=== PATIENT | male | born 1945 | race Caucasian/White ===

== ENCOUNTER → 2017-11-13 07:07 | Outpatient (CLI) | payer MEDICARE, SELFPAY ==
[2017-11-13 09:41] LABS: ALB/GLOB Ratio 1.1 RATIO (0.9-2.4); AST(SGOT) 24 U/L (15-37); Alanine Aminotransfer ALT/SGPT 26 U/L (16-61); Albumin, Serum 3.6 g/dL (3.2-5.0); Alkaline Phosphatase 83 U/L (45-117); Anion Gap 4 (5-15); BUN 16 mg/dL (7-18); BUN/Creat Ratio 15.2 RATIO (10-20); Calcium,Total 8.4 mg/dL (8.5-10.1); Chloride 105 mmol/L (98-107); Cholesterol 146 mg/dL (200); Creatinine, Serum 1.05 mg/dL (0.70-1.30); EST Glomerular Filtration Rate 73 mL/min (>60); Est Glom Filt Rate - Afr Amer 89 mL/min (>60); Globulin 3.3 g/dL (2.2-4.2); Glucose 87 mg/dL (74-106); High Density Lipoprotein 53 mg/dL; Potassium 4.2 mmol/L (3.5-5.1); Protein, Total 6.9 g/dL (6.4-8.2); Sodium Level 140 mmol/L (136-145); Triglycerides 166 mg/dL; Very Low Density Lipoprotein 33 mg/dL (5-40)
== END ==
PROVIDERS: Family Provider Family Medicine; PCP Family Medicine; Visit Provider Family Medicine
DX: I10 Essential (primary) hypertension (principal); R35.0 Frequency of micturition
CPT/HCPCS: 36415; 80053; 80061

== ENCOUNTER → 2018-05-03 07:36 | Outpatient (CLI) | payer MEDICARE, SELFPAY ==
[2018-04-26 09:21] VITALS: BMI 27.4
--- NOTE | 2018-05-03 07:40 | US_ITS ---
STUDY: SCROTUM ULTRASOUND REASON FOR EXAM: Male, 72 years old. Bilateral groin swelling, shooting pain left side. TECHNIQUE: Ultrasound evaluation of the scrotum was performed with color Doppler and static [place]-scale imaging. COMPARISON: None. FINDINGS: RIGHT TESTICLE INTRATESTICULAR: There is a normal size of the right testicle. The right testicle measures 4.0 x 2.6 x 1.9 cm. There is a homogenous echotexture. There is normal arterial and normal venous vascularity. There is no demonstrated right testicular mass or cyst. EXTRATESTICULAR: The epididymis is normal in size. The epididymis head measures 0.7 x 1.0 x 0.7 cm. There is normal vascularity of the epididymis. There is no demonstrated epididymal cystic structure. There is no demonstrated hydrocele. There is no demonstrated varicocele. There is no demonstrated extratesticular mass or cyst. LEFT TESTICLE INTRATESTICULAR: There is a normal size of the left testicle. The left testicle measures 3.6 x 2.8 x 1.8 cm. There is a homogenous echotexture. There is normal arterial and normal venous vascularity. There is no demonstrated left testicular mass or cyst. EXTRATESTICULAR: The epididymis is normal in size. The epididymis head measures 0.9 x 1.0 x 0.9 cm. There is normal vascularity of the epididymis. There is no demonstrated epididymal cystic structure. There is a small hydrocele. There is no demonstrated varicocele. There is no demonstrated extratesticular mass or cyst. US/Testicular with Arterial Flow IMPRESSION: Small left hydrocele compared to the right, otherwise normal scrotal ultrasound. There is no demonstrated hernia. Electronically Signed: Zhen Valentine MD at 19:57 EST , Service support ,
[2018-05-03 09:44] LABS: ALB/GLOB Ratio 0.9 RATIO (0.9-2.4); AST(SGOT) 26 U/L (15-37); Alanine Aminotransfer ALT/SGPT 27 U/L (16-61); Albumin, Serum 3.5 g/dL (3.2-5.0); Alkaline Phosphatase 104 U/L (45-117); Anion Gap 9 (5-15); BUN 15 mg/dL (7-18); BUN/Creat Ratio 14.2 RATIO (10-20); Calcium,Total 8.7 mg/dL (8.5-10.1); Chloride 105 mmol/L (98-107); Cholesterol 170 mg/dL (200); Creatinine, Serum 1.06 mg/dL (0.70-1.30); EST Glomerular Filtration Rate 73 mL/min (>60); Est Glom Filt Rate - Afr Amer 88 mL/min (>60); Globulin 3.7 g/dL (2.2-4.2); Glucose 86 mg/dL (74-106); High Density Lipoprotein 51 mg/dL; Potassium 4.2 mmol/L (3.5-5.1); Protein, Total 7.2 g/dL (6.4-8.2); Sodium Level 143 mmol/L (136-145); Triglycerides 239 mg/dL; Very Low Density Lipoprotein 48 mg/dL (5-40)
== END ==
PROVIDERS: Family Provider Family Medicine; PCP Family Medicine; Referring Provider Family Medicine; Visit Provider Family Medicine
DX: R35.0 Frequency of micturition (principal); E78.5 Hyperlipidemia, unspecified; I10 Essential (primary) hypertension
CPT/HCPCS: 36415; 76870; 80053; 80061; 93976

== ENCOUNTER → 2018-10-21 | Outpatient (CLI) | payer MEDICARE, SELFPAY ==
[2018-10-20 16:22] VITALS: BMI 27.4
[2018-10-21 12:42] LABS: Absolute Lymphocyte Count 1.91 X10^3/ul (0.83-4.51); Absolute Neutrophil Count 4.3 X10^3/uL (2.0-7.7); Basophil# 0.02 X10^3/uL; Basophil% 0.3 % (0-1); Eosinophil# 0.15 X10^3/uL; Eosinophils% 2.2 % (0-5); Hematocrit 44.2 % (40-54); Hemoglobin 14.7 g/dl (13.0-16.5); Lymphocyte # 1.91 X10^3/ul (4.0); Lymphocyte % 27.6 % (19-41); Mean Corp Hgb Conc 33.3 g/gl (32-36); Mean Corpuscular Hgb 29.1 pg (27.0-32.0); Mean Corpuscular Volume 87.4 fL (80-94); Mean Platelet Vol. 9.6 fl (6.2-12.0); Monocyte# 0.58 X10^3/uL; Monocyte% 8.4 % (0-10); Neutrophil # 4.25 X10^3/uL (2.7-7.7); Neutrophil % 61.4 % (47-70); Platelet Count 263 K/mm3 (150-450); RBC Distribution Width CV 13.5 % (11.6-14.6); RBC Distribution Width SD 42.3 fl (35.1-43.9); Red Blood Count 5.06 M/mm3 (4.6-6.2); White Blood Count 6.9 K/mm3 (4.4-11.0)
[2018-10-21 12:47] LABS: POSITIVE COUNT NO; POSITIVE DIFFERENTIAL NO; POSITIVE MORPHOLOGY NO
[2018-10-31 09:47] LABS: Immunoglobulin E 56 IU/mL (6-495)
== END | disposition home or self-care (01) ==
LOC: BIMLAB 08:03
PROVIDERS: Family Provider Family Medicine; PCP Family Medicine; Visit Provider Family Medicine
DX: R06.00 Dyspnea, unspecified (principal); R06.89 Other abnormalities of breathing; J42 Unspecified chronic bronchitis
CPT/HCPCS: 36415; 82785; 85025

== ENCOUNTER → 2018-11-09 | Outpatient (CLI) | payer MEDICARE, SELFPAY ==
[2018-10-20 16:22] VITALS: BMI 27.4
--- NOTE | 2018-11-09 10:55 | MRI_ITS ---
STUDY: MRI LUMBAR SPINE WITHOUT CONTRAST REASON FOR EXAM: Male, 73 years old. Low back pain. TECHNIQUE: Standardized fat and water weighted pulse sequences were obtained in the sagittal and axial planes. COMPARISON: None FINDINGS: T12-L1: Normal endplates. Normal disc height, hydration and morphology. Normal bilateral facet joints. Normal central canal and bilateral lateral recesses. Normal bilateral intervertebral neural foramina. Normal lumbar lordosis. There is no substantial scoliosis. Normal conus medullaris that terminates at the L1. L1-2: Normal endplates. Normal disc height, hydration and morphology. Normal bilateral facet joints. Normal central canal and bilateral lateral recesses. Normal bilateral intervertebral neural foramina. L2-3: Mild bilateral facet hypertrophy and moderate ligament flavum hypertrophy. Mild bilobed disc protrusion produces mild spinal stenosis but no neural foraminal stenosis. L3-4: Mild bilateral facet hypertrophy and moderate ligament flavum hypertrophy. Mild bilobed disc protrusion produces mild spinal stenosis and mild bilateral neural foraminal stenosis. L4-5: Mild bilateral facet hypertrophy and moderate ligament flavum hypertrophy. Mild broad disc protrusion produces mild spinal stenosis with mild bilateral lateral recess stenosis and mild bilateral neural foraminal stenosis. L5-S1: Mild bilateral facet hypertrophy with fluid in the facet joints consistent with instability. 5 L retrolisthesis of L5 on S1 with a mild broad disc protrusion produces moderate spinal stenosis with moderate bilateral lateral recess stenosis with abutment of the S1 nerve roots bilaterally and mild bilateral neural foraminal stenosis. Normal visualized sacral ala. Normal visualized paraspinous soft tissue structures. MRI/Spine Lumbar (Routine) IMPRESSION: Multilevel degenerative changes, as described above. Electronically Signed: Dannie Boston MD at 15:23 EDT Tel , Service support ,
== END | disposition home or self-care (01) ==
PROVIDERS: Family Provider Family Medicine; PCP Family Medicine
DX: M48.061 Spinal stenosis, lumbar region without neurogenic claudication (principal)
CPT/HCPCS: 72148

== ENCOUNTER 2019-02-10 13:08 | Day surgery (SDC) | payer MEDICARE, SELFPAY ==
[2019-01-18 11:01] VITALS: BMI 27.4
[2019-02-10] VITALS (7 sets, daily range): BP systolic 127–157; BP diastolic 68–86; PULSE 55–80; RESP 16; TEMP 36.4–36.8; O2SAT 96–100; BMI 26.4
[2019-02-10] MEDS: Lactated Ringers 1,000 ML 100 ML IV (13:40)
--- NOTE | 2019-02-10 14:25 | RAD_ITS ---
STUDY: X-RAY - LUMBAR SPINE REASON FOR EXAM: Male, 73 years old. Lumbar epidural block at L4-L5 TECHNIQUE: 3 C-arm view(s) of the lumbar spine were obtained. 20.5 seconds fluoroscopy time. COMPARISON: None FINDINGS: These limited field of view C-arm images show a needle positioned posteriorly at the L4-L5 midline level. Correlate with procedure note. Electronically Signed: Endy Tenorio MD at 23:54 EDT , Service support , RAD/Spine 1 View Any Level
--- NOTE | 2019-02-10 14:33 | DCINST_ITS ---
- Discharge Diagnoses Current Active Problems: Lower back pain and lumbar radiculopathy, with neurogenic claudication and difficulty walking Reason(s) for Visit for Discharge Instructions: Receiving lumbar epidural steroid injection at the L4-5 under fluoroscopy guidance You will use the following diet at home:: No restrictions Your food should be the consistency of: Regular Discharge Activity: Return to Normal Activity May shower in (days): 1 May resume sexual activity in: No Restrictions Weight Bearing Status: Weight bearing as tolerated Call your doctor if your incision/area has: Continuous Slow Oozing, Sudden Increased Bleeding, Increased Pain/ Swelling, Increased Redness, Foul Smelling Discharge, Swelling at the incision site Call your doctor if you observe: Fever of 101 or Higher, Coldness, Increased Pain, Numbness or Tingling, Calf discomfort, Uncontrolled pain Suture Line Care: Avoid Pulling/Pushing, Avoid Pinching/Bending Remove Dressing in (days):: 1 Cleanse incision/area with: Soap & Water Allergies/Adverse Reactions: Allergies celecoxib [From Celebrex] Allergy (Verified 02/09/19 08:45) Other FLUOROQUINOLONES Adverse Reaction (Uncoded 02/09/19 08:45) Unknown Medications to take at Discharge Niacin [Niacin ER] 500 mg PO DAILY 05/28/14 Selenium 200 mcg PO DAILY 05/28/14 sildenafil 25 mg tablet 25 mg PO QDAY PRN #7 tab 11/23/17 finasteride 5 mg tablet 5 mg PO DAILY #90 tab 05/18/18 tamsulosin 0.4 mg capsule 0.4 mg PO DAILY #90 cap 09/01/18 montelukast 10 mg tablet 10 mg PO QPM #30 tab 10/20/18 meloxicam 15 mg tablet 15 mg PO DAILY #90 tab 12/27/18 Amlodipine Besylate/Benazepril [Amlodipine-Benazepril 5-10 mg] 1 cap PO DAILY 02/09/19 Pravastatin Sodium 40 mg PO QHS 02/09/19 Primary Care Physician: Godfrey Cifuentes DO [Primary Care Provider] - Test Results: Test results from this visit will be discussed in further detail at your follow- up appointment, if applicable. Please Follow Up With: Robert Cruz MD
--- NOTE | 2019-02-10 14:34 | PCM.OPRPT ---
Problem List (1) Intervertebral disc disorder with radiculopathy of lumbar region Status: Acute (2) Intervertebral disc disorder with radiculopathy of lumbar region Status: Acute (3) Other intervertebral disc degeneration, lumbar region Status: Acute (4) Other intervertebral disc degeneration, lumbar region Status: Acute (5) Radiculopathy of lumbar region Status: Acute (6) Radiculopathy of lumbar region Status: Acute Report of Operation Date of Procedure: 02/10/19 Pre-Operative Diagnosis: Lumbar degenerative disc disease, lumbar radiculopathy, lumbar disc disease with displacement and degenerative changes causing lumbar spinal stenosis and neurogenic claudication Post-Operative Diagnosis: Same Surgery/Procedure Performed:: Lumbar epidural steroid injection at the level of the L4-5 under fluoroscopy guidance Description of Surgical Findings:: Under sterile conditions. Patient placed in the prone position, pressure points were padded, patient was ready from the nursing and the anesthesia team. After identification of the side and the target area for the block under guided fluoroscopy, the entry site was marked with marking pen. I used Betadine for sterilization of the skin, sterile draping were applied. Using 25-gauge needle to infiltrate the skin with local anesthesia using preservative-free lidocaine 0.5% injected 2.5 mL at site of entry. Using guided fluoroscopy, accessed the the posterior epidural space using 18-gauge Touhy needles under midline approach, accessed the site was assisted with lateral fluoroscopy, followed by using onid-ps-hrjiknvdca technique using preservative-free normal saline, negative aspiration of CSF and blood. Injected contrast solution [2.5] mL under live fluoroscopy which showed good spread of the contrast to the posterior epidural space and to the targeted area of the injection at[ L4-5]. Injected [5] mL of mixture of preservative-free lidocaine and Kenalog [80] mg for the procedure which showed appropriate spread in the epidural space. Lazbuddie was removed, pressure dressing were applied. Patient tolerated the procedure well and was taken to the recovery. Type of Anesthesia:: Local MAC - Complications None
[2019-02-10] MEDS: Triamcinolone Acetonide 40 MG/ML Vial (14:44)
== END 2019-02-10 15:38 | disposition home or self-care (01) ==
LOC: SDC 13:08 → AC 13:10
PROVIDERS: Family Provider Family Medicine; PCP Family Medicine; Referring Provider Anesthesiology; Visit Provider Anesthesiology
PROC: 3E0S3BZ Introduction of Anesthetic Agent into Epidural Space, Percutaneous Approach (ICD-10-PCS; CPT 62322; principal; 2019-02-10 14:20)
DX: M51.16 Intervertebral disc disorders with radiculopathy, lumbar region (principal); M48.062 Spinal stenosis, lumbar region with neurogenic claudication; M47.26 Other spondylosis with radiculopathy, lumbar region; M99.53 Intervertebral disc stenosis of neural canal of lumbar region; N40.0 Benign prostatic hyperplasia without lower urinary tract symptoms; M19.90 Unspecified osteoarthritis, unspecified site; G47.30 Sleep apnea, unspecified; E78.00 Pure hypercholesterolemia, unspecified; I10 Essential (primary) hypertension; Z79.899 Other long term (current) drug therapy; Z87.891 Personal history of nicotine dependence
CPT/HCPCS: 62323; 64483; 72020; J7120

== ENCOUNTER → 2019-03-28 | Outpatient (CLI) | payer MEDICARE, SELFPAY ==
[2019-02-10 13:24] VITALS: BMI 26.4
[2019-03-28 11:29] LABS: PSA,Total - Annual Screen 2.36 ng/mL (0.00-4.00)
== END | disposition home or self-care (01) ==
LOC: LAB.FUTURE 09:17
PROVIDERS: Family Provider Family Medicine; PCP Family Medicine; Referring Provider Urology; Visit Provider Urology
DX: Z12.5 Encounter for screening for malignant neoplasm of prostate (principal)
CPT/HCPCS: 36415; 84153; G0103

== ENCOUNTER → 2019-09-29 11:05 | Outpatient (CLI) | payer MEDICARE, SELFPAY ==
[2019-04-11 09:02] VITALS: BMI 26.4
--- NOTE | 2019-09-29 11:08 | RAD_ITS ---
STUDY: X-RAY - CERVICAL SPINE REASON FOR EXAM: Male, 74 years old. Left shoulder pain, neck pain -- x years TECHNIQUE: 4 view(s) of the cervical spine were obtained. COMPARISON: None FINDINGS: Normal anterior atlantoaxial articulation. Normal odontoid process. Normal cervical lordosis. There is multi-level endplate spondylosis. Normal visualized intervertebral neuroforamina. There are atherosclerotic vascular calcifications of the carotid arteries. RAD/Cerv Spine 4 or 5 Views IMPRESSION: Spondylosis and disc space narrowing at the C4-C5 C5-6 and C6-C7 levels. Atherosclerotic calcification of the left carotid bifurcation. 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 Electronically Signed: Vazquez Stone, at 12:26 EDT , Service support ,
--- NOTE | 2019-09-29 11:12 | RAD_ITS ---
STUDY: X-RAY - LEFT SHOULDER REASON FOR EXAM: Male, 74 years old. Left shoulder pain, neck pain -- x years TECHNIQUE: 4 view(s) of the shoulder. COMPARISON: None. FINDINGS: Normal glenohumeral articulation. Normal acromioclavicular joint. Normal acromion. Normal humeral head and visualized proximal humerus. The soft tissue structures are unremarkable. Normal visualized pulmonary apex. RAD/Shoulder min 2 Views IMPRESSION: Normal x-ray examination of the shoulder. Electronically Signed: Vazquez Stone, at 12:26 EDT , Service support ,
== END ==
PROVIDERS: PCP Family Medicine; Referring Provider Anesthesiology; Visit Provider Anesthesiology
DX: M54.2 Cervicalgia (principal); M25.512 Pain in left shoulder
CPT/HCPCS: 72050; 73030

== ENCOUNTER → 2020-01-17 06:04 | Outpatient (CLI) | payer MEDICARE, SELFPAY ==
[2020-01-10 10:33] VITALS: BMI 26.4
--- NOTE | 2020-01-18 13:37 | STRESSREP ---
Stress Test Report Date: 01/18/2020 Procedure: Exercise tolerance test/imaging study Indications: Shortness of breath Consent: Per the patient Procedure: The patient exercised on a Eulalio protocol for 9 minutes achieving a peak heart rate of 141 bpm (97 % predicted maximal heart rate) with a peak blood pressure 128/80 mmHg and a peak MET capacity of 10.2 METs. The baseline ECG demonstrated normal sinus rhythm. The peak exercise ECG demonstrated no significant ischemic changes. EKG during recovery revealed no significant ischemic changes [There were no cardiac dysrhythmias pretest, during exercise, or recovery]. The functional capacity was considered excellent for age. There was [no complaint of chest discomfort during exercise or recovery]. The examination was discontinued secondary to dyspnea. Impression: 1. Technically adequate (percent predicted maximal heart rate greater than 85%) exercise tolerance test 2. Stress test is negative for exercise-induced EKG changes of ischemia 3. The test test is negative for exercise-induced chest pain 4. Functional capacity is excellent for age 5. Nuclear images pending Myocardial perfusion imaging study: Technique: The patient was injected with 11.4 mCi of technetium 99m Cardiolite and subsequently rest SPECT Cardiolite nuclear imaging was obtained in the horizontal long, vertical long, and short axis views. The patient exercised on a Eulalio protocol. Please see above for details. The patient was injected with 36 mCi of technetium 99m Cardiolite and subsequently stress SPECT Cardiolite nuclear imaging was obtained in the horizontal long, vertical long, and short axis views. A gated Cardiolite study at peak stress was obtained. Interpretation: Rest and stress SPECT Cardiolite nuclear imaging status post realignment, normalization, and attenuation correction, demonstrates normal myocardial radioisotope uptake after attenuation correction. The gated Cardiolite study demonstrates no significant regional wall motion abnormalities. The reported LVEF is 66 %. Impression: 1. There is no evidence of significant ischemia or infarction. 2. The gated Cardiolite study reports an LVEF of 66 %. This note was generated with [employer] software. It may contain incorrect words, spelling, and punctuation that were not noted in checking the note before signing.
== END ==
PROVIDERS: PCP Family Medicine; Referring Provider Family Medicine; Visit Provider Family Medicine
DX: R07.9 Chest pain, unspecified (principal)
CPT/HCPCS: 78452; 93017; A9500; A4216

== ENCOUNTER → 2020-02-01 09:48 | Outpatient (CLI) | payer MEDICARE, SELFPAY ==
[2020-01-10 10:33] VITALS: BMI 26.4
--- NOTE | 2020-02-01 09:50 | CDU_ITS ---
Reason For Study: Vertigo, Jaw pain Rt. Velocities/BP Lt. Velocities/BP Prox CCA 86.4/12.1 cm/sec. Prox CCA 107.1/15.1 cm/sec. Mid CCA 87.7/12.1 cm/sec. Mid CCA 124.7/15.2 cm/sec. Dist CCA 77.3/16 cm/sec. Dist CCA 90/15.2 cm/sec. Prox ICA 102.3/22.5 cm/sec. Prox ICA 135.7/29.8 cm/sec. Mid ICA 94.9/20 cm/sec. Mid ICA 86.4/20.6 cm/sec. Dist ICA 99.8/21.2 cm/sec. Dist ICA 86.4/22.5 cm/sec. Rt. ICA/CCA = 1.18. Lt. ICA/CCA = 1.27. Prox ECA 396.1/10.7 cm/sec. Prox ECA 86.4/2.4 cm/sec. Rt. Vert. 67.9/9 cm/sec. Lt. Vert. 59.7/12.4 cm/sec. Right Extracranial There is homogeneous, smooth atherosclerotic plaque noted in the right common carotid artery. There is heterogeneous, irregular atherosclerotic plaque noted in the right internal carotid artery. There is heterogeneous, irregular atherosclerotic plaque noted in the right external carotid artery. Antegrade flow is noted in the right vertebral artery. Left Extracranial There is homogeneous, smooth atherosclerotic plaque noted in the left common carotid artery. There is heterogeneous, irregular atherosclerotic plaque noted in the left internal carotid artery. There is heterogeneous, irregular atherosclerotic plaque noted in the left external carotid artery. Antegrade flow is noted in the left vertebral artery. Procedure Carotid Duplex [id number]. Exam performed in department. Interpretation Summary Irregular calcific plaque right carotid bulb and proximal internal and external carotid arteries <50% stenosis right internal carotid >50% stenosis right external carotid Irregular calcific plaque with shadowing at the proximal left internal carotid artery. 50-69% stenosis left internal carotid <50% stenosis left external carotid Patent and antegrade vertebrals bilaterally Ordering Physician: Godfrey Cifuentes Referring Physician: Godfrey Cifuentes Performed By: Ayleen Sher RVT and Student
== END ==
PROVIDERS: PCP Family Medicine; Referring Provider Family Medicine; Visit Provider Family Medicine
DX: R42 Dizziness and giddiness (principal); R68.84 Jaw pain
CPT/HCPCS: 93880

== ENCOUNTER → 2020-02-23 06:26 | Outpatient (CLI) | payer MEDICARE, SELFPAY ==
[2020-01-10 10:33] VITALS: BMI 26.4
--- NOTE | 2020-02-23 07:00 | MRI_ITS ---
STUDY: MRI CERVICAL SPINE WITHOUT CONTRAST REASON FOR EXAM: Male, 74 years old. Bilat shoulder pain and numbness x 4-6 weeks, neck pain TECHNIQUE: Standardized fat and water weighted pulse sequences were obtained in the sagittal and axial planes. COMPARISON: None FINDINGS: Normal foramen magnum and brainstem-cervical cord junction. Mild degenerative osteoarthrosis of the right lateral atlantooccipital articulation. Normal anterior atlantoaxial articulation. Normal odontoid process. Normal cervical lordosis. Normal vertebral bodies and posterior osseous elements. C2-3: Normal endplates. Normal disc height, signal and morphology. Normal central canal and intervertebral neural foramina. C3-4: Normal endplates. Normal disc height, signal and morphology. Normal central canal and intervertebral neural foramina. C4-5: Mild MODIC type II degenerative vertebral marrow fatty changes underneath the vertebral endplates. Minimal anterior marginal spurs. Mild disc space height narrowing. Normal central canal. Mild stenosis of the intervertebral neural foramina. C5-6: Pronounced disc space height narrowing with partial ankylosis of the vertebral bodies. Normal central canal and intervertebral neural foramina. C6-7: Minimal anterior marginal spurs. Asymmetric spurs arising from the uncovertebral joints, left greater than right. Moderate disc space height narrowing. Normal central canal. Moderate stenosis of the left intervertebral neural foramen. Mild stenosis of the right intervertebral neural foramen. C7-T1: Normal endplates. Normal disc height, signal and morphology. Normal central canal and intervertebral neural foramina. T1-T2, T2-T3 and T3-T4: (Sagittal only). Normal endplates. Normal disc height and morphology. Normal central canal and intervertebral neural foramina. Normal cervical cord. Normal visualized soft tissue structures. MRI/Spine Cervical (Routine) IMPRESSION: 1. Moderate C6-C7 disc space height narrowing, moderate stenosis of the left C6-C7 intervertebral neural foramen and mild stenosis of the right intervertebral neural foramen due to osteophytes arising from the uncovertebral joints. 2. Mild stenosis of the C4-C5 intervertebral neural foramina with mild disc space height narrowing. 3. Ankylosis of C5 and C6 vertebral bodies. 4. No MRI evidence of cervical extruded disc fragment. 5. Normal cervical spinal cord. Electronically Signed: Mitch Adhikari MD at 9:22 EDT , Service support ,
== END ==
PROVIDERS: PCP Family Medicine; Referring Provider Anesthesiology; Visit Provider Anesthesiology
DX: M54.12 Radiculopathy, cervical region (principal)
CPT/HCPCS: 72141

== ENCOUNTER → 2020-04-02 09:50 | Outpatient (CLI) | payer MEDICARE, SELFPAY ==
[2020-01-10 10:33] VITALS: BMI 26.4
[2020-04-01 10:22] VITALS: BMI 25.1
[2020-04-02 11:19] LABS: Erythrocyte Sedimentation Rate 25 mm/hr (0-20)
[2020-04-02 11:21] LABS: Absolute Lymphocyte Count 2.31 X10^3/uL (0.83-4.51); Absolute Neutrophil Count 3.7 X10^3/uL (2.0-7.7); Basophil# 0.03 X10^3/uL; Basophil% 0.4 % (0-1); Eosinophil# 0.07 X10^3/uL; Hemoglobin 13.3 g/dL (13.0-16.5); Lymphocyte # 2.31 X10^3/ul (4.0); Lymphocyte % 33.7 % (19-41); Mean Corp Hgb Conc 31.7 g/dL (32-36); Mean Corpuscular Volume 85.4 fL (80-94); Mean Platelet Vol. 8.5 fl (6.2-12.0); Monocyte# 0.73 X10^3/uL; Monocyte% 10.7 % (0-10); NRBC Flagged by Analyzer 0 % (0-5); Neutrophil # 3.69 X10^3/uL (2.7-7.7); Neutrophil % 53.9 % (47-70); Platelet Count 437 K/mm3 (150-450); RBC Distribution Width CV 15.1 % (11.6-14.6); RBC Distribution Width SD 47.4 fl (35.1-43.9); Red Blood Count 4.92 M/mm3 (4.6-6.2); White Blood Count 6.9 K/mm3 (4.4-11.0)
[2020-04-02 11:35] LABS: PSA,Total - Annual Screen 4.17 ng/mL (0.00-4.00)
== END ==
PROVIDERS: Orthopaedic Surgery; PCP Family Medicine; Referring Provider Urology; Visit Provider Urology
DX: M54.2 Cervicalgia (principal); Z12.5 Encounter for screening for malignant neoplasm of prostate
CPT/HCPCS: 36415; 84153; 85025; 85652; G0103

== ENCOUNTER → 2020-04-18 09:09 | Outpatient (CLI) | payer MEDICARE, SELFPAY ==
[2020-04-01 10:22] VITALS: BMI 25.1
[2020-04-18 10:05] LABS: ALB/GLOB Ratio 0.7 RATIO (0.9-2.4); AST(SGOT) 20 U/L (15-37); Alanine Aminotransfer ALT/SGPT 37 U/L (16-61); Albumin, Serum 3.1 g/dL (3.2-5.0); Alkaline Phosphatase 122 U/L (45-117); Anion Gap 3 (5-15); BUN 14 mg/dL (7-18); BUN/Creat Ratio 16.1 RATIO (10-20); Chloride 106 mmol/L (98-107); Cholesterol 148 mg/dL (200); Creatinine, Serum 0.87 mg/dL (0.70-1.30); EST Glomerular Filtration Rate 91 mL/min (>60); Est Glom Filt Rate - Afr Amer 110 mL/min (>60); Globulin 4.3 g/dL (2.2-4.2); Glucose 91 mg/dL (74-106); High Density Lipoprotein 51 mg/dL; Potassium 4.4 mmol/L (3.5-5.1); Protein, Total 7.4 g/dL (6.4-8.2); Sodium Level 139 mmol/L (136-145); Triglycerides 108 mg/dL; Very Low Density Lipoprotein 22 mg/dL (5-40)
== END ==
PROVIDERS: PCP Family Medicine; Referring Provider Family Medicine; Visit Provider Family Medicine
DX: E78.5 Hyperlipidemia, unspecified (principal); R07.9 Chest pain, unspecified
CPT/HCPCS: 36415; 80053; 80061

== ENCOUNTER → 2020-05-06 08:20 | Outpatient (CLI) | payer MEDICARE, SELFPAY ==
[2020-04-01 10:22] VITALS: BMI 25.1
--- NOTE | 2020-05-06 09:32 | NEURO ---
NCS and/or EMG Patient Report Ordering Doctor: Jacob Holloway DATE OF SERVICE: 05/06/20 Indication: Intermittent, bilateral, hand numbness. Symptoms have been present for several months and are exacerbated by physical activity. The patient reports a history of chronic neck pain with occasional radiation down the bilateral upper extremities. Evaluate for cervical radiculopathy. Findings: Nerve conduction studies were performed in the right and left upper extremities. The right median motor study recording the abductor pollicis brevis showed a normal amplitude, normal distal latency and normal conduction velocity. The right ulnar motor study recording the abductor digiti minimi showed a normal amplitude, normal distal latency and normal conduction velocity. No conduction block or focal slowing was present across the elbow. The right median sensory response recording digit two showed a reduced amplitude, prolonged latency and slowed conduction velocity. The right ulnar sensory response recording digit five showed a normal amplitude, latency and conduction velocity. The right radial sensory response recording over the extensor snuff box showed a normal amplitude, latency and conduction velocity. As routine median motor and sensory studies only demonstrated mild abnormalities, additional internal comparison studies were done to confirm this finding. Right median-ulnar mixed palmar latencies showed a prolonged median latency compared to the ulnar. The left median motor study recording the abductor pollicis brevis showed a normal amplitude and normal distal latency The left median sensory response recording digit two showed a normal amplitude, prolonged latency and normal conduction velocity. Left median-ulnar mixed palmar latencies showed a prolonged median latency compared to the ulnar. Needle EMG of the right upper extremity and cervical paraspinal muscles was performed. No active denervation was seen in any examined muscle. Motor units were large, long and polyphasic with reduced recruitment in the abductor pollicis brevis, first dorsal interosseous, and extensor indices muscles. Motor units were borderline large amplitude, long duration in the triceps and flexor carpi radialis muscles. All other muscles were normal. Needle EMG of the left upper extremity and cervical paraspinal muscles was performed. No active denervation was seen in any examined muscle. Motor units were large, long and polyphasic with reduced recruitment in the abductor pollicis brevis, first dorsal interosseous, and extensor indices muscles. Motor units were borderline large amplitude, long duration in the triceps and flexor carpi radialis muscles. All other muscles were normal. Impression: This is an abnormal and complex study. There is electrophysiologic evidence consistent with: 1. Bilateral median neuropathies across the wrists (mild on the right, mild on the left). There is no active denervation of the thenar muscles to suggest ongoing axonal loss. 2. Bilateral, chronic C8/T1 radiculopathies (moderate on the right, moderate on the left) without active denervation. 3. There is additional evidence suggestive, but not diagnostic of, mild, chronic C7 radiculopathies in both upper extremities. Thus, the patient has a double crush, two separate conditions that may result in upper extremity pain and similar sensory symptoms. Clinical correlation is needed in helping to determine the relative contributions of the two to the patients symptoms. Lastly, please note: because of the two co-existent conditions, this study would be theoretically insensitive in detecting an additional superimposed brachial plexopathy. David Santana D.O.
== END ==
PROVIDERS: PCP Family Medicine; Referring Provider Orthopaedic Surgery; Visit Provider Orthopaedic Surgery
DX: M54.2 Cervicalgia (principal)
CPT/HCPCS: 95886; 95911; 95912

== ENCOUNTER → 2020-06-06 08:44 | Outpatient (CLI) | payer MEDICARE, SELFPAY ==
--- NOTE | 2020-06-06 08:45 | ART_ITS ---
Reason For Study: rule out thoracic outlet syndrome Procedure A bilateral upper extremity continuous wave Doppler with analog waveform analysis and segmental pressures. Left Segmental Pressures Left brachial= 79mmHg. Left forearm by way of the radial artery = 93mmHg. Left radial= 89mmHg. Left ulnar= 98mmHg. Left digit = 53 mmHg. The left subclavian waveforms are triphasic. The left axillary waveforms are biphasic. The left brachial waveforms are monophasic. The left radial waveforms are monophasic. The left ulnar waveforms are monophasic. Right Segmental Pressures Right brachial= 93mmHg. Right forearm pressure by way of the radial artery = 89mmHg. Right radial= 110mmHg. Right ulnar= 96mmHg. Right digit = 62 mmHg. The right subclavian waveforms are triphasic. The right axillary waveforms are biphasic. The right brachial waveforms are monophasic. The right radial waveforms are monophasic. The right ulnar waveforms are monophasic. Indices The right wrist-brachial index is 1.18. The right digital-brachial index is .67. The left wrist- brachial index is 1.05. The left digital-brachial index is .57. Interpretation Summary Ab normal bilateral upper extremity noninvasive arterial examination evaluation for possible thoracic outlet syndrome with biphasic bilateral axillary Doppler waveforms and subsequent monophasic waveforms distally bilaterally. Provocative positioning is abnormal bilaterally Findings are consistent with bilateral thoracic outlet syndrome. Ongoing clinical evaluation indicated Ordering Physician: Jacob Holloway Performed By: KHUSHBU GUILLORY T
== END ==
PROVIDERS: PCP Family Medicine; Referring Provider Orthopaedic Surgery; Visit Provider Orthopaedic Surgery
DX: G54.0 Brachial plexus disorders (principal); M51.16 Intervertebral disc disorders with radiculopathy, lumbar region; M79.601 Pain in right arm; M79.602 Pain in left arm
CPT/HCPCS: 93923

== ENCOUNTER → 2020-09-30 09:19 | Outpatient (CLI) | payer MEDICARE, SELFPAY ==
[2020-09-30 11:23] LABS: PSA,Total- Diagnostic 3.79 ng/mL (0.0-4.0)
== END ==
PROVIDERS: PCP Family Medicine; Visit Provider Urology
DX: N40.1 Benign prostatic hyperplasia with lower urinary tract symptoms (principal)
CPT/HCPCS: 36415; 84153

== ENCOUNTER → 2020-10-31 11:10 | Outpatient (CLI) | payer MEDICARE, SELFPAY ==
[2020-10-30 16:27] VITALS: BMI 25.1
--- NOTE | 2020-10-31 11:11 | VDLE_ITS ---
Reason For Study: Right leg swelling RIGHT GSV is normal. CFV is compressible, spontaneous, phasic, competent and demonstrates normal augmentation. FV is compressible, spontaneous, phasic, competent and demonstrates normal augmentation. POP V is compressible, spontaneous, phasic, competent and demonstrates normal augmentation. T/P Trunk is compressible. PTV is compressible. RT PerV is compressible. Large nonvascularized structure noted in the right popliteal fossa to mid calf. Procedure This is a venous duplex using B-mode, color flow and spectral Doppler. Exam performed in department. A preliminary report was called and/or faxed to [facility]. VL/Venous Duplex US, Unilateral Interpretation Summary There is no evidence of right lower extremity deep vein thrombosis. Right great saphenous vein appears patent and compressible segmentally. 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 Clinical correlation would be appropriate . Ordering Physician: Godfrey Cifuentes Referring Physician: Godfrey Cifuentes Performed By: Ayleen Sher RVT and Student
== END ==
PROVIDERS: PCP Family Medicine; Referring Provider Family Medicine; Visit Provider Family Medicine
DX: R07.9 Chest pain, unspecified (principal)
CPT/HCPCS: 93971

== ENCOUNTER → 2020-11-15 07:36 | Outpatient (CLI) | payer MEDICARE, SELFPAY ==
[2020-10-31 14:50] LABS: BUN 13 mg/dL (7-18); Creatinine, Serum 0.87 mg/dL (0.70-1.30); EST Glomerular Filtration Rate 91 mL/min (>60); Est Glom Filt Rate - Afr Amer 110 mL/min (>60)
[2020-11-13 14:06] VITALS: BMI 25.1
--- NOTE | 2020-11-15 07:41 | CT_ITS ---
STUDY: CTA CHEST REASON FOR EXAM: Male, 75 years old. Thoracic outlet syndrome, carotid stenosis, stricture RADIATION DOSAGE (If Supplied By Facility): CTDIvol = ( 13.27 ) mGy, DLP = ( 1988.13 ) mGycm TECHNIQUE: The examination was performed with the intravenous administration of IV 75mL Isovue-370. Post-processing of the angiographic images was performed, with multiplanar reformation and 3D reconstruction. Individualized dose optimization techniques were used for this CT. COMPARISON: None. FINDINGS: There is narrowing of the proximal portion of the left subclavian artery with the arms over the patient''s head. This results with the arms on the side of the patient. This is suggestive of a thoracic outlet syndrome. Normal enhancement of the main pulmonary artery and right and left pulmonary arteries. Normal enhancement of the bilateral peripheral pulmonary arteries. There is no demonstrated pulmonary embolism. There is atherosclerotic calcification of the aortic arch with tortuosity. There is no demonstrated aortic dissection. There are calcifications of the coronary arteries. Normal mediastinum. Normal hilar regions. Normal visualized trachea and bronchi. The lungs are well expanded. Normal pulmonary parenchyma. Normal pleura. Normal chest wall structures. There are degenerative changes of thoracic spine. Gallstone. 1.1 cm cyst in the posterior aspect of the right lobe of the liver. CT/CTA Chest W/WO Contrast IMPRESSION: Findings in keeping with thoracic outlet syndrome of the left upper extremity. Electronically Signed: Vazquez Stone MD at 9:02 EDT , Service support ,
--- NOTE | 2020-11-15 07:42 | CT_ITS ---
STUDY: CTA NECK WITH CONTRAST REASON FOR EXAM: Male, 75 years old. CAROTID ARTERY STENOSIS RADIATION DOSAGE (If Supplied By Facility): CTDIvol = ( 13.27 ) mGy, DLP = ( 1988.13 ) mGycm TECHNIQUE: CT angiography with multi-detector data acquisition was performed from the aortic arch to the skull base following intravenous administration of IV 75mL Isovue-370. MIP images were reconstructed from the axial data set. Post-processing of the angiographic images was performed, with multiplanar reformation and 3D reconstruction. Individualized dose optimization techniques were used for this CT. COMPARISON: None. FINDINGS: AORTIC ARCH: There is atherosclerotic calcific plaque formation of the aortic arch and great vessels arising from the aortic arch, without a hemodynamically significant stenosis. There is a normal origin of the brachiocephalic, left common carotid, and left subclavian arteries. RIGHT CAROTID ARTERIES: Normal right common carotid artery (CCA). Normal right common carotid bulb. There is extensive atherosclerotic plaque formation of the origin of the right internal carotid artery with an estimated stenosis of greater than 70%. Normal visualized cervical portion of the right internal carotid artery. Normal origin of the right external carotid artery (ECA). LEFT CAROTID ARTERIES: Normal left common carotid artery (CCA). Normal left common carotid bulb. There is moderate atherosclerotic plaque formation of the origin of the left internal carotid artery with an estimated stenosis of 50-69% stenosis. Normal visualized cervical portion of the left internal carotid artery. Normal origin of the left external carotid artery (ECA). VERTEBRAL ARTERIES: Normal bilateral vertebral arteries. CT/CTA Neck W/WO Contrast IMPRESSION: High-grade stenosis at the origins of both internal carotid arteries more prominent on the right side. Electronically Signed: Vazquez Stone MD at 8:59 EDT , Service support ,
== END ==
PROVIDERS: PCP Family Medicine; Referring Provider Surgery Vascular Surgery; Visit Provider Surgery Vascular Surgery
DX: I77.1 Stricture of artery (principal); G54.0 Brachial plexus disorders; I10 Essential (primary) hypertension; I65.23 Occlusion and stenosis of bilateral carotid arteries
CPT/HCPCS: 36415; 70498; 71275; 82565; 84520; Q9967

== ENCOUNTER → 2021-03-25 07:36 | Outpatient (CLI) | payer MEDICARE, SELFPAY ==
--- NOTE | 2021-03-25 08:02 | MRI_ITS ---
STUDY: MRI LEFT SHOULDER REASON FOR EXAM: Left shoulder pain for several months, limited range of motion. TECHNIQUE: Standardized fat and water weighted pulse sequences were obtained in all 3 orthogonal planes. COMPARISON: Radiographs 09/29/2019. FINDINGS: There is mild supraspinatus tendinosis and a small low to intermediate grade partial-thickness tear of the articular surface of the posterior supraspinatus tendon (T2 coronal image 9; T2 sagittal image 14) measuring approximately 0.4 cm in length and width. There is mild infraspinatus tendinosis (T2 coronal image 12) without discrete tendon tear. There is mild subscapularis tendinosis (T2 axial image 15) without discrete tendon tear. Normal teres minor tendon. Normal supraspinatus muscle. Normal infraspinatus muscle. Normal subscapularis muscle. Normal teres minor muscle. There is a small glenohumeral joint effusion. There are small cysts in the greater tuberosity. There is a tear with nonvisualization of the intracapsular long biceps tendon. There are small tears of the superior labrum (T2 coronal images 10, 11) and posterior inferior labrum (proton-density axial image 15). Normal capsulo- ligamentous complex. There is acromioclavicular arthrosis without substantial undersurface osteophytes (T2 sagittal image 7). There is a Type II morphology (curved), with a neutral orientation. There is a small volume of subacromial-subdeltoid bursal fluid (T2 coronal images 6-8). Normal visualized coracohumeral and coracoacromial ligaments. Normal deltoid muscle. Normal trapezius muscle. MRI/Upper Ext Joint Only(Routine) IMPRESSION: Small partial-thickness tear and mild tendinosis of the supraspinatus tendon. Mild infraspinatus and subscapularis tendinosis. Tear of the long biceps tendon. Small labral tears. Acromioclavicular arthrosis. Mild subacromial-subdeltoid bursitis. Small glenohumeral joint effusion. Electronically Signed: Niall Uribe MD at 9:57 EDT Tel , Service support ,
== END ==
PROVIDERS: PCP Family Medicine; Referring Provider Anesthesiology; Visit Provider Anesthesiology
DX: M75.52 Bursitis of left shoulder (principal); M19.012 Primary osteoarthritis, left shoulder
CPT/HCPCS: 73221

== ENCOUNTER → 2021-04-22 14:48 | Outpatient (CLI) | payer MEDICARE, SELFPAY ==
[2021-04-22 17:17] LABS: ALB/GLOB Ratio 0.8 RATIO (0.9-2.4); AST(SGOT) 19 U/L (15-37); Alanine Aminotransfer ALT/SGPT 32 U/L (16-61); Albumin, Serum 3.2 g/dL (3.2-5.0); Alkaline Phosphatase 94 U/L (45-117); Anion Gap 6 (5-15); BUN 17 mg/dL (7-18); BUN/Creat Ratio 18.2 RATIO (10-20); Calcium,Total 8.6 mg/dL (8.5-10.1); Chloride 106 mmol/L (98-107); Cholesterol 185 mg/dL (200); Creatinine, Serum 0.94 mg/dL (0.70-1.30); EST Glomerular Filtration Rate 83 mL/min (>60); Est Glom Filt Rate - Afr Amer 101 mL/min (>60); Globulin 3.8 g/dL (2.2-4.2); Glucose 100 mg/dL (74-106); High Density Lipoprotein 68 mg/dL; PSA,Total - Annual Screen 4.23 ng/mL (0.00-4.00); Sodium Level 138 mmol/L (136-145); Triglycerides 181 mg/dL; Very Low Density Lipoprotein 36 mg/dL (5-40)
== END ==
PROVIDERS: PCP Family Medicine; Referring Provider Family Medicine; Visit Provider Family Medicine
DX: I10 Essential (primary) hypertension (principal); N40.0 Benign prostatic hyperplasia without lower urinary tract symptoms
CPT/HCPCS: 36415; 80053; 80061; 84153; G0103

== ENCOUNTER → 2021-09-29 | Outpatient (CLI) | payer MEDICARE, SELFPAY ==
[2021-09-29 10:09] LABS: PSA,Total- Diagnostic 6.12 ng/mL (0.0-4.0)
== END | disposition home or self-care (01) ==
PROVIDERS: PCP Family Medicine; Referring Provider Urology; Visit Provider Urology
DX: R97.20 Elevated prostate specific antigen [PSA] (principal)
CPT/HCPCS: 36415; 84153

== ENCOUNTER → 2021-10-21 | Outpatient (CLI) | payer MEDICARE, SELFPAY ==
--- NOTE | 2021-10-21 | PROSBIL_PTH ---
PATIENT: OSVALDO DANIELS LOC: [facility] U#:[id number] AGE/SX: 76/M ROOM: RE10/21/[address]: Dr. Casa Simmons MD : 1945 BED: DIS: 10/21/2021 SPEC #: [id number] RECD: 10/22/21 11:44 STATUS: JUAN RESimba #: [id number] ELIZABETH: 10/21/21 00:[address]: Casa Simmons DEPT: SURGICAL PATHOLOGY RECD BY: Jakob Nielsen ENTERED: 10/22/21 11:45 SP TYPE: PROST BX ROSA DR: Dr. Godfrey Cifuentes, DO Tissues: A - PROSTATE RIGHT B - PROSTATE RIGHT C - PROSTATE RIGHT D - PROSTATE LEFT E - PROSTATE LEFT F - PROSTATE LEFT Procedures: PROSTATE BX HEADER OPERATION: Prostate biopsy PRE-OP DIAGNOSIS: Elevated PSA TISSUE SUBMITTED: A - Right apex, B - Right mid, C - Right base, D - Left apex, E - Left mid, F - Left base MICROSCOPIC DIAGNOSIS A. Right prostate, apex, core biopsy: Focal high-grade prostatic intraepithelial neoplasia (HGPIN). Focal basal cell hyperplasia. B. Right prostate, mid, core biopsy: Prostatic adenocarcinoma. Henrik grade: 3+3=6 Number of cores involved: 05/31 Proportion of tissue involved: ~15-20% Perineural invasion: Not identified. Greatest tumor length: 0.2 cm Focal mild chronic inflammation. See comment. C. Right prostate, base, core biopsy: Prostatic tissue, negative for malignancy. Focal mild chronic inflammation. D. Left prostate, apex, core biopsy: Prostatic tissue, negative for malignancy. Focal basal cell hyperplasia. E. Left prostate, mid, core biopsy: Focal high-grade prostatic intraepithelial neoplasia (HGPIN). F. Left prostate, base, core biopsy: Prostatic tissue, negative for malignancy. SJ:janeth 10/23/2021 COMMENT B. Immunohistochemistry ([id number]) supports the above diagnosis. Case has been reviewed in consultation with Dr. Messer who concurs with the above diagnosis. IDC:AM MICROSCOPIC DESCRIPTION Slides are reviewed. GROSS DESCRIPTION A - Received is one container designated prostate, right apex. The specimen consists of one elongated fragment of light berrios-white soft tissue measuring 1.1 cm in length and 0.1 cm in diameter. The specimen is totally submitted in one cassette. B - Received is one container designated prostate, right mid. The specimen consists of one elongated fragment of light berrios-white soft tissue measuring 1.1 cm in length and 0.1 cm in diameter. The specimen is totally submitted in one cassette. C - Received is one container designated prostate, right base. The specimen consists of one elongated fragment of light berrios-white soft tissue measuring 1 cm in length and 0.1 cm in diameter. The specimen is totally submitted in one cassette. D - Received is one container designated prostate, left apex. The specimen consists of one elongated fragment of light berrios-white soft tissue measuring 1 cm in length and 0.1 cm in diameter. The specimen is totally submitted in one cassette. E - Received is one container designated prostate, left mid. The specimen consists of one elongated fragment of light berrios-white soft tissue measuring 1.1 cm in length and 0.1 cm in diameter. The specimen is totally submitted in one cassette. F - Received is one container designated prostate, left base. The specimen consists of one elongated fragment of light berrios-white soft tissue measuring 1 cm in length and 0.1 cm in diameter. The specimen is totally submitted in one cassette. / SJ:rg 10/22/2021 TC:0 CPT: G0146
--- NOTE | 2021-10-21 | IMM_PTH ---
PATIENT: OSVALDO DANIELS LOC: [facility] U#:[id number] AGE/SX: 76/M ROOM: RE10/21/[address]: Dr. Casa Simmons MD : 1945 BED: DIS: 10/21/2021 SPEC #: [id number] RECD: 10/23/21 10:07 STATUS: JUAN REQ #: [id number] ELIZABETH: 10/21/21 00:[address]: Casa Simmons DEPT: IMMUNOHISTOCHEMISTRY RECD BY: Penny Lorenzo ENTERED: 10/23/21 10:07 SP TYPE: IMMUNO OTHR DR: Dr. Godfrey Cifuentes, DO Tissues: B - PROSTATE RIGHT Procedures: P40 (add) 34BE12 (initial) PHYSICIAN & INSTITUTION [place] [id number] SPECIMEN INFORMATION: Tissue Source: B - Right prostate, mid, core biopsy Clinical Info: Elevated PSA Specimen Number: [id number] CPT code: 95126, 15347 METHODOLOGY: Deparaffinized sections of prefer/formalin-fixed tissue or PAP/DQ stained slides are incubated with monoclonal/polyclonal antibodies/oligonucleotide probes. Localization is made via biotin free immunoperoxidase method. Appropriate controls are performed and reacted as expected. Results on target cell population are indicated in the following table: RESULTS: ANTIBODY / CLONE RESULT Block B P40 (BC28) negative 34BE12 (34BE12) negative These tests were developed and their performance characteristics determined by [facility]. They may not have been cleared or approved by the [place]. Food and Drug Administration. The FDA has determined that such clearance or approval is not necessary. The above immunohistochemical/dualISH markers are ordered and reviewed by the Pathologist. INTERPRETATION: B. Right prostate, mid, core biopsy: Adenocarcinoma. SJ:janeth 10/24/2021
== END | disposition home or self-care (01) ==
LOC: LABSPEC 16:30
PROVIDERS: PCP Family Medicine; Referring Provider Urology; Visit Provider Urology
DX: C61 Malignant neoplasm of prostate (principal)
CPT/HCPCS: 88305; 88341; 88342; G0416

== ENCOUNTER → 2022-02-19 | Outpatient (CLI) | payer MEDICARE, SELFPAY ==
--- NOTE | 2022-02-19 07:34 | ADU_ITS ---
Reason For Study: stricture of artery Right Velocities Left Velocities Ext. Iliac Artery, dist = 164.9 cm./sec. Ext Iliac Artery, dist = 209.2 cm./sec. Common Femoral Artery, mid = 115.6 cm./sec. Common Femoral Artery, mid = 145.5 cm./sec. Supf Femoral Artery, prox = 108.3 cm./sec. Supf. Femoral Artery, prox = 124.7 cm./sec. Supf Femoral Artery, mid = 143 cm./sec. Supf. Femoral Artery, mid = 161.3 cm./sec. Supf Femoral Artery, dist. = 186.8 cm./sec. Supf. Femoral Artery, dist = 148.5 cm./sec. Profunda Femoral Artery = 110.1 cm./sec. Profunda Femoral Artery = 95.5 cm./sec. Popliteal Artery, mid = 99.2 cm./sec. Popliteal Artery, mid = 133.9 cm./sec. Ant. Tibial Artery, prox = 75.4 cm./sec. Ant.Tibial Artery, prox = 110.1 cm./sec. Ant. Tibial Artery, mid = 97.4 cm./sec. Ant Tibial Artery, mid = 115.6 cm./sec. Ant. Tibial Artery, dist = 84.6 cm./sec. Ant. Tibial Artery, distal = 102.8 cm./sec. Post. Tibial Artery, prox = 113.8 cm./sec. Post. Tibial Artery, prox = 128.4 cm./sec. Post. Tibial Artery, mid = 110.1 cm./sec. Post Tibial Artery, mid = 139.4 cm./sec. Post. Tibial Artery, dist = 130.2 cm./sec. Post Tibial Artery, dist. = 133.9 cm./sec. Peroneal Artery, prox = 86.4 cm./sec. Peroneal Artery, prox = 88.2 cm./sec. Peroneal Artery, mid = 97.4 cm./sec. Peroneal Artery, mid = 99.2 cm./sec. Peroneal Artery,dist = 90.0 cm./sec. Peroneal Artery,dist. = 70.0 cm./sec. /US Art Duplex Bilat Lower Ext Interpretation Summary Bilateral lower extremities with no evidence of significant occlusive disease. Triphasic flow noted throughout. Some elevated velocities noted in the tibials. Ordering Physician: Rico uBsh Referring Physician: Rico Bush Performed By: Sanya Sharif RVT
--- NOTE | 2022-02-19 07:34 | CDU_ITS ---
Reason For Study: carotid stenosis Rt. Velocities/BP Lt. Velocities/BP Prox CCA 89.4/10.2 cm/sec. Prox CCA 103.6/14.6 cm/sec. Mid CCA 78.4/13.5 cm/sec. Mid CCA 113.5/16.8 cm/sec. Dist CCA 79.5/15.7 cm/sec. Dist CCA 93.8/14.6 cm/sec. Prox ICA 85.0/16.8 cm/sec. Prox ICA 139.4/26.1 cm/sec. Mid ICA 99.2/22.3 cm/sec. Mid ICA 77.3/17.9 cm/sec. Dist ICA 122.9/26.1 cm/sec. Dist ICA 81.7/20.1 cm/sec. Rt. ICA/CCA = 1.6. Lt. ICA/CCA = 1.2. Prox ECA 236.6/18.9 cm/sec. Prox ECA 180.7/5.0 cm/sec. Rt. Vert. 51.3/6.0 cm/sec. Lt. Vert. 56.4/10.2 cm/sec. Right Extracranial There is homogeneous, smooth atherosclerotic plaque noted in the right common carotid artery. There is heterogeneous, irregular atherosclerotic plaque noted in the right internal carotid artery. There is heterogeneous, irregular atherosclerotic plaque noted in the right external carotid artery. Antegrade flow is noted in the right vertebral artery. Left Extracranial There is homogeneous, smooth atherosclerotic plaque noted in the left common carotid artery. There is heterogeneous, irregular atherosclerotic plaque noted in the left internal carotid artery. There is heterogeneous, irregular atherosclerotic plaque noted in the left external carotid artery. Antegrade flow is noted in the left vertebral artery. Procedure Carotid Duplex 32516. This is a Carotid Duplex examination using B-mode, color flow and specral Doppler. The exam was diagnostic. Exam performed in department. VL/Carotid Duplex Ultrasound Interpretation Summary Mild (<50%) stenosis right extracranial internal carotid. Moderate (50-69%) vickie nosis left extracranial internal carotid. Flow within the vertebral arteries is antegrade bilaterally. Ordering Physician: Rico Bush Referring Physician: Rico Bush Performed By: Sanya Sharif RVT
--- NOTE | 2022-02-19 07:35 | ART_ITS ---
Reason For Study: thoracic outlet, S/P UE angioplasty Procedure A bilateral upper extremity continuous wave Doppler with analog waveform analysis and segmental pressures. Left Segmental Pressures Left brachial= 167mmHg. Left forearm by way of the radial artery = 153mmHg. Left radial= 181mmHg. Left ulnar= 186mmHg. The left radial waveforms are biphasic. The left ulnar waveforms are triphasic. Right Segmental Pressures Right brachial= 165mmHg. Right forearm pressure by way of the radial artery = 167mmHg. Right radial= 176mmHg. Right ulnar= 187mmHg. The right radial waveforms are biphasic. The right ulnar waveforms are biphasic. Indices The right wrist-brachial index is 1.12. The left wrist-brachial index is 1.11. VL/Ankle Brachial Index Interpretation Summary Bilateral upper extremities with no evidence of significant occlusive disease a t rest with a wrist brachial index of 1.12 and 1.11. Bilateral triphasic flow noted. Ordering Physician: Janay Bush Referring Physician: JANAY BORJAS MD Performed By: Sanya Sharif RVT
--- NOTE | 2022-02-19 08:11 | ART_ITS ---
Reason For Study: stricture of artery Procedure A bilateral lower extremity continuous wave Doppler with analog waveform analysis and ankle brachial indexes. Left Segmental Pressures Left brachial= 175mmHg. Left posterior tibial artery = 179mmHg. Left dorsalis pedis artery = 178mmHg. The left dorsalis pedis waveforms are triphasic. The left posterior tibial artery waveforms are triphasic. Right Segmental Pressures Right brachial= 166mmHg. Right posterior tibial artery = 194mmHg. Right dorsalis pedis artery = 170mmHg. The right dorsalis pedis waveforms are triphasic. The right posterior tibial artery waveforms are triphasic. Indices The right ankle brachial index by the posterior tibial artery is 1.11. The right ankle brachial index by the dorsalis pedis is .97. The left ankle brachial index by the dorsalis pedis is 1.02. The left ankle brachial index by the posterior tibial artery is 1.02. VL/Ankle Brachial Index Interpretation Summary Bilateral lower extremities with no evidence of significant occlusive disease a t rest with triphasic flow and an MARLIN 1.11 and 1.02. Ordering Physician: Janay Bernard Referring Physician: JANAY BERNARD DR. Performed By: Sanya Sharif RVT
== END | disposition home or self-care (01) ==
LOC: CVS 07:33
PROVIDERS: PCP Family Medicine; Referring Provider Surgery Vascular Surgery; Visit Provider Surgery Vascular Surgery
DX: I65.23 Occlusion and stenosis of bilateral carotid arteries (principal); I77.1 Stricture of artery; G54.0 Brachial plexus disorders
CPT/HCPCS: 93880; 93922; 93925; 93930

== ENCOUNTER → 2022-03-03 | Outpatient (CLI) | payer MEDICARE, SELFPAY ==
[2022-03-03 09:45] LABS: PSA,Total- Diagnostic 4.92 ng/mL (0.0-4.0)
== END | disposition home or self-care (01) ==
LOC: LAB 08:53
PROVIDERS: PCP Family Medicine; Referring Provider Urology; Visit Provider Urology
DX: C61 Malignant neoplasm of prostate (principal)
CPT/HCPCS: 36415; 84153

== ENCOUNTER 2022-04-29 09:25 | Outpatient (CLI) | payer MEDICARE, SELFPAY ==
[2022-04-29 12:46] LABS: ALB/GLOB Ratio 0.9 RATIO (0.9-2.4); AST(SGOT) 17 U/L (15-37); Alanine Aminotransfer ALT/SGPT 21 U/L (16-61); Albumin, Serum 3.4 g/dL (3.2-5.0); Alkaline Phosphatase 128 U/L (45-117); Anion Gap 7 (5-15); BUN 17 mg/dL (7-18); Calcium,Total 8.8 mg/dL (8.5-10.1); Chloride 103 mmol/L (98-107); Cholesterol 157 mg/dL (200); Creatinine, Serum 0.85 mg/dL (0.70-1.30); EST Glomerular Filtration Rate 93 mL/min (>60); Est Glom Filt Rate - Afr Amer 112 mL/min (>60); Globulin 3.8 g/dL (2.2-4.2); Glucose 103 mg/dL (74-106); High Density Lipoprotein 65 mg/dL; Potassium 4.3 mmol/L (3.5-5.1); Protein, Total 7.2 g/dL (6.4-8.2); Sodium Level 136 mmol/L (136-145); Triglycerides 94 mg/dL; Very Low Density Lipoprotein 19 mg/dL (5-40)
== END 2022-04-29 23:59 | disposition home or self-care (01) ==
LOC: BIMLAB 09:26
PROVIDERS: PCP Family Medicine; Referring Provider Family Medicine; Visit Provider Family Medicine
DX: I10 Essential (primary) hypertension (principal); E78.5 Hyperlipidemia, unspecified
CPT/HCPCS: 36415; 80053; 80061

== ENCOUNTER → 2022-09-01 | Outpatient (CLI) | payer MEDICARE, SELFPAY ==
[2022-09-01 09:18] LABS: PSA,Total- Diagnostic 5.81 ng/mL (0.0-4.0)
== END | disposition home or self-care (01) ==
LOC: LAB 08:19
PROVIDERS: PCP Family Medicine; Referring Provider Registered Nurse; Visit Provider Registered Nurse
DX: C61 Malignant neoplasm of prostate (principal)
CPT/HCPCS: 36415; 84153

== ENCOUNTER → 2022-11-11 | Outpatient (CLI) | payer MEDICARE, SELFPAY ==
--- NOTE | 2022-11-11 07:25 | MRI_ITS ---
STUDY: MRI LEFT KNEE REASON FOR EXAM: Male, 77 years old. Pain and swelling. History of Bakers cyst. TECHNIQUE: Standardized fat and water weighted pulse sequences were obtained in all 3 orthogonal planes. COMPARISON: Left knee x-rays dated November 04, 2022. FINDINGS: Substantial loss of substance of the medial meniscus with truncation of posterior horn, body and anterior horn. An undersurface fraying of the posterior horn of the medial meniscus with a horizontal cleavage tear of the remaining posterior horn remnant (sagittal series 4 images 4-11). Moderate to marked thinning of the articular cartilage of the medial femorotibial compartment with reactive subchondral bone marrow edema with multiple small full-thickness chondral defects (coronal series 7 images 12-21). Mild MCL sprain (coronal series 7 image 17). Normal distal semimembranosus, gracilis and semitendinosus tendons. Complex tear of the body of the lateral meniscus with mild extrusion of the lateral meniscus (coronal series 7 images 11-17). Moderate thinning of the articular cartilage of the lateral femorotibial compartment with reactive subchondral bone marrow edema and osteophyte formation (coronal series 7 images 11-18). Reactive subchondral bone marrow edema at the ACL insertion (coronal series 7 images 16-20). Normal proximal tibiofibular articulation. Normal lateral collateral (fibular) ligament. Normal popliteus tendon. Normal biceps femoris tendon. Normal anterior cruciate ligament (ACL). Normal posterior cruciate ligament (PCL). Lateral tilt and subluxation of the patella with surface irregularity of the articular cartilage of the patellofemoral compartment and moderate thinning of the articular cartilage of the inferior aspect of the lateral patellar facet (axial series 2 images 7-13). Normal medial and lateral patellar retinaculum. Normal quadriceps tendon. Normal patellar tendon. Normal Hoffa''s fat pad. Deep infrapatellar bursitis (sagittal series 4 image 19). Moderate-sized joint effusion with medial plica and large dissecting septated popliteal cyst with debris within it and ruptured distally resulting in posterior compartmental interstitial edema (axial series 2 images 6-27). Prepatellar subcutaneous soft tissue edema (sagittal series 4 images 15-17). Normal visualized osseous structures. MRI/Lower Ext Joint Only (Routine) IMPRESSION: Substantial loss of substance of the medial meniscus with undersurface fraying of the posterior horn and a horizontal cleavage tear of the remaining posterior horn remnant. Moderate to marked thinning of the articular cartilage of the medial femorotibial compartment with multiple small full-thickness chondral defects. MCL sprain. Complex tear of the body of the lateral meniscus with mild extrusion of the lateral meniscus. Moderate thinning of the articular cartilage of the lateral femorotibial compartment. Reactive subchondral bone marrow edema at the ACL insertion. Lateral tilt and subluxation of the patella with surface irregularity of the articular cartilage of the patellofemoral compartment and moderate thinning of the articular cartilage of the inferior aspect of the lateral patellar facet. Deep infrapatellar bursitis. Prepatellar subcutaneous soft tissue edema. Moderate-sized joint effusion with medial plica and large dissecting septated popliteal cyst with debris and rupture distally as described. Electronically Signed: Hussain Jacobson MD at 9:35 EDT ,
== END | disposition home or self-care (01) ==
PROVIDERS: PCP Family Medicine; Referring Provider Physician Assistant; Visit Provider Physician Assistant
DX: M25.462 Effusion, left knee (principal)
CPT/HCPCS: 73721

== ENCOUNTER → 2023-02-09 | Outpatient (CLI) | payer MEDICARE, SELFPAY | END | disposition home or self-care (01) | LOC: PSN 08:10 | PROVIDERS: PCP Family Medicine; Referring Provider Family Medicine; Visit Provider Family Medicine | DX: R55 Syncope and collapse (principal) | CPT/HCPCS: 93225; 93226 ==

== ENCOUNTER → 2023-02-22 | Outpatient (CLI) | payer MEDICARE, SELFPAY | END | disposition home or self-care (01) | LOC: PSN 08:01 | PROVIDERS: PCP Family Medicine; Referring Provider Family Medicine; Visit Provider Family Medicine | DX: R55 Syncope and collapse (principal) | CPT/HCPCS: 93225; 93226 ==

== ENCOUNTER → 2023-03-23 | Outpatient (CLI) | payer MEDICARE, SELFPAY ==
--- NOTE | 2023-03-23 12:30 | STE_ITS ---
Reason For Study: Syncope Stress Results Protocol: Stress Echocardiogram Dobutamine Protocol Maximum Predicted HR: 141 bpm Target HR: 120 bpm % Maximum Predicted HR: 91 % DurationHeart Rate Stage (mm:ss) (bpm) BP Dose Comment Baseline 64 153/65 Patient denies chest pain Stage 1 3:28 92 143/5910.00Patient denies chest pain Stage 2 3:00 111 133/5320.00Patient denies chest pain Stage 3 1:04 129 129/5630.00Patient denies chest pain Recovery 84 152/70 Patient denies any chest pain. Stress Duration: 7:32 mm:ss Maximum Stress HR: 129 bpm Baseline Echocardiogram Findings Left ventricular systolic function is normal. The right ventricle is normal in size, function, and thickness. The left and right atria are normal. Bubble contrast study is positive for PFO. There is Mild focal posterior mitral annular calcification. Trisinus/trileaflet aortic valve. The pulmonic valve is not well visualized. No pericardial effusion. Stress Echo Wall motion Data Resting WM Intermediate WM Stress WM Resting Wall Motion Wall Motion Int. Wall Motion Stress No regional wall motion All segments Hyperkinetic. All segments Hyperkinetic. abnormalities noted. EKG Data The baseline ECG displays normal sinus rhythm. During stress, there were no ST or T wave changes noted to suggest ischemia. ECHO/Stress Test Echo w/o Contrast Interpretation Summary No ECG evidence of dobutamine induced ischemia. Normal augmentation of all left ventricular wall segments with dobutamine infus ion. No dobutamine infusion induced wall motion abnormalities noted. Negative dobutamine stress test for ischemia. Bubble contrast study was performed and is positive for shunt. Ordering Physician: Godfrey Cifuentes Referring Physician: Godfrey Cifuentes Performed By: Dangelo Whitehead RCS
== END | disposition home or self-care (01) ==
LOC: CVS 12:29
PROVIDERS: PCP Family Medicine; Referring Provider Family Medicine; Visit Provider Family Medicine
DX: R55 Syncope and collapse (principal)
CPT/HCPCS: 93017; 93350; A4216

== ENCOUNTER → 2023-05-04 | Outpatient (CLI) | payer MEDICARE, SELFPAY ==
[2023-05-04 09:43] LABS: PSA,Total- Diagnostic 7.99 ng/mL (0.0-4.0)
[2023-05-05 15:13] LABS: ALB/GLOB Ratio 0.9 RATIO (0.9-2.4); AST(SGOT) 29 U/L (15-37); Alanine Aminotransfer ALT/SGPT 26 U/L (16-61); Albumin, Serum 3.6 g/dL (3.2-5.0); Alkaline Phosphatase 112 U/L (45-117); Anion Gap 5 (5-15); BUN 16 mg/dL (7-18); BUN/Creat Ratio 15.7 RATIO (10-20); Calcium,Total 9.1 mg/dL (8.5-10.1); Chloride 103 mmol/L (98-107); Cholesterol 166 mg/dL (200); Creatinine, Serum 1.02 mg/dL (0.70-1.30); EST Glomerular Filtration Rate 75 mL/min (>60); Est Glom Filt Rate - Afr Amer 90 mL/min (>60); Globulin 3.8 g/dL (2.2-4.2); Glucose 97 mg/dL (74-106); High Density Lipoprotein 64 mg/dL; Potassium 5.3 mmol/L (3.5-5.1); Protein, Total 7.4 g/dL (6.4-8.2); Sodium Level 135 mmol/L (136-145); Triglycerides 102 mg/dL; Very Low Density Lipoprotein 20 mg/dL (5-40)
== END | disposition home or self-care (01) ==
LOC: LAB 08:05
PROVIDERS: PCP Family Medicine; Referring Provider Urology; Visit Provider Urology
DX: C61 Malignant neoplasm of prostate (principal); I10 Essential (primary) hypertension; E78.5 Hyperlipidemia, unspecified
CPT/HCPCS: 36415; 80053; 80061; 84153

== ENCOUNTER → 2023-05-14 | Outpatient (CLI) | payer MEDICARE, SELFPAY ==
--- NOTE | 2023-05-14 08:09 | CT_ITS ---
CT LEFT LOWER EXTREMITY WITH 3-D IMAGING CLINICAL INDICATION: Templating for left TKA. TECHNIQUE: Axial CT images of the left lower extremity (left hip, left knee, and left ankle) was performed without IV contrast material. Coronal and sagittal reformats were provided. RADIATION DOSAGE (If Supplied By Facility): CTDIvol = ( 21.18 ) mGy, DLP = ( 1539.87 ) mGycm COMPARISON: Left knee radiographs dated 11/04/2022. Left knee MRI dated 11/11/2022. FINDINGS: Bones: There is degenerative arthrosis of the left hip joint with joint space narrowing, marginal osteophyte formation, and subchondral cyst formation in the left acetabulum. There is mild to moderate tricompartment degenerative arthrosis with joint space narrowing and areas of subchondral sclerosis. There is slight lateral patellar tilt and subluxation. Normal left ankle. Osseous structures are intact without evidence of fracture or dislocation. No lytic or blastic osseous masses. Soft Tissues: There is a moderate knee joint effusion. The deep soft tissue structures are unremarkable. The superficial soft tissues are unremarkable without evidence of edema, hematoma, or foreign body. 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 Slight lateral patellar tilt and subluxation. Moderate left knee joint effusion. Electronically Signed: Serjio Meek MD at 13:31 EST Reading Location ID and State: [facility] / [place] , Service support ,
== END | disposition home or self-care (01) ==
LOC: CT 08:08
PROVIDERS: PCP Family Medicine; Referring Provider Orthopaedic Surgery; Visit Provider Orthopaedic Surgery
DX: M17.0 Bilateral primary osteoarthritis of knee (principal)
CPT/HCPCS: 73700

== ENCOUNTER 2023-05-18 08:55 | Day surgery (SDC) | payer MEDICARE, SELFPAY ==
--- NOTE | 2023-05-10 08:29 | EKG12_ITS ---
Test Reason : PREOP Blood Pressure : / mmHG Vent. Rate : 064 BPM Atrial Rate : 064 BPM P-R Int : 148 ms QRS Dur : 096 ms QT Int : 386 ms P-R-T Axes : 030 -04 036 degrees QTc Int : 398 ms Sinus rhythm with Premature atrial complexes Otherwise normal ECG Confirmed by JENNIFER HENNING, LEI ([id number]), loan expeditor GINI LOVE ([id number]) on 05/11/2023 6:14:16 AM Referred By: DANNI Confirmed By:LAUREN RODRIGUEZ MD
[2023-05-10 09:50] LABS: Absolute Lymphocyte Count 2.25 X10^3/uL (0.83-4.51); Absolute Neutrophil Count 5.1 X10^3/uL (2.0-7.7); Basophil# 0.05 X10^3/uL; Basophil% 0.6 % (0-1); Eosinophils% 1.2 % (0-5); Hemoglobin 13.2 g/dL (13.0-16.5); Lymphocyte # 2.25 X10^3/ul (0.83-4.51); Lymphocyte % 27.2 % (19-41); Mean Corp Hgb Conc 31.4 g/dL (32-36); Mean Corpuscular Hgb 27.8 pg (27.0-32.0); Mean Corpuscular Volume 88.4 fL (80-94); Mean Platelet Vol. 8.5 fl (6.2-12.0); Monocyte# 0.76 X10^3/uL; Monocyte% 9.2 % (0-10); NRBC Flagged by Analyzer 0 % (0-5); Neutrophil # 5.08 X10^3/uL (2.7-7.7); Neutrophil % 61.4 % (47-70); Platelet Count 398 K/mm3 (150-450); RBC Distribution Width CV 14.5 % (11.6-14.6); RBC Distribution Width SD 46.7 fl (35.1-43.9); Red Blood Count 4.75 M/mm3 (4.6-6.2); White Blood Count 8.3 K/mm3 (4.4-11.0)
[2023-05-10 10:00] LABS: International Normalized Ratio 0.9; Partial Thromboplast Time 28.6 Seconds (24.1-36.2); Prothrombin Time (Protime)PT. 11.8 SECONDS (11.7-14.9)
[2023-05-10 10:10] LABS: Hemoglobin A1c 5.1 % (3.8-5.6)
[2023-05-10 10:30] LABS: Anion Gap 8 (5-15); BUN 16 mg/dL (7-18); BUN/Creat Ratio 18.6 RATIO (10-20); Calcium,Total 8.9 mg/dL (8.5-10.1); Chloride 103 mmol/L (98-107); Creatinine, Serum 0.86 mg/dL (0.70-1.30); EST Glomerular Filtration Rate 91 mL/min (>60); Est Glom Filt Rate - Afr Amer 110 mL/min (>60); Glucose 92 mg/dL (74-106); Magnesium 2.3 mg/dL (1.6-2.6); Sodium Level 137 mmol/L (136-145)
[2023-05-11 08:10] LABS: Fructosamine 198 umol/L (0-285)
[2023-05-18] VITALS (11 sets, daily range): BP systolic 89–145; BP diastolic 45–75; PULSE 73–111; RESP 13–16; TEMP 36–37.1; O2SAT 97–100; BMI 24.3
[2023-05-18] MEDS: Gabapentin 600 MG Tablet PO (09:22)
[2023-05-18] MEDS: Acetaminophen 500 MG Tablet 1000 MG PO ×2 (09:23→16:32)
[2023-05-18] MEDS: Magnesium 1 GM over 15 mins IV (09:27)
[2023-05-18] MEDS: Lactated Ringers 1,000 ML 15 ML IV (09:27)
[2023-05-18] MEDS: Scopolamine 1mg/72hr Patch 1 PATCH TD (09:28)
[2023-05-18 09:48] LABS: Bedside Glucose 102 mg/dL (74-106)
--- NOTE | 2023-05-18 10:39 | PCM.HP.BLA ---
History and Physical Date of Admission: 05/18/23 [facility] [address] [place] [address] OFFICE VISIT Date of Service: 03/31/23 MR#: [id number] Acct: [id number] Name: OSVALDO ATWOOD Rep #: [id number] : 1945 Provider: Dr. Jose Rodriguez DO Age/Sex: 77/M Location: [facility] [place].[facility] Status: Signed Intake Vital Signs 02/03/2309:50 Height 5 ft 10 in Intake Visit Reasons: LEFT KNEE Chief Complaint: Left knee Accompanied by: Self Is patient in pain?: Yes Allergies celecoxib [From Celebrex] Allergy (Verified 03/31/23 09:09) OtherQuinolones Adverse Reaction (Verified 03/31/23 09:09) NEEDS FOLLOW-UP Medications hxwimjvk-eu-ndybo 300 mcg-K 60 mcg-lycop 600 mcg-lutein 300 mcg tablet (Centrum Silver Men) 1 tab PO DAILY 04/11/19 [History Confirmed 03/31/23] selenium 200 mcg capsule 200 mcg PO DAILY 04/22/21 [History Confirmed 03/31/23] amlodipine 5 mg-benazepril 10 mg capsule 1 cap PO DAILY HTN #90 caps 04/29/22 [Rx Confirmed 03/31/23] finasteride 5 mg tablet 5 mg PO DAILY #90 tabs 04/29/22 [Rx Confirmed 03/31/23] diclofenac sodium 75 mg tablet,delayed release 75 mg PO BID PRN pain #60 tabs 12/21/22 [Rx Confirmed 03/31/23] methocarbamol 750 mg tablet 750 mg PO TID PRN pain (scale score 4-6) #60 tabs 12/21/22 [Rx Confirmed 03/31/23] loratadine 10 mg disintegrating tablet (Claritin RediTabs) 10 mg PO DAILY PRN 02/03/23 [History Confirmed 03/31/23] montelukast 10 mg tablet 10 mg PO DAILY PRN 02/03/23 [History Confirmed 03/31/23] tamsulosin 0.4 mg capsule 0.4 mg PO DAILY #90 caps 02/11/23 [Rx Confirmed 03/31/23] pravastatin 40 mg tablet 40 mg PO QHS #90 tabs 03/02/23 [Rx Confirmed 03/31/23] PFSH Medical History Chronic bronchitis History of back pain Hyperlipemia Hypertension Sleep apnea Surgical History History of shoulder surgery Hx of angioplasty Family History Father Heart disease Social History Smoking Status: Former smoker alcohol intake: current alcohol intake frequency: holidays/special occasions only substance use type: does not use what type of physical activity do you participate in: walking and weight training frequency: 3-4 times per week HPI LEFT KNEE Details: This documentation accurately reflects the service provided and the decisions made by me, Dr. Jose Rodriguez, DO 03/31/23 0800. Part of today?s visit was documented by [ ], acting as scribe. OSVALDO ATWOOD is a 77 year old M here today for f/u on left knee pain. He had a steroid injection on 02/12/23 and it only gave him relief for a week. He is here to discuss what his next steps are. States that his pain is gradually getting worse. States that his pain worsened when he bends it which is a 9/10 and has noitced when he is walking he hears a thumping. Ortho Exam General General: Yes no acute distress Neurologic: Yes alert and Yes oriented x3 Psychologic: Yes reasonable and appropriate Left Knee Skin/Wound: No ecchymosis, No erythema and Yes swelling Contralateral Normal: Yes Homans Sign: No 1+: Effusion Knee ROM: Yes ROM-Extension -20 to 0 (-18) and Yes ROM-Flexion 0-140 (92) Examination: Yes med jt line tenderness Stability: NML: Valgus 0 and NML: Varus 0 Apprehension with Lateral Translation: Yes Popliteal Adenopathy: No Patellar Tilt Normal: Yes Patella Grind: No KNEE: Inspection of the left knee shows no acute gross abnormalities. There is no effusion there is mild synovitis he has no ecchymosis/bruising, erythema, or any skin changes. Patient does have some mild medial joint line tenderness. No reproducible or consistent lateral joint line tenderness. Collateral ligaments are intact. He has no pains with anterior drawer. No evidence crepitus or patellofemoral grinding. Soft compartments of the lower extremity. No calf tenderness. Head: Normocephalic Atraumatic Chest: symmetrical rise, non-labored breathing, no audible wheeze Abdomen: no guarding, non-rigid Supplemental Info 11/11/2022 MRI left knee: Complex tear posterior horn medial meniscus full-thickness cartilage wear posterior medial femoral condyle posterior lateral tibial plateau , complex tear body of the lateral meniscus with extrusion moderate thinning of the lateral compartment joint effusion with medial plica ruptured Tilley's cyst 11/04/2022 x-ray left knee there is mild joint space narrowing and mild patellofemoral spurring. Coding Level of Care Code Off vis,est,level 3 Diagnoses Complex tear of lateral meniscus of left knee as current injury, subsequent encounter S83.272D Tear current or old: current Encounter type: subsequent encounter Meniscus tear of knee type: complex Laterality: left Complex tear of medial meniscus of left knee as current injury, subsequent encounter S83.232D Tear current or old: current Encounter type: subsequent encounter Meniscus tear of knee type: complex Laterality: left Primary osteoarthritis of left knee M17.12 Osteoarthritis type: primary Assessment and Plan Assessment and Plan (1) Lateral meniscus tear: Status: Acute Qualifiers: Tear current or old: current Encounter type: subsequent encounter Meniscus tear of knee type: complex Laterality: left Qualified Code(s): S83.272D - Complex tear of lateral meniscus, current injury, left knee, subsequent encounter (2) Medial meniscus tear: Status: Acute Qualifiers: Tear current or old: current Encounter type: subsequent encounter Meniscus tear of knee type: complex Laterality: left Qualified Code(s): S83.232D - Complex tear of medial meniscus, current injury, left knee, subsequent encounter (3) Osteoarthritis of left knee: Status: Acute Qualifiers: Osteoarthritis type: primary Qualified Code(s): M17.12 - Unilateral primary osteoarthritis, left knee Plan Mr. Atwood did get some relief but only temporary from the short acting steroid injection given in January. Once again we reviewed his imaging results which demonstrate medial and lateral meniscus tearing as well as full-thickness cartilage loss of the posterior side of the medial and lateral femoral condyle. Once again we thoroughly reviewed conservative and surgical intervention options including long-acting steroid injection AKA Zilretta viscosupplementation bracing of note he did try a compression sleeve and could not tolerate it and it made it worse. Anti-inflammatory medication we once again reviewed ibuprofen and Tylenol dosages formal physical therapy versus home exercises and stretching he is very active at the gym and will continue to work on this on his own, and surgical intervention options including knee arthroscopy with a higher chance of failure secondary to his amount of arthritis versus total knee arthroplasty and the risk benefits of both these procedures. Patient would like to go ahead and move forward with anti-inflammatories and Zilretta injection in April. After which time he is going to [place] for 3 months and then anticipates moving forward with total knee arthroplasty when he returns. Follow up in April or sooner if pain, swelling, numbness or associated symptoms, or concerns develop. All questions answered. Patient in agreement of plan. 03/31/23 0943 <Electronically signed by Jose Rodriguez DO> Date Jose Rodriguez DO Cosigner Signature: Date (if applicable) CC: ~ I have examined the patient and the H&P has been reviewed. There are no clinical changes since date of exam.
[2023-05-18] MEDS: Cefazolin 2 GM in 0.9% Normal Saline (100mL Bag) 100 ML IV (11:44)
--- NOTE | 2023-05-18 11:45 | KNEE_PTH ---
PATIENT: OSVALDO DANIELS LOC: [facility] [place] U#:[id number] AGE/SX: 77/M ROOM: RE05/18/[address]: Dr. Jose Rodriguez DO : 1945 BED: DIS: 05/18/2023 SPEC #: [id number] RECD: 05/19/23 09:42 STATUS: JUAN RESimba #: [id number] ELIZABETH: 05/18/23 11:[address]: Jose Rodriguez DEPT: SURGICAL PATHOLOGY RECD BY: Alyssia Hamilton ENTERED: 05/19/23 09:43 SP TYPE: TOTAL KNEE OTHR DR: Dr. Godfrey Cifuentes, DO Tissues: Knee, NOS Procedures: Decalcification bone/plaque Surgery Specimen Level IV HEADER OPERATION: EAS left total knee replacement robotic arm assisted PRE-OP DIAGNOSIS: Complex tear of lateral meniscus, current injury, left knee, subsequent encounter, unilateral primary osteoarthritis, left knee TISSUE SUBMITTED: Left knee bone and tissue MICROSCOPIC DIAGNOSIS Bone and tissue, left knee, total knee replacement/resection: Pieces of bone with degenerative osteoarthritic changes. Fibroadipose tissue, fibroconnective tissue and reactive synovial tissue. ASHLEIGH:janeth 05/26/2023 MICROSCOPIC DESCRIPTION Slides are reviewed. GROSS DESCRIPTION Received is one container designated bone and soft tissue left knee. The specimen consists of multiple fragments of berrios-yellow bone measuring in aggregate 10.0 x 10.0 x 3.5 cm. Also in the specimen container are pieces of fibrocartilaginous tissue measuring in aggregate 3.5 x 3.0 x 1.5 cm. A number of bony fragments contain articular surfaces consistent with tibial plateau and femoral condyle and displaying prominent osteophyte formation, eburnation and bone erosion. Traffic Manager sections are submitted in two cassettes as follows: 1 - fibrocartilaginous, 2 - bone after decalcification. / ASHLEIGH:janeth 05/19/2023 TC:5 CPT: 13218, 67045
[2023-05-18] MEDS: TXA 1000mg in NS100 100ml (IVPB at Incision) 660 MG IV (11:50)
[2023-05-18] MEDS: dexAMETHasone 10 MG/ML Vial IV (11:55)
[2023-05-18] MEDS: TXA 1000mg in NS100 100ml (IVPB at Closure) 660 MG IV (12:34)
[2023-05-18] MEDS: Epinephrine (1 mg/ml) 1 MG/ML VIAL (13:37)
[2023-05-18] MEDS: dexAMETHasone 4 MG/ML Vial (13:37)
[2023-05-18] MEDS: 0.9% Saline Lock 10 ML Syringe IV (13:37)
[2023-05-18] MEDS: Bupivacaine 0.5% PF 10 ML VIAL (13:37)
--- NOTE | 2023-05-18 14:02 | OP.PCM_ITS ---
Operative Report Date of Procedure: 05/18/23 Preoperative diagnosis: Left knee DJD Postoperative diagnosis: Same Procedure: Left total knee arthroplasty CT guided Robotic Assisted Implant: Brock triathlon press fit, femoral component size6, tibial baseplate size 5, asymmetric patella size 35, polyethylene X3 size 9 CS Anesthesia: Spinal with adductor canal block Tourniquet time: 12 minutes at 300 mmHg Complications: None Condition: Stable to PACU Estimated blood loss: 250 cc Javascript Front End Developer Mak Quijano. My physician wet process assistant head miller was a vital part of this case. He was important in appropriate retraction during the case, and protection of soft tissues during procedure. His intimate knowledge of the case and my steps aided in safe and expedient completion of the procedure as well as appropriate position of the extremity during the case. He was also vital in assisting with closure under my direct supervision. Indication for procedure: This is a 77-year-old male with long standing degenerative joint disease of the knee who has failed conservative treatment and wished to proceed with elective total knee arthroplasty. Risk benefits and alternatives were reviewed including; risk of bleeding, infection, nerve artery and tissue damage, continued pain, postoperative stiffness, venous thromboembolism, need for postoperative rehabilitation, mechanical feel to the knee, and expected postoperative course. The pre- operative CT and templating was performed with component sizing. Procedure: The patient was met in the preoperative holding area. The operative extremity was identified by both patient and physician and was marked. Patient was met by anesthesia. An adductor canal block was placed by anesthesia postoperatively the patient was brought back to the operating room on a wheeled cart and transferred to the operating table in the supine position. Anesthesia was started. A well-padded tourniquet was placed on the operative extremity. The patient was prepped and draped in the usual sterile fashion. A timeout was called to ensure the proper patient procedure and extremity were being contemplated. An esmarch was used to exsanguinate the extremity. The tourniquet was inflated. A 10 blade scalpel was used to make a midline incision down through the skin and subcutaneous tissue. Skin retractors placed. Bovie and Aquamantis were used to perform meticulous hemostasis. full-thickness flaps were elevated medial and lateral along the joint capsule. A deep blade scalpel was used to perform a medial parapatellar arthrotomy. The knee was brought to full extension. A bovie was used to release the soft tissues off the most proximal aspect of the medial tibial plateau, a three-quarter inch curved osteotome was also used in this process. The infrapatellar fat pad was excised. The suprapatellar fat pad was excised partially anteriorolateraly and portion the anterioromedial pad was elevated from the femur. At this point our intra- articular femoral array was placed at a 45 degree angle proximal and posterior to the medial epicondyle. femoral checkpoint was placed at this time. Our tibial array was placed greater than 1 hands breath below the incision at a 20 degree angle stab incisions were made with a 15 blade scalpel and pins were placed and attached to the tibial array , tibial checkpoint was placed in the proximal tibial metaphysis. Tourniquet was let down. At this point registration zhao were taken throughout the knee . Once the knee was registered we then tensioned the medial and lateral ligaments in extension and 90 degrees of flexion. We then used these numbers to adjust our components within parameters to balance the knee in both flexion and extension once this was done on our monitor we then proceeded with using the robotic arm to make our tibial plateau cut, anterior and posterior chamfer and distal femur cuts. we removed the cut fragments with the use of a bovie and Ozzy, we did use a lamina digital tech to insure we visualized and removed all posterior osteophytes and at this time also used the Aquamantis on the posterior joint capsule. we then trialed and achieved the desired plan with a well-balanced knee. we used the green probe to kathryn the corresponding tibial rotation based on our CT template. Lug holes were drilled in the femur the tibia preparation was completed with the appropriate sized base plate pinned based on previous rotation kathryn. An appropriate sized fin punch was used on the tibia and 4 corner drill was used for the press fit component and the patella was prepared by first using a caliper to ensure sufficient bone stock and a patellar reamer to remove the desired amount of bone. lug holes drilled for an asymmetric poly. We then brought the knee through range of motion with excellent patellar tracking. We thoroughly irrigated the knee. Trial components were removed a posterior capsular injection was preformed with our standard cocktail. In addition the aqua Mantis was also used to aid in hemostasis. Betadine rinse was allowed to sit and washed out completely. Components were press-fit into place. Aricept rinse was then used followed by several more liters of irrigation after it was allowed to sit. The joint capsule was closed with #1 Ethibond [id number] in the upper part of the arthrotomy and #1 Vicryl in the lower part of the arthrotomy. , Followed by 2-0 Vicryl in the subcutaneous tissues with alicja in the skin. Arrays and checkpoints were removed prior to closure all counts were correct stab incisions were closed with a staple standard dressing in the form of Mepilex AG for the main incision and a small Mepilex over the pin holes. Thigh-high ROB hose applied over top of dressing. Patient tolerated the procedure well and was directed to PACU in stable condition . There were no intraoperative complications.
--- NOTE | 2023-05-18 14:03 | DCINST_ITS ---
Discharge Instructions Diet Discharge Diet: No restrictions Dressing / Incision Call your doctor if you observe: Shortness of breath and Chest pain Additional Dressing/Incision Instructions:: Ice and elevate lower extremities 2 weeks while not ambulating. Ambulation is encouraged. Weight bearing as tolerated. Use assistive devise for stability. Encourage FULL knee extension and flexion 1 time EVERY time you get up and down and MULTIPLE times per day. No showering until 72 hours after surgery. Begin showering postop day #3. Remove the dressing prior to shower and gently wash with warm water and antibacterial soap then pat dry and place abdominal pad (or plain gauze) and ROB hose over top. This is to be done daily. Do not submerge for 3 weeks. If not showering daily after the initial 72 hours then you must clean incision and change dressing daily. Do not allow animals near the incision area. Keep clean. Follow anti-coagulation recommendations as prescribed. Do not take any NSAIDs while on blood thinner. Do not take any additional narcotic pain medication other than what was prescribed on your surgery day without discussing with physician. Narcotic medication can be addictive. Do not drink alcohol while taking narcotics. Supplement narcotic prescription with acetaminophen 1000 mg 4 times a day. Start physical therapy. If you are not currently scheduled for physical therapy or you are unsure of appointment time please call office DONNY to arrange. Call Dr. Rodriguez with any concerns. Follow Up Care Please Follow Up With: Jose Rodriguez DO When: 2 weeks Test Results: Test results from this visit will be discussed in further detail at your follow- up appointment, if applicable. Discharge Plan Admission Admit Date/Time: 05/18/23 08:55 Primary Reason for Your Visit: Left total knee arthroplasty Attending Provider: Jose Rodriguez Primary Care Provider: Godfrey Cifuentes Discharge Orders/Prescriptions Prescriptions: New acetaminophen [acetaminophen] 500 mg tablet 1,000 mg PO Q6H PRN Qty: 100 0RF cephalexin [cephalexin] 500 mg capsule 1,000 mg PO Q8 Qty: 4 0RF Rx Instructions: take 2 tabs at 9:00 pm and 2 tabs after 5 am when you wake up Eliquis 2.5 mg tablet 2.5 mg PO BID Qty: 28 0RF Rx Instructions: Begin morning after surgery oxycodone 5 mg tablet 5 - 10 mg PO Q4H PRN (Reason: pain) 7 Days Qty: 60 0RF Continued Centrum Silver Men 300-600-300 mcg tablet 1 tab PO DAILY selenium 200 mcg capsule 200 mcg PO DAILY montelukast 10 mg tablet 10 mg PO DAILY PRN (Reason: ASTHMA) loratadine [Claritin RediTabs] 10 mg tablet,disintegrating 10 mg PO DAILY PRN (Reason: allergy symptoms) pravastatin 40 mg tablet 40 mg PO QHS Qty: 90 1RF methocarbamol 750 mg tablet 750 mg PO TID PRN (Reason: pain (scale score 4-6)) Qty: 60 0RF amlodipine-benazepril 5-10 mg capsule 1 cap PO DAILY Qty: 90 3RF finasteride 5 mg tablet 5 mg PO DAILY Qty: 90 3RF tamsulosin 0.4 mg capsule 0.4 mg PO QHS Qty: 90 2RF Discontinued diclofenac sodium 75 mg tablet,delayed release (DR/EC) 75 mg PO BID PRN (Reason: pain) Qty: 60 1RF Referrals / Follow Up: Godfrey Cifuentes DO [Primary Care Provider] - Disposition Discharge Orders: Discharge Patient (Routine); Ordered 05/18/23 Ordered By: Dr. Jose Rodriguez
--- NOTE | 2023-05-18 14:15 | RAD_ITS ---
STUDY: X-RAY - LEFT KNEE REASON FOR EXAM: Male, 77 years old. post op pacu -- in PACU TECHNIQUE: 2 view(s) of the knee. COMPARISON: None. FINDINGS: Total knee arthroplasty is demonstrated with normal alignment. Intra-articular subcutaneous edema and fluid layering consistent with postoperative changes present. Anterior normal soft tissue alicja are present. . The soft tissue structures are unremarkable. RAD/Knee 1 or 2 Views IMPRESSION: Total knee arthroplasty show normal postoperative changes. Electronically Signed: Eitan Sanchez DO at 17:50 EST ,
[2023-05-18] MEDS: Cefazolin 1 GM/50 ML BAG IV (15:54)
== END 2023-05-18 18:22 | disposition home or self-care (01) ==
LOC: ACINP 18:22 → SDC 05-19 08:38
PROVIDERS: PCP Family Medicine; Referring Provider Orthopaedic Surgery; Visit Provider Orthopaedic Surgery
PROC: 0SRD0JZ Replacement of Left Knee Joint with Synthetic Substitute, Open Approach (ICD-10-PCS; CPT 27447; principal; 2023-05-18 11:15)
DX: M17.12 Unilateral primary osteoarthritis, left knee (principal); J42 Unspecified chronic bronchitis; I10 Essential (primary) hypertension; Z87.891 Personal history of nicotine dependence; E78.5 Hyperlipidemia, unspecified; S83.272D Complex tear of lateral meniscus, current injury, left knee, subsequent encounter; S83.232D Complex tear of medial meniscus, current injury, left knee, subsequent encounter; Z99.89 Dependence on other enabling machines and devices; G47.30 Sleep apnea, unspecified; Z98.62 Peripheral vascular angioplasty status; Z86.718 Personal history of other venous thrombosis and embolism; M54.9 Dorsalgia, unspecified; G89.29 Other chronic pain; M75.52 Bursitis of left shoulder; Z91.09 Other allergy status, other than to drugs and biological substances; M25.561 Pain in right knee; N42.9 Disorder of prostate, unspecified; Q21.12 Patent foramen ovale; Z79.899 Other long term (current) drug therapy
CPT/HCPCS: 27447; 01402; 64450; 36415; 73560; 80048; 82962; 82985; 83036; 83735; 85025; 85610; 85730; 86850; 86900; 86901; 87081; 88305; 88311; 93005; 97162; C1776; J7120; A4216; J2405; J3475

== ENCOUNTER → 2023-08-31 | Outpatient (CLI) | payer MEDICARE, SELFPAY ==
[2023-08-31 09:11] LABS: PSA,Total- Diagnostic 6.93 ng/mL (0.0-4.0)
== END | disposition home or self-care (01) ==
LOC: LAB 08:26
PROVIDERS: PCP Family Medicine; Referring Provider Urology; Visit Provider Urology
DX: R97.20 Elevated prostate specific antigen [PSA] (principal); Z80.51 Family history of malignant neoplasm of kidney
CPT/HCPCS: 36415; 84153

== ENCOUNTER → 2024-05-09 | Outpatient (CLI) | payer MEDICARE, SELFPAY ==
[2024-05-09 12:13] LABS: Absolute Lymphocyte Count 2.08 X10^3/uL (0.83-4.51); Absolute Neutrophil Count 4.3 X10^3/uL (2.0-7.7); Basophil# 0.03 X10^3/uL; Basophil% 0.4 % (0-1); Eosinophil# 0.18 X10^3/uL; Eosinophils% 2.5 % (0-5); Hematocrit 45.1 % (40-54); Hemoglobin 14.8 g/dL (13.0-16.5); Lymphocyte # 2.08 X10^3/ul (0.83-4.51); Lymphocyte % 29.2 % (19-41); Mean Corp Hgb Conc 32.8 g/dL (32-36); Mean Corpuscular Hgb 28.8 pg (27.0-32.0); Mean Corpuscular Volume 87.9 fL (80-94); Mean Platelet Vol. 9.4 fl (6.2-12.0); Monocyte# 0.55 X10^3/uL; Monocyte% 7.7 % (0-10); NRBC Flagged by Analyzer 0 % (0-5); Neutrophil # 4.27 X10^3/uL (2.7-7.7); Neutrophil % 59.9 % (47-70); Platelet Count 304 K/mm3 (150-450); RBC Distribution Width SD 45.2 fl (35.1-43.9); Red Blood Count 5.13 M/mm3 (4.6-6.2); White Blood Count 7.1 K/mm3 (4.4-11.0)
[2024-05-09 13:37] LABS: ALB/GLOB Ratio 1.1 RATIO (0.9-2.4); AST(SGOT) 23 U/L (15-37); Alanine Aminotransfer ALT/SGPT 24 U/L (16-61); Albumin, Serum 3.7 g/dL (3.2-5.0); Alkaline Phosphatase 119 U/L (45-117); Anion Gap 7 (5-15); BUN 15 mg/dL (7-18); Calcium,Total 9.2 mg/dL (8.5-10.1); Chloride 105 mmol/L (98-107); Cholesterol 169 mg/dL (200); Creatinine, Serum 0.94 mg/dL (0.70-1.30); EST Glomerular Filtration Rate 82 mL/min (>60); Est Glom Filt Rate - Afr Amer 100 mL/min (>60); Globulin 3.4 g/dL (2.2-4.2); Glucose 92 mg/dL (74-106); High Density Lipoprotein 63 mg/dL; PSA,Total- Diagnostic 8.17 ng/mL (0.0-4.0); Potassium 4.4 mmol/L (3.5-5.1); Protein, Total 7.1 g/dL (6.4-8.2); Sodium Level 138 mmol/L (136-145); Triglycerides 147 mg/dL; Very Low Density Lipoprotein 29 mg/dL (5-40)
== END | disposition home or self-care (01) ==
PROVIDERS: PCP Family Medicine; Referring Provider Family Medicine; Visit Provider Family Medicine
DX: Z00.00 Encounter for general adult medical examination without abnormal findings (principal); N40.0 Benign prostatic hyperplasia without lower urinary tract symptoms; E78.5 Hyperlipidemia, unspecified; D64.9 Anemia, unspecified
CPT/HCPCS: 36415; 80053; 80061; 84153; 85025

== ENCOUNTER → 2024-11-06 | Outpatient (CLI) | payer MEDICARE, SELFPAY ==
[2024-11-07 14:08] LABS: PSA, Free 0.52 ng/mL
== END | disposition home or self-care (01) ==
LOC: LAB 09:21
PROVIDERS: PCP Family Medicine; Referring Provider Urology; Visit Provider Urology
DX: C61 Malignant neoplasm of prostate (principal)
CPT/HCPCS: 36415; 84153; 84154

== ENCOUNTER → 2025-05-18 | Outpatient (CLI) | payer MEDICARE, SELFPAY ==
--- OUTSIDE RECORDS SUMMARY | 2025-05-18 07:18 | XMS RPT_ITS | CCD ---
Author Organization [facility] Care Team Providers Care Mixing Engineer Name Role Phone JB TAYLOR (MALIHA) Unavailable Unavailable JB TAYLOR (MALIHA) Unavailable Unavailable Dr. Godfrey Cifuentes Primary Care Provider [phone] Dr. Godfrey Cifuentes Referring Provider [phone] MALIHA Stanton Attending Provider [phone] JANAY BUSH Admitting Unavailable JANAY BUSH Attending Unavailable Dr. Godfrey Cifuentes Primary Care Provider [phone] Dr. Godfrey Cifuentes Referring Provider MALIHA Stanton Attending Provider [phone] MALIHA Banuelos Attending Provider [phone] Dr. Marcos Davis Attending Provider DR JANAY BORJAS DO A Primary Care Physician [facility] PT, Kimmy Unavailable Unavailable Dr. Godfrey Cifuentes Primary Care Provider [phone] Dr. Godfrey Cifuentes Referring Provider MALIHA Stanton Attending Provider [phone] Dr. Godfrey Cifuentes Attending Provider Dr. Jose Rodriguez Attending Provider [phone] Dr. Godfrey Cifuentes Primary Care Provider [phone] Dr. Godfrey Cifuentes Referring Provider MALIHA Stanton Attending Provider [phone] Dr. Daljit Rodriguez Attending Provider [phone] Dr. Godfrey Cifuentes Primary Care Provider [phone] Dr. Godfrey Cifuentes Referring Provider MALIHA Stanton Attending Provider [phone] Dr. Godfrey Cifuentes Attending Provider [phone] Dr. Jose Rodriguez Attending Provider [phone] Dr. Daljit Rodriguez Attending Provider MALIHA Banuelos Attending Provider [phone] Dr. Serena Tate Attending Provider [phone] Dr. Jose Rodriguez Referring Provider [phone] ALBERTO MOTLEY MD Attending Unavailable JANAY BORJAS Primary Care Unavailable JOSE RODRIGUEZ DO Attending Unavailable JANAY BORJAS Primary Care Unavailable Dr. Godfrey Cifuentes Primary Care Provider [phone] Dr. Serena Tate Attending Provider [phone] Dr. Jose Rodriguez Referring Provider [phone] Dr. Jose Rodriguez Admit Provider Dr. Jose Rodriguez Attending Provider [phone] Dr. Jose Rodriguez Other Provider [phone] Godfrey Cifuentes Referring Provider [phone] Marcos Davis Attending Provider Dr. Godfrey Cifuentes DO Primary Care Provider [phone] Troy HENNING, Dr. Casa Burton Attending Provider Troy HENNING, Dr. Casa Burton Referring Provider Dr. Godfrey Cifuentes DO Primary Care Physician Troy HENNING, Dr. Casa Burton Attending Physician Dr. Godfrey Cifuentes DO Referring Provider [phone] Mak Stanton Attending Physician Godfrey Cifuentes Primary Care Unavailable Casa Nolasco Attending Unavailable Casa Nolasco Referring Unavailable Godfrey Cifuentes Primary Care Unavailable Jose Rodriguez Attending Unavailable Brown, Godfrey R Referring Unavailable Brown, Godfrey R Primary Care Unavailable Marcos Davis Attending Unavailable Brown, Godfrey R Primary Care Unavailable Mak Stanton Attending Unavailable Brown, Godfrey R Referring Unavailable Brown, Godfrey R Referring Unavailable Brown, Godfrey R Primary Care Unavailable Brown, Godfrey R Attending Unavailable Brown, Godfrey R Primary Care Unavailable Brown, Godfrey R Attending Unavailable Brown, Godfrey R Referring Unavailable Allergies Allergy Classification Reported Allergen(s) Allergy Type Date of Onset Reaction(s) Facility (16 sources) celecoxib; Translations: [CELECOXIB] Drug Allergy 1 AOF, Other, High Blood Pressure [facility] Rep[facility] (11 sources) Quinolones (Antibiotic) Propensity to adverse reactions 2 NEEDS FOLLOW-UP [facility] (2 sources) Quinolone -class of antibiotic- (substance); Translations: [quinolone antibiotics] Drug allergy High Blood Pressure [facility] (1 source) Quinolones (Antibiotic) Drug allergy (disorder) 5 [facility] Repository Medications Current Medications Medication Drug Class(es) Dates Sig (Normalized) Sig (Original) Centrum Silver Ultra Men's oral tablet (2 sources) Start: 03-06-2019 take 1 tablet by mouth once daily Centrum Silver Ultra Men's oral tablet Dose = 1 tab(s), Oral, qDay, # 100 tab(s), 0 Refill(s) Start Date: 03/06/19 Status: Ordered montelukast 10 mg oral tablet (20 sources) Leukotriene Receptor Antagonist Start: 02-03-2023 take 1 tablet by mouth once daily as needed Montelukast 10 mg tablet Active 10 mg PO DAILY as needed for ASTHMA February 03, 2023 12:00am Complies with drug therapy Start: 11-28-2019 End: 11-04-2022 take 1 tablet by mouth once daily Montelukast 10 mg tablet Discontinued 10 mg PO DAILY 90 September 22, 2021 10:06am October 02, 2021 10:00am Start: 10-20-2018 End: 04-11-2019 take 1 tablet by mouth once daily in the evening Montelukast 10 mg tablet Discontinued 10 mg PO EVERY EVENING 30 October 20, 2018 12:00am April 11, 2019 9:58am Fjoljnip-Ief-Jk-Lycopen-Lute in (Centrum Silver Men) 300-600-300 mcg tablet (4 sources) Start: 04-11-2019 take 300-600 tablets by mouth once daily Cxhvacff-Bfh-Zd-Lycopen-Lutein (Centrum Silver Men) 300-600-300 mcg tablet Active 1 TABLET PO DAILY April 11, 2019 1:00am Lz-Umh-Relpo-A7-Xfgciti-Zfrr in (Centrum Silver Men) 300-600-300 mcg tablet (7 sources) Start: 04-11-2019 Ur-Mgs-Yeotl-O9-Ctwtvcm-Fhuy in (Centrum Silver Men) 300-600-300 mcg tablet Active 1 {tbl} PO DAILY April 11, 2019 1:00am [id number] Complies with drug therapy Start: 04-11-2019 Xq-Zbt-Nitkc-K 6-Pzpiyvi-Oceocw (Centrum Silver Men) 300-600-300 mcg tablet Active 1 {tbl} PO DAILY April 11, 2019 1:00am Start: 04-11-2019 take 300-600 tablets by mouth once daily Bl-Qji-Nfhup-N2-Jyxpmlx-Bzmewx (Centrum Silver Men) 300-600-300 mcg tablet Active 1 TABLET PO DAILY April 11, 2019 12:00am Start: 04-11-2019 take 300-600 tablets by mouth once daily Pn-Chr-Jxjdj-T0-Yfrdwtq-Zkvpog (Centrum Silver Men) 300-600-300 mcg tablet Active 1 TABLET PO DAILY April 11, 2019 1:00am niacin 500 mg oral capsule (13 sources) Nicotinic Acid Start: 03-06-2019 niacin 500 mg oral capsule Dose : 500 mg = 1 cap(s), Oral, qDay, 0 Refill(s) Start Date: 03/06/19 Status: Ordered Start: 05-28-2014 End: 04-22-2021 take 1 tablet by mouth once daily Niacin 500 MG tablet extended release 24 hr Discontinued 500 mg PO DAILY May 28, 2014 1:00am April 22, 2021 3:25pm [place] 2-Uyf-Rks-Fish Oil (Fish Oil) 60-90-500 mg capsule (1 source) Start: 02-14-2025 [place] 3-Dha-Ep a-Fish Oil (Fish Oil) 60-90-500 mg capsule Active 1 NMA PO daily February 14, 2025 12:00am Complies with drug therapy Selenium (18 sources) Start: 04-22-2021 take 200 ug by mouth once daily Selenium Active 200 MCG PO DAILY April 22, 2021 12:00am Start: 04-22-2021 take 200 ug by mouth once daily Selenium Active 200 MCG PO DAILY April 22, 2021 1:00am Start: 05-28-2014 End: 01-09-2020 take 200 ug by mouth once daily Selenium Discontinued 200 MCG PO DAILY May 28, 2014 12:00am January 09, 2020 7:32am Start: 05-28-2014 End: 01-09-2020 take 200 ug by mouth once daily Selenium Discontinued 200 MCG PO DAILY May 28, 2014 1:00am January 09, 2020 8:32am Selenium 200 mcg capsule (2 sources) Start: 04-22-2021 take 1 capsule by mouth once daily Selenium 200 mcg capsule Active 200 ug PO DAILY April 22, 2021 1:00am SUPPLEMENT Complies with drug therapy Start: 04-22-2021 take 1 capsule by [facility] once daily Selenium 200 mcg capsule Active 200 ug PO DAILY April 22, 2021 1:00am selenium 200 mcg oral tablet (2 sources) Start: 03-06-2019 selenium 200 m cg oral tablet Dose : 200 mcg = 1 tab(s), Oral, Daily, # 30 tab(s), 0 Refill(s) Start Date: 03/06/19 Status: Ordered tamsulosin hydrochloride 0.4 mg oral capsule (20 sources) alpha-Adrenergic [facility] Start: 02-03-2023 End: 02-03-2023 Tamsulosin Discontinued MG PO February 02, 2023 11:00pm February 03, 2023 9:17am Start: 02-03-2023 End: 02-03-2023 Tamsulosin Discontinued MG P O February 03, 2023 12:00am February 03, 2023 10:17am Start: 05-28-2014 End: 11-20-2024 take 1 capsule by mouth at bedtime Tamsulosin 0.4 mg capsule Active 0.4 mg PO AT BEDTIME 90 1 November 20, 2024 10:57am PROSTATE Complies with drug therapy Completed/Discontinued Medications Medication Drug Class(es) Dates Sig (Normalized) Sig (Original) acetaminophen 500 mg oral tablet (3 sources) Start: 05-18-2023 End: 06-28-2023 take 2 tablets by mouth every six hours as needed Acetaminophen 500 mg tablet Discontinued 1000 mg PO EVERY 6 HOURS NEEDED 100 0 May 18, 2023 1:00am June 28, 2023 10:43am Start: 05-18-2023 End: 06-28-2023 take 1000 mg by mouth every six hours as needed Acetaminophen Discontinued 1000 MG PO EVERY 6 HOURS NEEDED May 18, 2023 1:00am June 28, 2023 10:43am amLODIPine 5 mg / benazepril hydrochloride 10 mg oral capsule (20 sources) Dihydropyridine Calcium Channel [facility], Angiotensin Converting Enzyme Inhibitor Start: 05-28-2014 End: 05-09-2024 Amlodipine-Benazepril 5-10 mg capsule Discontinued 1 NMA PO DAILY 90 May 12, 2023 10:56am May 09, 2024 9:49am HTN Start: 05-28-2014 End: 05-12-2023 take 1 capsule by mouth once daily Amlodipine-Benazepril Discontinued 1 CAP PO DAILY May 12, 2023 10:15am May 12, 2023 10:56am apixaban 2.5 mg oral tablet (3 sources) Factor Xa Inhibitor Start: 05-18-2023 End: 06-28-2023 take 1 tablet by mouth twice daily in the morning Apixaban (Eliquis) 2.5 mg tablet Discontinued 2.5 mg PO TWICE A DAY 28 May 18, 2023 1:00am June 28, 2023 10:43am Begin morning after surgery cephalexin 500 mg oral capsule (3 sources) Cephalosporin Antibacterial Start: 05-18-2023 End: 06-28-2023 Cephalexin 500 mg capsule Discontinued 1000 mg PO EVERY 8 HOURS 4 May 18, 2023 1:00am June 28, 2023 10:43am take 2 tabs at 9:00 pm and 2 tabs after 5 am when you wake up Start: 05-18-2023 End: 06-28-2023 Cephalexin Discontinued 1000 MG PO EVERY 8 HOURS 4 May 18, 2023 1:00am June 28, 2023 10:43am take 2 tabs at 9:00 pm and 2 tabs after 5 am when you wake up clopidogrel 75 mg oral tablet (11 sources) [id number] Platelet Inhibitor Start: 04-22-2021 End: 11-04-2022 take 1 tablet by mouth once daily Clopidogrel (Plavix) 75 mg tablet Discontinued 75 mg PO DAILY April 22, 2021 1:00am November 04, 2022 9:49am diazePAM 10 mg oral tablet (11 sources) Benzodiazepine Start: 10-31-2018 End: 11-01-2018 Diazepam 10 mg tablet Discontinued 10 mg PO .COMPLEX as needed for anxiety 1 1 0 October 31, 2018 12:00am October 31, 2018 12:00am November 01, 2018 12:07am 10 mg PO 90 minutes prior to procedure PRN; diclofenac sodium 75 mg delayed release oral tablet (20 sources) Nonsteroidal Anti-inflammatory Drug Start: 12-21-2022 End: 05-18-2023 take 1 tablet by mouth twice daily as needed for pain Diclofenac Sodium 75 mg tablet,delayed release (DR/EC) Discontinued 75 mg PO TWICE A DAY as needed for pain 60 1 April 21, 2023 2:16pm May 18, 2023 3:04pm Start: 01-10-2020 End: 11-04-2022 take 1 tablet by mouth twice daily as needed Diclofenac Sodium 75 mg tablet,delayed release (DR/EC) Discontinued 75 mg PO TWICE A DAY as needed October 02, 2021 9:59am November 04, 2022 9:54am finasteride 5 mg oral tablet (20 sources) 5-alpha Reductase Inhibitor Start: 05-28-2014 End: 05-09-2024 take 1 tablet by mouth once daily Finasteride 5 mg tablet Discontinued 5 mg PO DAILY 90 3 May 12, 2023 10:56am May 09, 2024 9:49am PROSTATE 2 ml sodium hyaluronate 15 mg/ml prefilled syringe (11 sources) Start: 01-23-2022 End: 11-13-2022 Sodium Hyaluronate (Viscosup) (Orthovisc) 30 mg/2 mL syringe Discontinued 30 mg INTRAARTIC EVERY WEEK 12 January 23, 2022 12:00am November 13, 2022 9:53am Dispense 6 (six) syringes - 1 (one) syringe given intra-articular once weekly for each knee x 3 weeks. loratadine 10 mg disintegrating oral tablet (1 source) Start: 02-03-2023 End: 06-28-2023 take 1 tablet by mouth once daily as needed Loratadine (Claritin Reditabs) 10 mg tablet,disintegrat ing Discontinued 10 mg PO DAILY as needed for allergy symptoms February 03, 2023 12:00am June 28, 2023 10:43am Loratadine (Claritin Reditabs) 10 mg tablet,disintegrating (6 sources) Start: 02-03-2023 End: 06-28-2023 take 1 tablet by mouth once daily as needed Loratadine (Claritin Reditabs) 10 mg tablet,disintegrat ing Discontinued 10 mg PO DAILY as needed for allergy symptoms February 03, 2023 12:00am June 28, 2023 10:43am Start: 02-03-2023 End: 06-28-2023 take 1 tablet by mouth once daily Loratadine (Claritin Reditabs) 10 mg tablet,disintegrating Discontinued 10 MG PO DAILY February 03, 2023 12:00am June 28, 2023 10:43am Start: 02-03-2023 take 1 tablet by lisha th once daily Loratadine (Claritin Reditabs) 10 mg tablet,disintegrating Active 10 MG PO DAILY February 02, 2023 11:00pm Start: 02-03-2023 take 1 tablet by lisha th once daily Loratadine (Claritin Reditabs) 10 mg tablet,disintegrating Active 10 MG PO DAILY February 03, 2023 12:00am meloxicam 15 mg oral tablet (11 sources) Nonsteroidal Anti-inflammatory Drug Start: 12-27-2018 End: 04-11-2019 take 1 tablet by mouth once daily Meloxicam (Mobic) 15 mg tablet Discontinued 15 mg PO DAILY 90 1 December 27, 2018 12:00am April 11, 2019 9:58am methocarbamol 750 mg oral tablet (20 sources) Muscle Relaxant Start: 12-21-2022 End: 04-21-2023 take 1 tablet by mouth three times daily as needed for pain Methocarbamol 750 mg tablet Discontinued 750 mg PO THREE TIMES A DAY as needed for pain (scale score 4-6) 60 0 April 16, 2023 4:14pm April 21, 2023 2:17pm Start: 01-10-2020 End: 11-04-2022 take 1 tablet by mouth three times daily as needed Methocarbamol 750 mg tablet Discontinued 750 mg PO THREE TIMES A DAY as needed September 11, 2020 10:25am November 04, 2022 9:54am methylPREDNISolone 4 mg oral tablet (8 sources) Corticosteroid Start: 11-04-2022 End: 11-13-2022 take 1 tablet by mouth once daily Methylprednisolone (Medrol (Tai)) 4 mg tablets,dose pack Discontinued 4 mg PO DAILY 21 0 November 04, 2022 12:00am November 13, 2022 9:53am one tab PO as directed oxyCODONE hydrochloride 5 mg oral tablet (3 sources) Opioid Agonist Start: 05-18-2023 End: 06-02-2023 take 5-10 mg by mouth every four hours as needed for pain Oxycodone 5 mg tablet Discontinued 5 - 10 mg PO Q4H as needed for pain 60 7 0 May 18, 2023 June 02, 2023 10:30am Other acute postprocedural pain Other acute postprocedural pain pravastatin sodium 40 mg oral tablet (20 sources) HMG-CoA Reductase Inhibitor Start: 05-28-2014 End: 09-05-2024 take 1 tablet by mouth at bedtime Pravastatin 40 mg tablet Discontinued 40 mg PO AT BEDTIME 90 1 February 21, 2024 12:33pm September 05, 2024 11:49am CHOLESTEROL predniSONE 20 mg oral tablet (8 sources) Start: 11-04-2022 End: 01-21-2023 take 2 tablets by mouth once Prednisone 20 mg tablet Discontinued 40 mg PO ONCE 2 0 November 04, 2022 12:00am January 21, 2023 8:50am Start: 11-04-2022 End: 01-21-2023 take 40 mg by mouth once Prednisone Discontinued 40 M G PO ONCE 2 November 04, 2022 12:00am January 21, 2023 8:50am rivaroxaban 10 mg oral tablet (11 sources) Factor Xa Inhibitor Start: 10-30-2020 End: 11-13-2020 take 1 tablet by mouth once daily Rivaroxaban (Xarelto) 10 mg tablet Discontinued 10 mg PO DAILY 30 0 October 30, 2020 12:00am November 13, 2020 2:05pm Selenium 100 MCG tablet (2 sources) Start: 05-28-2014 End: 01-09-2020 take 1 tablet by mouth once daily Selenium 100 MCG tablet Discontinued 200 ug PO DAILY May 28, 2014 1:00am January 09, 2020 8:32am sildenafil 25 mg oral tablet (20 sources) Phosphodiesterase 5 Inhibitor Start: 11-23-2017 End: 01-09-2020 Sildenafil 25 mg tablet Discontinued 25 mg PO daily as needed for sexual activity 7 April 11, 2019 10:05am January 09, 2020 8:32am administer 30 minutes to 4 hours before activity Problems Active Problems Problem Classification Problem Date Documented Da te Episodic/Chronic Allergic reactions (11 sources) Environmental allergy; Translations: [Other allergy status, other than to drugs and biological substances] 12-28-2018 Episodic Cancer of prostate (1 source) Malignant neoplasm of prostate; Translations: [Malignant neoplasm of prostate] Onset: 11-10-2024 Chronic Chronic obstructive pulmonary disease and bronchiectasis (11 sources) Chronic bronchitis; Translations: [Unspecified chronic bronchitis] 12-03-2017 Chronic Disorders of lipid metabolism (14 sources) Hyperlipidemia; Translations: [Hyperlipidemia, unspecified] Onset: 05-09-2024 12-03-2017 Chronic Essential hypertension (14 sources) Hypertensive disorder; Translations: [Essential (primary) hypertension] Onset: 05-09-2024 12-03-2017 Chronic Comment on above: CONTROLLED WITH MED Hyperplasia of prostate (3 sources) Benign prostatic hyperplasia; Translations: [Benign prostatic hyperplasia without lower urinary tract symptoms] Onset: 05-09-2024 05-09-2024 Chronic Joint disorders and dislocations; trauma-related (13 sources) Derangement of left knee; Translations: [Unspecified internal derangement of left knee] 10-02-2021 Chronic Joint disorders and dislocations; trauma-related (20 sources) Tear of medial meniscus of knee; Translations: [Other tear of medial meniscus, current injury, unspecified knee, initial encounter] 02-12-2023 Episodic Nonspecific chest pain (11 sources) Chest pain on exertion; Translations: [Chest pain, unspecified] 01-10-2020 Episodic Osteoarthritis (20 sources) Primary gonarthrosis, bilateral; Translations: [Bilateral primary osteoarthritis of knee] Onset: 05-15-2024 Chronic Other aftercare (3 sources) Follow-up status; Translations: [Encounter for other orthopedic aftercare] 06-02-2023 Episodic Other aftercare (2 sources) Encounter for other orthopedic aftercare; Translations: [Unspecified orthopedic aftercare] 06-02-2023 Episodic Other and unspecified benign neoplasm (11 sources) Lipoma of back; Translations: [Benign lipomatous neoplasm of skin and subcutaneous tissue of trunk] 01-10-2020 Episodic Other circulatory disease (1 source) Stricture of artery; Translations: [Stricture of artery (HCC)] Onset: 03-20-2022 Chronic Other circulatory disease (9 sources) History of angioplasty; Translations: [Peripheral vascular angioplasty status] 03-31-2022 Episodic Comment on above: BILAT ARMS Other connective tissue disease (1 source) Artificial knee joint present; Translations: [Presence of left artificial knee joint] Chronic Other connective tissue disease (2 sources) History of total knee arthroplasty; Translations: [Presence of unspecified artificial knee joint] 05-15-2024 Chronic Other connective tissue disease (5 sources) Bursitis of shoulder; Translations: [Bursitis of left shoulder] 04-11-2019 Episodic Other connective tissue disease (6 sources) Bursitis of left shoulder; Translations: [Bursitis of left shoulder] 04-11-2019 Episodic Other ear and sense organ disorders (2 sources) Excessive cerumen in ear canal ; Translations: [Impacted cerumen, right ear] 02-14-2025 Episodic Other gastrointestinal disorders (11 sources) Dysphagia; Translations: [Dysphagia, unspecified] 01-10-2020 Episodic Other nervous system disorders (1 source) Brachial plexus disorders; Translations: [Thoracic outlet syndrome] Onset: 03-20-2022 Chronic Other nervous system disorders (3 sources) Acute postoperative pain; Translations: [Other acute postprocedural pain] 05-18-2023 Episodic Other non-traumatic joint disorders (20 sources) Pain in left knee; Translations: [Left knee pain] 10-02-2021 Episodic Other non-traumatic joint disorders (8 sources) Effusion of joint of left knee; Translations: [Effusion, left knee] 11-04-2022 Episodic Other non-traumatic joint disorders (6 sources) Effusion, left knee; Translations: [Effusion of joint, lower leg] 11-04-2022 Episodic Other non-traumatic joint disorders (1 source) Pain in right knee; Translations: [Right knee pain] 11-14-2020 Episodic Other skin disorders (2 sources) Seborrheic keratosis; Translations: [Other seborrheic keratosis] 05-09-2024 Episodic Phlebitis; thrombophlebitis and thromboembolism (11 sources) Deep venous thrombosis; Translations: [Acute embolism and thrombosis of unspecified deep veins of unspecified lower extremity] 10-30-2020 Episodic Residual codes; unclassified (11 sources) Sleep apnea; Translations: [Sleep apnea, unspecified] 02-10-2019 Chronic Spondylosis; intervertebral disc disorders; other back problems (20 sources) Degeneration of lumbar intervertebral disc; Translations: [Other intervertebral disc degeneration, lumbar region] 02-10-2019 Chronic Spondylosis; intervertebral disc disorders; other back problems (20 sources) Radiculopathy due to lumbar intervertebral disc disorder; Translations: [Intervertebral disc disorders with radiculopathy, lumbar region] 02-10-2019 Episodic Syncope (12 sources) Syncope and collapse; Translations: [Syncope and collapse] Onset: 01-18-2023 Episodic Unclassified (1 source) Unknown / UNK(Unknown) Onset: 09-09-2017 Past or Other Problems Problem Classification Problem Date Documented Da te Episodic/Chronic Deficiency and other anemia (1 source) Anemia, unspecified; Translations: [Anemia, unspecified] Onset: 05-09-2024 Episodic Other skin disorders (1 source) Other seborrheic keratosis; Translations: [Other seborrheic keratosis] Onset: 05-09-2024 Episodic Results Test Name Value Interpretation Reference Range Facility Internal Medicine Office Vis [facility] 02-14-2025 Internal Medicine Office Visit [facility] [address] [place] [id number] OFFICE VISIT Date of Service: 02/14/25 MR#: [id number] Acct: [id number] Name: JABIER ATWOOD Rep #: [id number] : 1945 Provider: MALIHA Leigh Age/Sex: 79/M Location: [facility] Status: Signed with Addenda ADDENDUM by TYSHAWN Wilson on 02/15/25 at 1457 Office Procedure Documentation entered by Karina Wilson MA 02/15/25 14:57: Cerumen Removal Procedure BMS Cerumen Removal Procedure Procedure performed by: Karina Wilson Method of removal: loop and irrigation From which ear canal was the cerumen removed: bilateral Amount of Cerumen: large Patient tolerated procedure: well Complications: none Additional Details: Initial inspection again shows complete occlusion on the right side and approximately 80+ percent occlusion on the left side. Irrigation was initially used to be able to soften the wax and dislodge wax from the canal. I was able to use a lighted curette to remove remaining wax on both the right and the left side. Right side was completely clear after irrigation and manual removal. There was a very small piece in the left side noted approximately at 10:00 in the canal. Again that this was a pretty small piece where the rest of the tympanic membrane was able to be viewed and therefore I do not feel that further irrigation is warranted in order to protect the drum. Again patient tolerated this with minimal discomfort. No complications observed. No signs of any rupture or damage to the tympanic membrane was noted. Date cc: * Signed Intake Vital Signs 05/09/24 08:18 02/14/25 13:07 Height 5 ft 10 in 5 ft 10 in Weight: 172 lb BMI 24.7 BP 132/78 H Blood Pressure Location Lt brachial Position Sitting Respiration 16 Pulse 81 Pulse Source Monitor Temp 97.7 F L Temp Source Temporal Pulse Oximetry (%) 95 Oxygen Delivery Method room air Intake Visit Reasons: ACUTE EAR CLOGGED 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 Is patient in pain?: No Allergies celecoxib (From Celebrex) Allergy (Verified 02/14/25 12:58) Other Quinolones Adverse Reaction (Verified 02/14/25 12:58) NEEDS FOLLOW-UP Medications ???Medication ???Instructions ???Recorded ???Confirmed ???Type oaidvjeu-jk-xjomd 300 mcg-K 60 1 tab PO DAILY [id number] 02/14/25 History mcg-lycop 600 mcg-lutein 300 mcg tablet (Centrum Silver Men) selenium 200 mcg capsule 200 mcg PO DAILY SUPPLEMENT 02/14/25 History montelukast 10 mg tablet 10 mg PO DAILY PRN ASTHMA 02/03/23 02/14/25 History methocarbamol 750 mg tablet 750 mg PO TID PRN pain (scale 11/2 07/2302/14/25 Rx score 4-6) #60 tabs amlodipine 5 mg-benazepril 10 mg 1 cap PO DAILY HTN #90 caps 02/14/25 Rx capsule finasteride 5 mg tablet 5 mg PO DAILY PROSTATE #90 tabs 02/14/25 Rx pravastatin 40 mg tablet 40 mg PO QHS CHOLESTEROL #90 tabs 09/05/24 02/14/25 Rx tamsulosin 0.4 mg capsule 0.4 mg PO QHS PROSTATE #90 caps 02/14/25 Rx omega 5-kva-idt-fish oil 60 mg-90 1 cap PO QDAY 02/14/25 02/14/25 H istory mg-500 mg capsule (Fish Oil) Have you fallen in the past year?: No Nurse's Note: Pt states that he started to have a decline in hearing especially in R ear for about a week or so now. Pt denies pain discharge, dizziness or itchingPt has not tried any otc remidies but did try a q-tip which made it worse. Pt states every few years he needs to get ears flushed. [facility] Medical History Wears glasses Alcohol use Arthritis Prostate disease High cholesterol Back pain Syncope History of ulceration CPAP (continuous positive airway pressure) dependence Former smoker History of pain when walking Normal Holter exam History of stress test Pain Sleep apnea Chronic bronchitis Hyperlipemia Hypertension Surgical History History of knee replacement Hx of LASIK Hx of colonoscopy Hx of angioplasty History of shoulder surgery Family History Father Heart disease Social History adopted: No household members: spouse number of children: 2 current occupational status: retired pets and animals: No sexually active: No Smoking Status: Former smoker Tobacco: How many years used: 25 alcohol intake: current alcohol intake frequency: holidays/special occasions only substance use type: does not use caffeine: Yes (2) Type: coffee what type of physical activity do you participate in: walking and weight training frequency: 3- (more content not included)... Normal [facility] PSA Total+%Freeon 11-07-2024 PSA, FREE 0.52 ng/mL Normal N/A [facility] Comment on above: Order Comment: SEND TO DR. NOLASCO WELL Result Comment: Lyndsay FARMER methodology. Performed By: #### L 3110.0500 #### [facility] [address] [place], [place], [id number] PSA, FREE % 7.0 Normal . [facility] Comment on above: Order Comment: SEND TO DR. NOLASCO PILAR Result Comment: The table below lists the probability of prostate cancer for men with non-suspicious TONY results and total PSA between 4 and 10 ng/mL, by patient age (Danny et al, WILLIE 1998, 279:1542). % Free PSA 50-64 yr 65-75 yr 0.00-10.00% 56% 55% 10.01-15.00% 24% 35% 15.01-20.00% 17% 23% 20.01-25.00% 10% 20% >25.00% 5% 9% Please note: Danny et al did not make specific recommendations regarding the use of percent free PSA for any other population of men. Performed at: [address] [id number] Senior Director Finance: Jovanni Lopez PhD, Phone: [phone] Performed By: #### L 3110.0500 #### [facility] [address] [facility] [place], [address] PSA, TOTAL ULTR 7.420 ng/mL Abnormal 0.000-4.000 [facility] Comment on above: Order Comment: SEND TO DR. NOLASCO PILAR Result Comment: Lyndsay FARMER methodology. According to the [employer], Serum PSA should decrease and remain at undetectable levels after radical prostatectomy. The AUA defines biochemical recurrence as an initial PSA value 0.200 ng/mL or greater followed by a subsequent confirmatory PSA value 0.200 ng/mL or greater. Values obtained with different assay methods or kits cannot be used interchangeably. Results cannot be interpreted as absolute evidence of the presence or absence of malignant disease. Performed By: #### L 3110.0500 #### [facility] [address] [facility] [place], [address] Serum or plasma free prostat e specific antigen (PSA)/total PSA mass ratioOrdered By: Godfrey Cifuentes on 11-06-2024 Free PSA/Total PSA [Mass fraction] 7.0 % . [facility] Comment on above: The table below list s the probability of prostate cancer formen with non-suspicious TONY results and total PSA between4 and 10 ng/mL, by patient age (Danny et al, WILLIE 1998,279:1542). % Free PSA 50-64 yr 65-75 yr 0.00-10.00% 56% 55% 10.01-15.00% 24% 35% 15.01-20.00% 17% 23% 20.01-25.00% 10% 20% >25.00% 5% 9%Please note: Danny et al did not make specific recommendations regarding the use of percent free PSA for any other population of men.Performed at: - [facility] [id number] Director: Jovanni Lopez PhD, Phone: [phone] Knee 3 Viewson 05-15-2024 Knee 3 Views [facility] [address] [place] [address] Knee 3 Views MR#: [id number] Acct: [id number] Name: JABIER ATWOOD Rep #: [id number] : 1945 M 78 From: Serjio Meek MD PCP: Dr. Godfrey Cifuentes, DO Status: DEP AMB Study: Knee 3 Views Date of Exam: 05/15/24 Exam# [id number] Ordering Dr: Jose Rodriguez DO [id number] STUDY: X-RAY - LEFT KNEE REASON FOR EXAM: Male, 78 years old. Pain. TECHNIQUE: 3 views of the left knee. COMPARISON: Left knee radiographs dated 06/28/2023. FINDINGS: Again seen is a left total knee arthroplasty with patellar resurfacing. The orthopedic hardware components are intact. 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 Again seen is an enthesophyte at the anterior-inferior patella. There is a small knee joint effusion. Normal proximal tibiofibular articulation. 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 Small knee joint effusion. Electronically Signed: Serjio Meek MD at 8:50 EST Reading Location ID and State: [address] [place] [address] , Service support , CC: Dr. Godfrey Cifuentes DO; Dr. Jose Rodriguez DO Supervisor Telephone Answering Service: Signed Normal [facility] Orthopedic Visit Reporton Orthopedic Visit Report [facility] [facility] [address] [place] [address] OFFICE VISIT Date of Service: 05/15/24 MR#: [id number] Acct: [id number] Name: JABIER ATWOOD Rep #: [id number] : 1945 Provider: Dr. Jose bird DO Age/Sex: 78/M Location: [facility] Status: Signed Intake Vital Signs 05/18/23 09:19 05/09/24 08:18 Height 5 ft 10 in 5 ft 10 in Weight: 173 lb BMI 24.8 BP 132/82 H Blood Pressure Location Lt brachial Position Sitting Respiration 16 Pulse 65 Pulse Source Monitor Temp 98.5 F Temp Source Temporal Pulse Oximetry (%) 95 Oxygen Delivery Method room air Intake Visit Reasons: LEFT KNEE Chief Complaint: 1 year post-op Accompanied by: Self Is patient in pain?: No Allergies celecoxib (From Celebrex) Allergy (Verified 05/15/24 08:40) Other Quinolones Adverse Reaction (Verified 05/15/24 08:40) NEEDS FOLLOW-UP Medications ???Medication ???Instructions ???Recorded ???Confirmed ???Type tuhvjdzb-xc-abdjn 300 mcg-K 60 1 tab PO DAILY [id number] 04/11/19 05/15/24 History mcg-lycop 600 mcg-lutein 300 mcg tablet (Centrum Silver Men) selenium 200 mcg capsule 200 mcg PO DAILY SUPPLEMENT 04/22/21 05/15/24 History montelukast 10 mg tablet 10 mg PO DAILY PRN ASTHMA 02/03/23 05/15/24 History methocarbamol 750 mg tablet 750 mg PO TID PRN pain (scale 04/21/23 05/15/24 Rx score 4-6) #60 tabs pravastatin 40 mg tablet 40 mg PO QHS CHOLESTEROL #90 tabs 02/21/24 05/15/24 Rx tamsulosin 0.4 mg capsule 0.4 mg PO QHS PROSTATE #90 caps 02/21/24 05/15/24 Rx amlodipine 5 mg-benazepril 10 mg 1 cap PO DAILY HTN #90 caps 05/09/24 05/15/24 Rx capsule finasteride 5 mg tablet 5 mg PO DAILY PROSTATE #90 tabs 05/09/24 05/15/24 Rx Have you fallen in the past year?: No PFSH Medical History Wears glasses Alcohol use Arthritis Prostate disease High cholesterol Back pain Syncope History of ulceration CPAP (continuous positive airway pressure) dependence Former smoker History of pain when walking Normal Holter exam History of stress test Pain Sleep apnea Chronic bronchitis Hyperlipemia Hypertension Surgical History History of knee replacement Hx of LASIK Hx of colonoscopy Hx of angioplasty History of shoulder surgery Family History Father Heart disease Social History adopted: No household members: spouse number of children: 2 current occupational status: retired pets and animals: No sexually active: No Smoking Status: Former smoker Tobacco: How many years used: 25 alcohol intake: current alcohol intake frequency: holidays/special occasions only substance use type: does not use caffeine: Yes (2) Type: coffee what type of physical activity do you participate in: walking and weight training frequency: 3-4 times per week do you feel safe at home: Yes HPI LEFT KNEE Details: This documentation accurately reflects the service provided and the decisions made by me, Dr. Jose Rodriguez, DO 05/15/24 0740. Part of today???s visit was documented by Taryn Hyde ATC, acting as scribe. JABIER ATWOOD is a 78 year old M here today for s/p left total knee arthroplasty CT guided Robotic Assisted DOS 05/18/2023. Patient states when he sits for a long period of time his knee will get stiff. He states if he stays active it does not bother him much. He is happy he had it done. Ortho Exam General General: Yes no acute distress and Yes well groomed Neurologic: Yes alert and Yes oriented x3 Psychologic: Yes reasonable and appropriate Right Knee Skin/Wound: No erythema, No ecchymosis and No swelling Homans Sign: No Knee ROM: Yes ROM-Extension -20 to 0 and Yes ROM-Flexion 0-140 (125) Examination: No Med jt line tenderness and No Lat jt line tenderness Stability: NML: Anterior Drawer, NML: Posterior Drawer, NML: Valgus 0, NML: Valgus 30, NML: Varus 0 and NML: Varus 30 Patella Translation: 1 KNEE: There is no swelling there is no ligament stability is good good range of motion without any crepitation neurovascular intact Left Knee Knee ROM: Yes ROM-Extension -20 to 0 and Yes ROM-Flexion 0-140 Patella Translation: 1 KNEE: no collateral instability Supplemental Info 05/15/2024 x-ray left knee: Status post press-fit total knee arthroplasty. Without any hardware loosening good interfaces 06/28/2023 x-ray left knee: Status post total knee arthroplasty with good interfaces and position 05/18/2023 left total knee arthroplasty: Dr. Rodriguez 11/11/2022 MRI left knee: Complex tear posterior horn medial meniscus full-thickness cartilage wear post (more content not included)... Normal [facility] CBC W/Diff, Automatedon 12-1 Absolute Lymph 2.08 X10 3/uL Normal 0.83-4.51 [facility] Comment on above: Performed By: #### L 100.0100, L500.4050, L500.4100, L501.9940 #### [facility] [address] [place], [address] Absolute Neut 4.3 X10 3/uL Normal 2.0-7.7 [facility] Comment on above: Performed By: #### L 100.0100, L500.4050, L500.4100, L501.9940 #### [facility] [address] [place], [address] Basophils/100 WBC (Bld) 0.4 % Normal 0-1 [facility] Comment on above: Performed By: #### L 100.0100, L500.4050, L500.4100, L501.9940 #### [facility] [address] [place], [address] Eosinophils/100 WBC (Bld) 2.5 % Normal 0-5 [facility] Comment on above: Performed By: #### L 100.0100, L500.4050, L500.4100, L501.9940 #### [facility] [address] [place], [address] Erythrocyte distribution width (RBC) [Ratio] 14.0 % Normal 11.6-14.6 [facility] Comment on above: Performed By: #### L 100.0100, L500.4050, L500.4100, L501.9940 #### [facility] [address] [place], [address] Hematocrit (Bld) [Volume fraction] 45.1 % Normal 40-54 [facility] Comment on above: Performed By: #### L 100.0100, L500.4050, L500.4100, L501.9940 #### [facility] [address] [place], [address] Hemoglobin (Bld) [Mass/Vol] 14.8 g/dL Normal 13.0-16.5 [facility] Comment on above: Performed By: #### L 100.0100, L500.4050, L500.4100, L501.9940 #### [facility] [address] [place], [address] IG% 0.300 Normal 0.0-0.9 [facility] Comment on above: Result Comment: IG% - Immature Granulocytes (promyelocytes, myelocytes and metamyelocytes) > 1% indicates that a LEFT SHIFT is Present. Performed By: #### L 100.0100, L500.4050, L500.4100, L501.9940 #### [facility] [address] [place], [address] Lymphocytes/100 WBC (Bld) 29.2 % Normal 19-41 [facility] Comment on above: Performed By: #### L 100.0100, L500.4050, L500.4100, L501.9940 #### [facility] [address] [place], [address] MCH (RBC) [Entitic mass] 28.8 pg Normal 27.0-32.0 [facility] Comment on above: Performed By: #### L 100.0100, L500.4050, L500.4100, L501.9940 #### [facility] [address] [place], [address] MCHC (RBC) [Mass/Vol] 32.8 g/dL Normal 32-36 [facility] Comment on above: Performed By: #### L 100.0100, L500.4050, L500.4100, L501.9940 #### [facility] [address] [place], [address] MCV (RBC) [Entitic vol] 87.9 fL Normal 80-94 [facility] Comment on above: Performed By: #### L 100.0100, L500.4050, L500.4100, L501.9940 #### [facility] [address] [place], [address] Monocytes/100 WBC (Bld) 7.7 % Normal 0-10 [facility] Comment on above: Performed By: #### L 100.0100, L500.4050, L500.4100, L501.9940 #### [facility] [address] [place], [address] Neutrophils/100 WBC (Bld) 59.9 % Normal 47-70 [facility] Comment on above: Performed By: #### L 100.0100, L500.4050, L500.4100, L501.9940 #### [facility] [address] [place], [address] Nucleated RBC (Bld) [#/Vol] 0 10*3/uL Normal 0-5 [facility] Comment on above: Performed By: #### L 100.0100, L500.4050, L500.4100, L501.9940 #### [facility] [address] [place], [address] Platelet mean volume (Bld) [Entitic vol] 9.4 fL Normal 6.2-12.0 [facility] Comment on above: Performed By: #### L 100.0100, L500.4050, L500.4100, L501.9940 #### [facility] [address] [place], [address] Platelets (Bld) [#/Vol] 304 10*3/uL Normal 150-450 [facility] Comment on above: Performed By: #### L 100.0100, L500.4050, L500.4100, L501.9940 #### [facility] [address] [place], [address] RBC (Bld) [#/Vol] 5.13 10*6/uL Normal 4.6-6.2 [facility] Comment on above: Performed By: #### L 100.0100, L500.4050, L500.4100, L501.9940 #### [facility] [address] [place], [address] RDW SD 45.2 fl High 35.1-43.9 [facility] Comment on above: Performed By: #### L 100.0100, L500.4050, L500.4100, L501.9940 #### [facility] [address] [place], [address] WBC (Bld) [#/Vol] 7.1 10*3/uL Normal 4.4-11.0 [facility] Comment on above: Performed By: #### L 100.0100, L500.4050, L500.4100, L501.9940 #### [facility] [address] [place], [address] Comprehensive Metabolic Prof [facility] 05-09-2024 Albumin [Mass/Vol] 3.7 g/dL Normal 3.2-5.0 [facility] Comment on above: Performed By: #### L 100.0100, L500.4050, L500.4100, L501.9940 #### [facility] [address] [place], [address] Albumin/Globulin [Mass ratio] 1.1 {ratio} Normal 0.9-2.4 [facility] Comment on above: Performed By: #### L 100.0100, L500.4050, L500.4100, L501.9940 #### [facility] [address] [place], [address] ALK P 119 U/L High 45-117 [facility] Comment on above: Performed By: #### L 100.0100, L500.4050, L500.4100, L501.9940 #### [facility] [address] [place], [address] ALT [Catalytic activity/Vol] 24 U/L Normal 16-61 [facility] Comment on above: Performed By: #### L 100.0100, L500.4050, L500.4100, L501.9940 #### [facility] [address] [place], [address] AST [Catalytic activity/Vol] 23 U/L Normal 15-37 [facility] Comment on above: Performed By: #### L 100.0100, L500.4050, L500.4100, L501.9940 #### [facility] [address] [place], [address] Bilirubin [Mass/Vol] 0.60 mg/dL Normal 0.20-1.00 [facility] Comment on above: Result Comment: For patients on eltrombopag therapy, use of Dimension [place] TBIL is not recommended. Performed By: #### L 100.0100, L500.4050, L500.4100, L501.9940 #### [facility] [address] [place], [address] BUN/CRE 16.0 RATIO Normal 10-20 [facility] Comment on above: Performed By: #### L 100.0100, L500.4050, L500.4100, L501.9940 #### [facility] [address] [place], [address] CA,Total 9.2 mg/dL Normal 8.5-10.1 [facility] Comment on above: Performed By: #### L 100.0100, L500.4050, L500.4100, L501.9940 #### [facility] [address] [place], [address] Chloride [Moles/Vol] 105 mmol/L Normal 98-107 [facility] Comment on above: Performed By: #### L 100.0100, L500.4050, L500.4100, L501.9940 #### [facility] [address] [place], [address] CO2 [Moles/Vol] 26.0 mmol/L Normal 21.0-32.0 [facility] Comment on above: Performed By: #### L 100.0100, L500.4050, L500.4100, L501.9940 #### [facility] [address] [place], [address] Creatinine [Mass/Vol] 0.94 mg/dL Normal 0.70-1.30 [facility] Comment on above: Result Comment: The validity of the calculated GFR GFRAA in patients over 70 years has not been determined. Clinical correlation is essential. Performed By: #### L 100.0100, L500.4050, L500.4100, L501.9940 #### [facility] [address] [place], [address] EST GFR - AA 100 mL/min Normal >60 [facility] Comment on above: Result Comment: Afri can Mexican GFR Calc Performed By: #### L 100.0100, L500.4050, L500.4100, L501.9940 #### [facility] [address] [place], [address] GAP 7 Normal 5-15 [facility] Comment on above: Performed By: #### L 100.0100, L500.4050, L500.4100, L501.9940 #### [facility] [address] [place], [address] GFR/1.73 sq M.predicted among non-blacks MDRD (S/P/Bld) [Vol rate/Area] 82 mL/min/{1.73_m2} Normal >60 [facility] Comment on above: Result Comment: Non- GFR Calc Performed By: #### L 100.0100, L500.4050, L500.4100, L501.9940 #### [facility] [address] [place], [address] Globulin (S) [Mass/Vol] 3.4 g/dL Normal 2.2-4.2 [facility] Comment on above: Performed By: #### L 100.0100, L500.4050, L500.4100, L501.9940 #### [facility] [address] [place], [address] Glucose [Mass/Vol] 92 mg/dL Normal 74-106 [facility] Comment on above: Performed By: #### L 100.0100, L500.4050, L500.4100, L501.9940 #### [facility] [address] [place], [address] Potassium [Moles/Vol] 4.4 mmol/L Normal 3.5-5.1 [facility] Comment on above: Performed By: #### L 100.0100, L500.4050, L500.4100, L501.9940 #### [facility] [address] [place], [address] Sodium [Moles/Vol] 138 mmol/L Normal 136-145 [facility] Comment on above: Performed By: #### L 100.0100, L500.4050, L500.4100, L501.9940 #### [facility] [address] [place], [address] T PROT 7.1 g/dL Normal 6.4-8.2 [facility] Comment on above: Performed By: #### L 100.0100, L500.4050, L500.4100, L501.9940 #### [facility] [address] [place], [address] Urea nitrogen [Mass/Vol] 15 mg/dL Normal 7-18 [facility] Comment on above: Performed By: #### L 100.0100, L500.4050, L500.4100, L501.9940 #### [facility] [address] [place], [address] Internal Medicine Office Vis itoyarelis 05-09-2024 Internal Medicine Office Visit [facility] [address] [place] [address] [place] [address] OFFICE VISIT Date of Service: 05/09/24 MR#: [id number] Acct: [id number] Name: JABIER ATWOOD Rep #: [id number] : 1945 Provider: Dr. Godfrey manjarrez, DO Age/Sex: 78/M Location: [facility] Status: Signed Intake Vital Signs 05/18/23 09:19 05/09/24 08:18 Height 5 ft 10 in 5 ft 10 in Weight: 173 lb BMI 24.8 BP 132/82 H Blood Pressure Location Lt brachial Position Sitting Respiration 16 Pulse 65 Pulse Source Monitor Temp 98.5 F Temp Source Temporal Pulse Oximetry (%) 95 Oxygen Delivery Method room air Intake Visit Reasons: WELLNESS Chief Complaint: Annual physical. 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 Is patient in pain?: No Allergies celecoxib (From Celebrex) Allergy (Verified 05/09/24 08:11) Other Quinolones Adverse Reaction (Verified 05/09/24 08:11) NEEDS FOLLOW-UP Medications ???Medication ???Instructions ???Recorded ???Confirmed ???Type valazsoh-ck-fbtnq 300 mcg-K 60 1 tab PO DAILY [id number] 04/11/19 05/09/24 History mcg-lycop 600 mcg-lutein 300 mcg tablet (Centrum Silver Men) selenium 200 mcg capsule 200 mcg PO DAILY SUPPLEMENT 04/22/21 05/09/24 History montelukast 10 mg tablet 10 mg PO DAILY PRN ASTHMA 02/03/23 05/09/24 History methocarbamol 750 mg tablet 750 mg PO TID PRN pain (scale 04/21/23 05/09/24 Rx score 4-6) #60 tabs pravastatin 40 mg tablet 40 mg PO QHS CHOLESTEROL #90 tabs 02/21/24 05/09/24 Rx tamsulosin 0.4 mg capsule 0.4 mg PO QHS PROSTATE #90 caps 02/21/24 05/09/24 Rx amlodipine 5 mg-benazepril 10 mg 1 cap PO DAILY HTN #90 caps 05/09/24 05/09/24 Rx capsule finasteride 5 mg tablet 5 mg PO DAILY PROSTATE #90 tabs 05/09/24 05/09/24 Rx Have you fallen in the past year?: No Nurse's Note: Needs amlodipine, finasteride refilled for 90 days. Is fasting if labs are needed. [facility] Medical History (Updated 05/09/24 @ 08:[address] Godfrey Cifuentes, DO) Wears glasses Alcohol use Arthritis Prostate disease High cholesterol Back pain Syncope History of ulceration CPAP (continuous positive airway pressure) dependence Former smoker History of pain when walking Normal Holter exam History of stress test Pain Sleep apnea Chronic bronchitis Hyperlipemia Hypertension Surgical History (Updated 05/09/24 @ 08:16 by Karina Wilson MA) History of knee replacement Hx of LASIK Hx of colonoscopy Hx of angioplasty History of shoulder surgery Family History Father Heart disease Social History (Updated 05/09/24 @ 08:17 by Karina Wilson MA) adopted: No household members: spouse number of children: 2 current occupational status: retired pets and animals: No sexually active: No Smoking Status: Former smoker Tobacco: How many years used: 25 alcohol intake: current alcohol intake frequency: holidays/special occasions only substance use type: does not use caffeine: Yes (2) Type: coffee what type of physical activity do you participate in: walking and weight training frequency: 3-4 times per week do you feel safe at home: Yes HPI HPI Chief Complaint: Annual physical. Details: JABIER ATWOOD, is a 78 M who presents to the office today for an annual physical exam. He works out Wednesdays and Fridays at the [employer]. His has some questions as to skin lesions on his back. He does get up 3 times at night to urinate but he has done that for years. Mentally he has noticed no change in his cognition. He is taking his medications faithfully. ROS Const Constitutional: No body ache, chills, excessive sweating, fatigue, fever(s), frequent falls, headache(s), snoring, weakness, sleep problems or change in appetite Eyes Eyes: No blurry vision, change in vision, eye pain or Light sensitivity ENT ENT: No abnormal hearing, ear or mastoid pain, tinnitus, nasal congestion, headache(s), neck pain or sore throat Resp Respiratory: No cough, shortness of breath, snoring or wheezing Cardio Cardiology: No chest pain at rest, chest pain with exertion, excessive sweating, shortness of breath, dyspnea on exertion, lightheadedness, orthopnea or palpitations Gastro GI: No abdominal pain, change in bowel habits, constipation, cramping, diarrhea, nausea/dyspepsia or vomiting Genitourinary Male: No burning urination, painful urination, urinary incontinence or urinary frequency Musc Musculoskeletal: No abnormal gait, joint pain, back pain, limited range of motion, neck pain or numbness Skin Skin: No dry skin, redness, lesions, itchy eyes, rash or wounds Neuro Neurology: No abnormal gait, abnormal hearing, weakness, frequent falls, headache(s), memory loss or numbness Psych Psychiatric: No anxiet (more content not included)... Normal [facility] Lipid Profileon 05-09-2024 Cholesterol [Mass/Vol] 169 mg/dL Normal 200 [facility] Comment on above: Result Comment: <200 mg/dL Desirable 200-240 mg/dL Borderline >240 mg/dL High Risk Performed By: #### L 100.0100, L500.4050, L500.4100, L501.9940 #### [facility] [address] [place], [place], [id number] Cholesterol in HDL [Mass/Vol] 63 mg/dL Normal [facility] Comment on above: Result Comment: The drugs N-Acetylcysteine and Metamizole may falsely depress this assay. Reference Range HDL <40 mg/dL Low HDL Cholesterol HDL >or= 60 mg/dL High HDL Cholesterol Performed By: #### L 100.0100, L500.4050, L500.4100, L501.9940 #### [facility] [address], [address] Cholesterol in LDL [Mass/Vol] 77 mg/dL Normal 0-130 [facility] Comment on above: Performed By: #### L 100.0100, L500.4050, L500.4100, L501.9940 #### [facility] [address] [place], [address] Cholesterol in VLDL [Mass/Vol] 29 mg/dL Normal 5-40 [facility] Comment on above: Performed By: #### L 100.0100, L500.4050, L500.4100, L501.9940 #### [facility] [address] [place], [address] Triglyceride [Mass/Vol] 147 mg/dL Normal [facility] Comment on above: Result Comment: The drugs N-Acetylcysteine and Metamizole may falsely depress this assay. Serum Triglycerides Reference Interval Normal <150 mg/dL Borderline high 150 - 199 mg/dL High 200 - 499 mg/dL Very High > or = 500 mg/dL Performed By: #### L 100.0100, L500.4050, L500.4100, L501.9940 #### [facility] [address] [place], [address] PSA,Total- Diagnosticon 12-1 PSA, DIAGNOSTIC 8.17 ng/mL High 0.0-4.0 [facility] Comment on above: Result Comment: This test was performed using the TPSA assay method for the [employer] chemistry system. Values obtained with different assay methods cannot be used interchangably. When changing PSA assays in the course of monitoring a patient, additional sequential testing should be carried out to confirm baseline values. Performed By: #### L 100.0100, L500.4050, L500.4100, L501.9940 #### [facility] [address] [place], [address] Basophil percentageOrdered B y: [place] on 08-31-2023 Basophil percentage 6.93 ng/mL 0.0-4.0 [facility] Comment on above: This test was perfor med using the TPSA assay method for the[employer] chemistry system. Values obtained with differentassay methods cannot be used interchangably.When changing PSA assays in the course of monitoring apatient, additional sequential testing should be carriedout to confirm baseline values. Glucose Glucometer (BldC) [M ass/Vol]Ordered By: Jose Rodriguez on 05-18-2023 Glucose [Mass/Vol] 102 mg/dL 74-106 [facility] Comment on above: MANAGEMENT OF PATIEN T CARE PER NURSING PROTOCOL Absolute lymphocyte countOrd ered By: Jose Rodriguez on 05-10-2023 Lymphocytes Auto (Unsp spec) [#/Vol] 2.25 10*3/uL 0.83-4.51 [facility] Basophil percentageOrdered B y: Jose Rodriguez on 05-10-2023 Basophils/100 WBC (Bld) 0.6 % 0-1 [facility] Chloride [Moles/Vol] 103 mmol/L 98-107 [facility] Eosinophils/100 WBC (Bld) 1.2 % 0-5 [facility] Glucose [Mass/Vol] 92 mg/dL 74-106 [facility] Neutrophils (Bld) [#/Vol] 5.1 10*3/uL 2.0-7.7 [facility] Neutrophils/100 WBC (Bld) 61.4 % 47-70 [facility] Potassium [Moles/Vol] 4.0 mmol/L 3.5-5.1 [facility] Sodium [Moles/Vol] 137 mmol/L 136-145 [facility] WBC (Bld) [#/Vol] 8.3 10*3/uL 4.4-11.0 [facility] Blood erythrocytes count (nu mber/volume)Ordered By: Jose Rodriguez on 05-10-2023 RBC (Bld) [#/Vol] 4.75 10*6/uL 4.6-6.2 [facility] Blood hemoglobin measurement (mass/volume)Ordered By: Jose Rodriguez on 05-10-2023 Hemoglobin (Bld) [Mass/Vol] 13.2 g/dL 13.0-16.5 [facility] Blood lymphocytes/100 leukoc ytesOrdered By: Jose Rodriguez on 05-10-2023 Lymphocytes/100 WBC (Bld) 27.2 % 19-41 [facility] Blood monocytes/100 leukocyt esOrdered By: Jose Rodriguez on 05-10-2023 Monocytes/100 WBC (Bld) 9.2 % 0-10 [facility] Blood platelet mean volumeOr dered By: Jose Rodriguez on 05-10-2023 Platelet mean volume (Bld) [Entitic vol] 8.5 fL 6.2-12.0 [facility] Determination of erythrocyte mean corpuscular volume (MCV)Ordered By: Jose Rodriguez on 05-10-2023 MCV (RBC) [Entitic vol] 88.4 fL 80-94 [facility] Hematocrit Auto (Bld) [Volum e fraction]Ordered By: Jose Rodriguez on 05-10-2023 Hematocrit (Bld) [Volume fraction] 42.0 % 40-54 [facility] - Chemistry and C hemistry - challengeOrdered By: Jose Rodriguez on 05-10-2023 CO2 [Moles/Vol] 26.0 mmol/L 21.0-32.0 [facility] Magnesium [Mass/Vol] 2.3 mg/dL 1.6-2.6 [facility] Urea nitrogen/Creatinine [Mass ratio] 18.6 mg/mg 10-20 [facility] - CoagulationOrde red By: Jose Rodriguez on 05-10-2023 aPTT Coag (Bld) [Time] 28.6 s 24.1-36.2 [facility] PT Coag (PPP) [Time] 11.8 s 11.7-14.9 [facility] - Hematology and Cell countsOrdered By: Jose Michael on 05-10-2023 Erythrocyte distribution width (RBC) [Entitic vol] 46.7 fL 35.1-43.9 [facility] Erythrocyte distribution width (RBC) [Ratio] 14.5 % 11.6-14.6 [facility] Immature granulocytes/100 WBC (Bld) 0.400 % 0.0-0.9 [facility] Comment on above: IG% - Immature Granu locytes (promyelocytes, myelocytes and metamyelocytes) > 1% indicates that a LEFT SHIFT is Present. MCH (RBC) [Entitic mass] 27.8 pg 27.0-32.0 [facility] Nucleated RBC/100 WBC (Bld) [Ratio] 0 % 0-5 [facility] MCHC Auto (RBC) [Mass/Vol]Or dered By: Jose Rodriguez on 05-10-2023 MCHC (RBC) [Mass/Vol] 31.4 g/dL 32-36 [facility] No Panel InformationOrdered By: Jose Rodriguez on 05-10-2023 Estimated GFR (MDRD) Amer 110 mL/min >60 [facility] Comment on above: GFR Calc Estimated GFR (MDRD) Non-Af Amer 91 mL/min >60 [facility] Comment on above: Non- GFR Calc Fructosamine 198 umol/L 0-285 [facility] Comment on above: Published reference interval for apparently healthysubjects between age 20 and 60 is 205 - 285 umol/L and in apoorly controlled diabetic population is 228 - 563 umol/Lwith a mean of 396 umol/L.Performed at: [facility] Director: Jovanni Lopez PhD, Phone: [phone] Nasal Screen MRSA/MSSA [facility] Platelets bldOrdered By: Warner Rodriguez on 05-10-2023 Platelets (Bld) [#/Vol] 398 10*3/uL 150-450 [facility] Serum or plasma calcium chiki urement (mass/volume)Ordered By: Jose Rodriguez on 05-10-2023 Calcium [Mass/Vol] 8.9 mg/dL 8.5-10.1 [facility] Serum or plasma creatinine m easurement (mass/volume)Ordered By: Jose Rodriguez on 05-10-2023 Creatinine [Mass/Vol] 0.86 mg/dL 0.70-1.30 [facility] Comment on above: The validity of the calculated GFR & GFRAA in patients over 70 years has not been determined. Clinical correlation is essential. Serum or plasma urea nitroge n measurement (mass/volume)Ordered By: Jose Rodriguez on 05-10-2023 Urea nitrogen [Mass/Vol] 16 mg/dL 7-18 [facility] Thin prep Papanicolaou smear with manual screeningOrdered By: Jose Rodriguez on 05-10-2023 Thin prep Papanicolaou smear with manual screening 8 5-15 [facility] Whole blood hemoglobin A1c/t otal hemoglobin ratio (mass fraction)Ordered By: Jose Rodriguez on 05-10-2023 HbA1c (Bld) [Mass fraction] 5.1 % 3.8-5.6 [facility] Comment on above: Normal < 5.7 % Predi abetic 5.7 - 6.4 % Diabetic >or= 6.5 % Please note range changes. Whole blood international no rmalized ratio (INR)Ordered By: Jose Rodriguez on 05-10-2023 INR Coag (Bld) [Relative time] 0.9 {INR} [facility] Basophil percentageOrdered B y: Godfrey Cifuentes on 05-04-2023 Bilirubin [Mass/Vol] 0.50 mg/dL 0.20-1.00 [facility] Comment on above: For patients on eltr ombopag therapy, use of Dimension [place] TBIL is not recommended. Chloride [Moles/Vol] 103 mmol/L 98-107 [facility] Cholesterol [Mass/Vol] 166 mg/dL <200 [facility] Comment on above: <200 mg/dL Desirable 200-240 mg/dL Borderline >240 mg/dL High Risk Glucose [Mass/Vol] 97 mg/dL 74-106 [facility] Potassium [Moles/Vol] 5.3 mmol/L 3.5-5.1 [facility] Protein [Mass/Vol] 7.4 g/dL 6.4-8.2 [facility] Sodium [Moles/Vol] 135 mmol/L 136-145 [facility] Triglyceride [Mass/Vol] 102 mg/dL <199 [facility] Comment on above: The drugs N-Acetylcy steine and Metamizole may falsely depress this assay.Serum Triglycerides Reference Interval Normal <150 mg/dL Borderline high 150 - 199 mg/dL High 200 - 499 mg/dL Very High > or = 500 mg/dL Laboratory - Chemistry and C hemistry - challengeOrdered By: Godfrey Cifuentes on 05-04-2023 ALP [Catalytic activity/Vol] 112 U/L 45-117 [facility] ALT [Catalytic activity/Vol] 26 U/L 16-61 [facility] CO2 [Moles/Vol] 27.0 mmol/L 21.0-32.0 [facility] Globulin (S) [Mass/Vol] 3.8 g/dL 2.2-4.2 [facility] Urea nitrogen/Creatinine [Mass ratio] 15.7 mg/mg 10-20 [facility] No Panel InformationOrdered By: Godfrey Cifuentes on 05-04-2023 Estimated GFR (MDRD) Amer 90 mL/min >60 [facility] Comment on above: GFR Calc Estimated GFR (MDRD) Non-Af Amer 75 mL/min >60 [facility] Comment on above: Non- GFR Calc No Panel InformationOrdered By: [facility] on 05-04-2023 Prostate Specific Antigen Total 7.99 ng/mL 0.0-4.0 [facility] Comment on above: This test was perfor med using the TPSA assay method for [employer] chemistry system. Values obtained with differentassay methods cannot be used interchangably.When changing PSA assays in the course of monitoring apatient, additional sequential testing should be carriedout to confirm baseline values. Serum or plasma albumin chiki urement (mass/volume)Ordered By: Godfrey Cifuentes on 05-04-2023 Albumin [Mass/Vol] 3.6 g/dL 3.2-5.0 [facility] Serum or plasma albumin/glob ulin mass ratioOrdered By: Godfrey Cifuentes on 05-04-2023 Albumin/Globulin [Mass ratio] 0.9 {ratio} 0.9-2.4 [facility] Serum or plasma calcium chiki urement (mass/volume)Ordered By: Godfrey Cifuentes on 05-04-2023 Calcium [Mass/Vol] 9.1 mg/dL 8.5-10.1 [facility] Serum or plasma cholesterol in HDL measurement (mass/volume)Ordered By: Godfrey Cifuentes on 05-04-2023 Cholesterol in HDL [Mass/Vol] 64 mg/dL >40 [facility] Comment on above: The drugs N-Acetylcy steine and Metamizole may falsely depress this assay. Reference Range HDL <40 mg/dL Low HDL Cholesterol HDL >or= 60 mg/dL High HDL Cholesterol Serum or plasma cholesterol in VLDL measurement (mass/volume)Ordered By: Godfrey Cifuentes on 05-04-2023 Cholesterol in VLDL [Mass/Vol] 20 mg/dL 5-40 [facility] Serum or plasma creatinine m easurement (mass/volume)Ordered By: Godfrey Cifuentes on 05-04-2023 Creatinine [Mass/Vol] 1.02 mg/dL 0.70-1.30 [facility] Comment on above: The validity of the calculated GFR & GFRAA in patients over 70 years has not been determined. Clinical correlation is essential. Serum or plasma low density lipoprotein (LDL) cholesterol measurement (mass/volume)Ordered By: Godfrey Cifuentes on 05-04-2023 Cholesterol in LDL [Mass/Vol] 82 mg/dL 0-130 [facility] Serum or plasma urea nitroge n measurement (mass/volume)Ordered By: Godfrey Cifuentes on 05-04-2023 Urea nitrogen [Mass/Vol] 16 mg/dL 7-18 [facility] Thin prep Papanicolaou smear with manual screeningOrdered By: Godfrey Cifuentes on 05-04-2023 Thin prep Papanicolaou smear with manual screening 29 U/L 15-37 [facility] Thin prep Papanicolaou smear with manual screening 5 5-15 [facility] .Auto Diffon 01-18-2023 Basophil, Absolute 0.1 10 3/mcL Normal 0.0-0.2 [facility] ([place]) Comment on above: Performed By: #### C KIRSTEN JIMÉNEZ GFR, ADIFF, MDW, BMP, ANEU #### [address] [address] Basophils/100 WBC (Bld) 0.8 % Normal 0.0-2.5 [facility] ([place]) Comment on above: Performed By: #### C KIRSTEN JIMÉNEZ GFRSALIMA MDW, BMP, ANEU #### [address] [address] Eosinophil, Absolute 0.1 10 3/mcL Normal 0.0-0.4 [facility] ([place] Comment on above: Performed By: #### C BC, TROPHS, GFR, ADIFF, MDW, BMP, ANEU #### [address] [address] Eosinophils/100 WBC (Bld) 1.3 % Normal 0.0-7.0 [facility] ([place]) Comment on above: Performed By: #### C BC, TROPHS, GFR, ADIFF, MDW, BMP, ANEU #### [address] [address] Lymphocyte, Absolute 1.0 10 3/mcL Normal 0.8-3.9 [facility] ([place] Comment on above: Performed By: #### C BC, TROPHS, GFR, ADIFF, MDW, BMP, ANEU #### [address] [address] Lymphocytes/100 WBC (Bld) 14.7 % Normal 10.0-50.0 [facility] ([place]) Comment on above: Performed By: #### C BC, TROPHS, GFR, ADIFF, MDW, BMP, ANEU #### [address] [address] Monocyte, Absolute 0.7 10 3/mcL Normal 0.2-1.0 [facility] ([place]) Comment on above: Performed By: #### C BC, TROPHS, GFR, ADIFF, MDW, BMP, ANEU #### [address] [address] Monocytes/100 WBC (Bld) 9.8 % Normal 1.7-13.0 [facility] ([place]) Comment on above: Performed By: #### C BC, TROPHS, GFR, ADIFF, MDW, BMP, ANEU #### [address] [address] Neutrophils/100 WBC (Bld) 73.4 % Normal 37.0-80.0 [facility] ([place]) Comment on above: Performed By: #### C BC, TROPHS, GFR, ADIFF, MDW, BMP, ANEU #### [address] [address] .GFRon 01-18-2023 GFR 66 ml/min/1.73sqm Normal [facility] ([place]) Comment on above: Result Comment: GFR Population mean for , Non- Americans Ages 20-29 = 116 mL/min/1.73 sq.m. Ages 30-39 = 107 mL/min/1.73 sq.m. Ages 40-49 = 99 mL/min/1.73 sq.m. Ages 50-59 = 93 mL/min/1.73 sq.m. Ages 60-69 = 85 mL/min/1.73 sq.m. Ages 70+ = 75 mL/min/1.73 sq.m. Chronic Kidney Disease: Less than 60 mL/min/1.73 square meters End Stage Renal Disease: Less than 15 mL/min/1.73 square meters Performed By: #### C BC, TROPHS, GFR, ADJUAN JOSÉ, LAMIN, BMP, ANEU #### Don [address] [address] GFR Non- 54 ml/min/1.73sqm Normal [facility] ([place]) Comment on above: Result Comment: GFR Population mean for , Non- Americans Ages 20-29 = 116 mL/min/1.73 sq.m. Ages 30-39 = 107 mL/min/1.73 sq.m. Ages 40-49 = 99 mL/min/1.73 sq.m. Ages 50-59 = 93 mL/min/1.73 sq.m. Ages 60-69 = 85 mL/min/1.73 sq.m. Ages 70+ = 75 mL/min/1.73 sq.m. Chronic Kidney Disease: Less than 60 mL/min/1.73 square meters End Stage Renal Disease: Less than 15 mL/min/1.73 square meters Performed By: #### C BC, TROPHS, GFR, ADJUAN JOSÉ, W, BMP, ANEU #### [address] [address] .MDWon 01-18-2023 Monocyte Distribution Width 17.94 Normal 0.00-20.00 [facility] ([place]) Comment on above: Result Comment: For ED adult patients suspected of sepsis, MDW<=20.0 does not rule out sepsis or risk of sepsis Performed By: #### C BC, TROPHS, GFR, ADIFF, MDW, BMP, ANEU #### [address] [address] .NEUABSon 01-18-2023 Neutrophil, Absolute 5.0 10 3/mcL Normal 2.9-6.2 [facility] [place] Comment on above: Performed By: #### C BC, TROPHS, GFR, ADIFF, MDW, BMP, ANEU #### [address] [address] BMPon 01-18-2023 BUN/Creatinine Ratio 13 ratio Normal 7-27 [facility] ([place]) Comment on above: Performed By: #### C BC, TROPHS, GFR, ADIFF, MDW, BMP, ANEU #### [address] [address] Calcium [Mass/Vol] 8.9 mg/dL Normal 8.4-10.2 [facility] ([place]) Comment on above: Performed By: #### C BC, TROPHS, GFR, ADIFF, MDW, BMP, ANEU #### [address] [address] Chloride [Moles/Vol] 102 mmol/L Normal 98-107 [facility] ([place]) Comment on above: Performed By: #### C BC, TROPHS, GFR, ADIFF, MDW, BMP, ANEU #### [address] [address] CO2 [Moles/Vol] 29 mmol/L Normal 23-31 [facility] ([place]) Comment on above: Performed By: #### C BC, TROPHS, GFR, ADIFF, MDW, BMP, ANEU #### [place] [address] Creatinine [Mass/Vol] 1.28 mg/dL Normal 0.70-1.30 [facility] ([place]) Comment on above: Performed By: #### C BC, TROPHS, GFR, ADIFF, MDW, BMP, ANEU #### [address] [address] Electrolyte Balance 8.0 mEq/L Normal 4.0-15.0 [facility] ([place]) Comment on above: Performed By: #### C BC, TROPHS, GFR, ADIFF, MDW, BMP, ANEU #### [address] [address] Glucose [Mass/Vol] 113 mg/dL High 83-110 [facility] ([place]) Comment on above: Performed By: #### C BC, TROPHS, GFR, ADIFF, MDW, BMP, ANEU #### [address] [address] Potassium [Moles/Vol] 4.3 mmol/L Normal 3.5-5.1 [facility] ([place]) Comment on above: Performed By: #### C BC, TROPHS, GFR, ADIFF, MDW, BMP, ANEU #### [address] [address] Sodium [Moles/Vol] 139 mmol/L Normal 136-145 [facility] ([place]) Comment on above: Performed By: #### C BC, TROPHS, GFR, ADIFF, MDW, BMP, ANEU #### [address] [address] Urea nitrogen [Mass/Vol] 17 mg/dL Normal 7-18 [facility] ([place]) Comment on above: Performed By: #### C BC, TROPHS, GFR, ADIFF, MDW, BMP, ANEU #### [address] [address] CBCon 01-18-2023 Erythrocyte distribution width (RBC) [Ratio] 15.2 % High 11.5-14.5 [facility] ([place]) Comment on above: Performed By: #### C BC, TROPHS, GFR, ADIFF, MDW, BMP, ANEU #### [address] [address] Hematocrit (Bld) [Volume fraction] 39.7 % Low 42.0-52.0 [facility] ([place]) Comment on above: Performed By: #### C BC, TROPHS, GFR, ADIFF, MDW, BMP, ANEU #### [place] [address] Hgb 13.4 G/dL Low 14.0-18.0 [facility] ([place]) Comment on above: Performed By: #### C BC, TROPHS, GFR, ADIFF, MDW, BMP, ANEU #### [place] [address] MCH (RBC) [Entitic mass] 29.0 pg Normal 27.0-31.2 [facility] ([place]) Comment on above: Performed By: #### C BC, TROPHS, GFR, ADIFF, MDW, BMP, ANEU #### [place] [address] MCHC 33.6 G/dL Normal 31.8-35.4 [facility] ([place]) Comment on above: Performed By: #### C BC, TROPHS, GFR, ADIFF, MDW, BMP, ANEU #### [place] [address] MCV (RBC) [Entitic vol] 86.2 fL Normal 80.0-94.0 [facility] ([place]) Comment on above: Performed By: #### C BC, TROPHS, GFR, ADIFF, MDW, BMP, ANEU #### [place] [address] Platelet 320 10 3/mcL Normal 130-400 [facility] ([place]) Comment on above: Performed By: #### C BC, TROPHS, GFR, ADIFF, MDW, BMP, ANEU #### [place] [address] Platelet mean volume (Bld) [Entitic vol] 6.3 fL Low 7.4-10.4 [facility] ([place]) Comment on above: Performed By: #### C BC, TROPHS, GFR, ADIFF, MDW, BMP, ANEU #### [place] [address] RBC 4.61 10 6/mcL Normal 4.04-6.13 [facility] ([place]) Comment on above: Performed By: #### C KIRSTEN JIMÉNEZ GFR, ADIFF, MDW, DEBORAH, ANEU #### [address] [place], [place] [address] WBC 6.8 10 3/mcL Normal 4.6-10.8 [facility] ([place]) Comment on above: Performed By: #### C KIRSTEN JIMÉNEZ GFR, ADIFF, MDW, DEBORAH, ANEU #### [place] [address] [place], [place] [address] CT HEAD OR BRAIN W/O CONTRAS Ton 01-18-2023 CT HEAD OR BRAIN W/O CONTRAST ORIGINAL EXAMINATION: CT OF THE HEAD WITHOUT CONTRAST 01/18/2023 8:08 am TECHNIQUE: CT of the head was performed without the administration of intravenous contrast. Automated exposure control, iterative reconstruction, and/or weight based adjustment of the mA/kV was utilized to reduce the radiation dose to as low as reasonably achievable. COMPARISON: None. HISTORY: ORDERING SYSTEM PROVIDED HISTORY: Reason for Exam: syncopal episode, fell from a seated position, hit head this morning after exercise. Pt reports having a similar dizzy spell about 1 month ago. syncopal episode, fell, hit head FINDINGS: BRAIN/VENTRICLES: No evidence of acute intracranial hemorrhage, mass effect, midline shift, hydrocephalus, or acute large territorial infarction is identified. Scattered white matter hypodensities are nonspecific but statistically most consistent with mild chronic microvascular angiopathy. The ventricles are mildly enlarged with commensurate enlargement of the sulci most consistent with mild age-related volume loss. Carotid siphon calcifications are present. ORBITS: The visualized portion of the orbits demonstrate no acute abnormality. Bilateral ocular lens implants are present. SINUSES: The visualized paranasal sinuses and mastoid air cells are essentially clear. SOFT TISSUES/SKULL: No acute abnormality of the visualized skull or soft tissues. IMPRESSION: No acute intracranial hemorrhage. Mild chronic microvascular angiopathy and loss. Interpreted by: Charles Horton DO Preliminary Report By: Charles Horton DO Electronically signed By Charles Horton DO Dictated Date: 01/18/2023 8:17:31 AM Prelim Date: 01/18/2023 8:22:40 AM Sign Date: 01/18/2023 8:22:40 AM Ordering Provider: JOSE DIA [facility] ([place]) LABORATORYOrdered By: SYSTEM SYSTEM on 01-18-2023 Basophil, Absolute 0.1 103/mcL Invalid Interpretation Code 0.0 - 0.2 10^3/mcL AO Workflow SS Basophils/100 WBC (Bld) 0.8 % Invalid Interpretation Code 0.0 - 2.5 % AO Workflow SS Calcium [Mass/Vol] 8.9 mg/dL Invalid Interpretation Code 8.4 - 10.2 mg/dL AO ADM SS Chloride [Moles/Vol] 102 mmol/L Invalid Interpretation Code 98 - 107 mmol/L AO ADM SS CO2 [Moles/Vol] 29 mmol/L Invalid Interpretation Code 23 - 31 mmol/L AO ADM SS Creatinine [Mass/Vol] 1.28 mg/dL Invalid Interpretation Code 0.70 - 1.30 mg/dL AO ADM SS Electrolyte Balance 8.0 mEq/L Invalid Interpretation Code 4.0 - 15.0 mEq/L AO ADM SS Eosinophil, Absolute 0.1 103/mcL Invalid Interpretation Code 0.0 - 0.4 10^3/mcL AO Workflow SS Eosinophils/100 WBC (Bld) 1.3 % Invalid Interpretation Code 0.0 - 7.0 % AO Workflow SS Erythrocyte distribution width (RBC) [Ratio] 15.2 % Invalid Interpretation Code 11.5 - 14.5 % AO Workflow SS GFR/1.73 sq M.predicted among blacks MDRD (S/P/Bld) [Vol rate/Area] 66 ml/min/1.73sqm Invalid Interpretation Code AO Chemistry S Comment on above: Interpretive Data: GFR Population mean for , Non- Americans Ages 20-29 = 116 mL/min/1.73 sq.m. Ages 30-39 = 107 mL/min/1.73 sq.m. Ages 40-49 = 99 mL/min/1.73 sq.m. Ages 50-59 = 93 mL/min/1.73 sq.m. Ages 60-69 = 85 mL/min/1.73 sq.m. Ages 70+ = 75 mL/min/1.73 sq.m. Chronic Kidney Disease: Less than 60 mL/min/1.73 square meters End Stage Renal Disease: Less than 15 mL/min/1.73 square meters GFR/1.73 sq M.predicted among non-blacks MDRD (S/P/Bld) [Vol rate/Area] 54 ml/min/1.73sqm Invalid Interpretation Code AO Chemistry S Comment on above: Interpretive Data: GFR Population mean for , Non- Americans Ages 20-29 = 116 mL/min/1.73 sq.m. Ages 30-39 = 107 mL/min/1.73 sq.m. Ages 40-49 = 99 mL/min/1.73 sq.m. Ages 50-59 = 93 mL/min/1.73 sq.m. Ages 60-69 = 85 mL/min/1.73 sq.m. Ages 70+ = 75 mL/min/1.73 sq.m. Chronic Kidney Disease: Less than 60 mL/min/1.73 square meters End Stage Renal Disease: Less than 15 mL/min/1.73 square meters Glucose [Mass/Vol] 113 mg/dL Invalid Interpretation Code 83 - 110 mg/dL AO ADM SS Hematocrit (Bld) [Volume fraction] 39.7 % Invalid Interpretation Code 42.0 - 52.0 % AO Workflow SS Hemoglobin (Bld) [Mass/Vol] 13.4 G/dL Invalid Interpretation Code 14.0 - 18.0 G/dL AO Workflow SS Lymphocyte, Absolute 1.0 103/mcL Invalid Interpretation Code 0.8 - 3.9 10^3/mcL AO Workflow SS Lymphocytes/100 WBC (Bld) 14.7 % Invalid Interpretation Code 10.0 - 50.0 % AO Workflow SS MCH (RBC) [Entitic mass] 29.0 pg Invalid Interpretation Code 27.0 - 31.2 pg AO Workflow SS MCHC 33.6 G/dL Invalid Interpretation Code 31.8 - 35.4 G/dL AO Workflow SS MCV (RBC) [Entitic vol] 86.2 fL Invalid Interpretation Code 80.0 - 94.0 fL AO Workflow SS Monocyte distribution width Auto (Bld) [Entitic vol] 17.94 1 Invalid Interpretation Code 0.00 - 20.00 AO Workflow SS Comment on above: Result Comment: For ED adult patients suspected of sepsis, MDW<=20.0 does not rule out sepsis or risk of sepsis Monocyte, Absolute 0.7 103/mcL Invalid Interpretation Code 0.2 - 1.0 10^3/mcL AO Workflow SS Monocytes/100 WBC (Bld) 9.8 % Invalid Interpretation Code 1.7 - 13.0 % AO Workflow SS Neutrophil, Absolute 5.0 103/mcL Invalid Interpretation Code 2.9 - 6.2 10^3/mcL AO Workflow SS Neutrophils/100 WBC (Bld) 73.4 % Invalid Interpretation Code 37.0 - 80.0 % AO Workflow SS Platelet mean volume (Bld) [Entitic vol] 6.3 fL Invalid Interpretation Code 7.4 - 10.4 fL AO Workflow SS Platelets (Bld) [#/Vol] 320 103/mcL Invalid Interpretation Code 130 - 400 10^3/mcL AO Workflow SS Potassium [Moles/Vol] 4.3 mmol/L Invalid Interpretation Code 3.5 - 5.1 mmol/L AO ADM SS RBC (Bld) [#/Vol] 4.61 106/mcL Invalid Interpretation Code 4.04 - 6.13 10^6/mcL AO Workflow SS Sodium [Moles/Vol] 139 mmol/L Invalid Interpretation Code 136 - 145 mmol/L AO ADM SS Troponin I.cardiac DL <= 0.01 ng/mL [Mass/Vol] 6.2 ng/L Invalid Interpretation Code 0.0 - 76.2 ng/L AO ADM SS Urea nitrogen [Mass/Vol] 17 mg/dL Invalid Interpretation Code 7 - 18 mg/dL AO ADM SS Urea nitrogen/Creatinine [Mass ratio] 13 ratio Invalid Interpretation Code 7 - 27 ratio AO ADM SS WBC (Bld) [#/Vol] 6.8 103/mcL Invalid Interpretation Code 4.6 - 10.8 10^3/mcL AO Workflow SS TROPHSon 01-18-2023 Troponin I High Sensitivity 6.2 ng/L Normal 0.0-76.2 [facility] ([place]) Comment on above: Performed By: #### C BC, TROPHS, GFR, ADJUAN JOSÉ, MDW, BMP, ANEU #### [place] [id number] No Panel InformationOrdered By: JAN Horton on 09-01-2022 Prostate Specific Antigen Total 5.81 ng/mL 0.0-4.0 [facility] Comment on above: This test was perfor med using the TPSA assay method for the[facility] chemistry system. Values obtained with differentassay methods cannot be used interchangably.When changing PSA assays in the course of monitoring apatient, additional sequential testing should be carriedout to confirm baseline values. Basic metabolic 2000 panelon 03-20-2022 Anion gap [Moles/Vol] 8 mmol/L Normal 5-16 [facility] Comment on above: Order Comment: Speci men Type: BLOOD SPECIMEN Ordering Facility: [facility] Address: [address] [place] [address] Performed By: #### 2 4321-2 #### [facility] CLIA [id number] [address] [place] [address] [place] Calcium [Mass/Vol] 8.9 mg/dL Normal 8.5-10.5 [facility] Comment on above: Order Comment: Speci men Type: BLOOD SPECIMEN Ordering Facility: [facility] Address: [address] [place] [address] Performed By: #### 2 4321-2 #### [facility] CLIA [id number] [address] [place] [address] [place] Chloride [Moles/Vol] 103 mmol/L Normal 98-107 [facility] Comment on above: Order Comment: Speci men Type: BLOOD SPECIMEN Ordering Facility: [facility] Address: [address] [place] [address] Performed By: #### 2 4321-2 #### [facility] CLIA [id number] [address] [place] [address] [place] CO2 [Moles/Vol] 29 mmol/L Normal 21-32 [facility] Comment on above: Order Comment: Speci men Type: BLOOD SPECIMEN Ordering Facility: [facility] Address: [address] [place] [address] Performed By: #### 2 4321-2 #### [facility] CLIA [id number] [address] [place] [address] [place] Creatinine [Mass/Vol] 0.98 mg/dL Normal 0.50-1.40 [facility] Comment on above: Order Comment: Speci men Type: BLOOD SPECIMEN Ordering Facility: [facility] Address: [address] [place] [address] Result Comment: Lena ents receiving either N-Acetylcysteine (NAC) or Metamizole prior to venipuncture, may have falsely depressed results. Performed By: #### 2 4321-2 #### [facility] CLIA [id number] [address] [place] [address] [place] ESTIMATED GLOMERULAR FILTRATION RATE 79 mL/min/1.73m??? Normal >=60 [facility] Comment on above: Order Comment: Amie casanova Type: BLOOD SPECIMEN Ordering Facility: [facility] Address: [address] [place] [address] Result Comment: Tiffany mated Glomerular Filtration Rate (eGFR) is calculated using the 2020 CKD-EPI creatinine equation. This equation utilizes serum creatinine, sex, and age as parameters. The creatinine assay has traceable calibration to isotope dilution-mass spectrometry. Refer to KDIGO guidelines for clinical interpretation. In patients with unstable renal function, e.g. those with acute kidney injury, the eGFR may not accurately reflect actual GFR. Performed By: #### 2 4321-2 #### [facility] CLIA [id number] [address] [place] [address] [place] Glucose [Mass/Vol] 97 mg/dL Normal 70-100 [facility] Comment on above: Order Comment: Amie casanova Type: BLOOD SPECIMEN Ordering Facility: [facility] Address: [address] [place] [address] Result Comment: The [place] Diabetes Association (ADA) provides guidance for cutoff values for fasting glucose and random glucose. The ADA defines fasting as no caloric intake for at least 8 hours. Fasting plasma glucose results between 100 to 125 mg/dL indicate increased risk for diabetes (prediabetes). Fasting plasma glucose results greater than or equal to 126 mg/dL meet the criteria for diagnosis of diabetes. In the absence of unequivocal hyperglycemia, results should be confirmed by repeat testing. In a patient with classic symptoms of hyperglycemia or hyperglycemic crisis, random plasma glucose results greater than or equal to 200 mg/dL meet the criteria for diagnosis of diabetes. Reference: Standards of Medical Care in Diabetes 2016, [place] Diabetes Association. Diabetes Care. 2016.39(Suppl 1). Results may be falsely elevated after the administration of Sulfapyridine. Results may be falsely depressed after the administration of Sulfasalazine. Performed By: #### 2 4321-2 #### [facility] CLIA [id number] [address] [place] [address] [place] Potassium [Moles/Vol] 4.1 mmol/L Normal 3.5-5.1 [facility] Comment on above: Order Comment: Speci men Type: BLOOD SPECIMEN Ordering Facility: [facility] Address: [address] [place] [address] Result Comment: Slig ht Hemolysis, Result may be affected. Performed By: #### 2 4321-2 #### [facility] CLIA [id number] [address] [place] [address] [place] Sodium [Moles/Vol] 140 mmol/L Normal 136-145 [facility] Comment on above: Order Comment: Speci men Type: BLOOD SPECIMEN Ordering Facility: [facility] Address: [address] [place] [address] Performed By: #### 2 4321-2 #### [facility] CLIA [id number] [address] [place] [address] [place] Urea nitrogen [Mass/Vol] 22 mg/dL Normal 7-26 [facility] Comment on above: Order Comment: Speci men Type: BLOOD SPECIMEN Ordering Facility: [facility] Address: [address] [place] [address] Performed By: #### 2 4321-2 #### [facility] CLIA [id number] [address] [place] [address] [place] CBC panel Auto (Bld)on 03-20 Erythrocyte distribution width (RBC) [Ratio] 14.1 % Normal 11.5-15.0 [facility] Comment on above: Order Comment: Speci men Type: BLOOD SPECIMEN Ordering Facility: [facility] Address: [address] [place] [address] Performed By: #### 5 8410-2 #### [facility] CLIA [id number] [address] [place] [address] [place] Hematocrit (Bld) [Volume fraction] 38.8 % Low 39.0-51.0 [facility] Comment on above: Order Comment: Speci men Type: BLOOD SPECIMEN Ordering Facility: [facility] Address: [address] [place] [address] Performed By: #### 5 8410-2 #### [facility] CLIA [id number] [address] [place] [address] [place] Hemoglobin (Bld) [Mass/Vol] 12.8 g/dL Low 13.0-17.0 [facility] Comment on above: Order Comment: Speci men Type: BLOOD SPECIMEN Ordering Facility: [facility] Address: [address] [place] [address] Performed By: #### 5 8410-2 #### [facility] [place] [id number] [address] [place] [address] [place] MCH (RBC) [Entitic mass] 28.0 pg Normal 26.0-34.0 [facility] Comment on above: Order Comment: Speci men Type: BLOOD SPECIMEN Ordering Facility: [facility] Address: [address] [place] [address] Performed By: #### 5 8410-2 #### [facility] CLIA [id number] [address] [place] [address] [place] MCHC (RBC) [Mass/Vol] 33.0 g/dL Normal 30.5-36.0 [facility] Comment on above: Order Comment: Speci men Type: BLOOD SPECIMEN Ordering Facility: [facility] Address: [address] [place] [address] Performed By: #### 5 8410-2 #### [facility] CLIA [id number] [address] [place] [address] [place] MCV (RBC) [Entitic vol] 84.9 fL Normal 80.0-100.0 [facility] Comment on above: Order Comment: Speci men Type: BLOOD SPECIMEN Ordering Facility: [facility] Address: [address] [place], [place] [address] Performed By: #### 5 8410-2 #### [facility] CLIA [id number] [address] [place] [address] [place] Nucleated RBC (Bld) [#/Vol] 10*3/uL Normal <0.01 [facility] Comment on above: Order Comment: Speci men Type: BLOOD SPECIMEN Ordering Facility: [facility] Address: [address] [place], [place] [address] Performed By: #### 5 8410-2 #### [facility] CLIA [id number] [address] [place] [address] [place] Platelet mean volume (Bld) [Entitic vol] 8.3 fL Low 9.0-12.7 [facility] Comment on above: Order Comment: Speci men Type: BLOOD SPECIMEN Ordering Facility: [facility] Address: [address] [place] [address] Performed By: #### 5 8410-2 #### [facility] CLIA [id number] [address] [place] [address] [place] Platelets (Bld) [#/Vol] 312 10*3/uL Normal 150-400 [facility] Comment on above: Order Comment: Speci men Type: BLOOD SPECIMEN Ordering Facility: [facility] Address: [address] [place], [place] [address] Performed By: #### 5 8410-2 #### [facility] CLIA [id number] [address] [place] [address] [place] RBC (Bld) [#/Vol] 4.57 10*6/uL Normal 4.20-6.00 [facility] Comment on above: Order Comment: Speci men Type: BLOOD SPECIMEN Ordering Facility: [facility] Address: [address] [place], [place] [address] Performed By: #### 5 8410-2 #### [facility] CLIA [id number] [address] [place], [place] [address], [place] [address] [place] WBC (Bld) [#/Vol] 8.22 10*3/uL Normal 3.70-11.00 [facility] Comment on above: Order Comment: Speci men Type: BLOOD SPECIMEN Ordering Facility: [facility] Address: [address] [place], [place] [address] [place] [address] Performed By: #### 5 8410-2 #### [facility] CLIA [id number] [facility] [place] [id number] [facility] ECG COMPLETEon 03-20-2022 ECG COMPLETE Ventricular Rate : 5 5 BPM Atrial Rate : 55 BPM P-R Interval : 170 ms QRS Duration : 102 ms Q-T Interval : 440 ms QTC Calculation(Bazett) : 420 ms Calculated P Humphreys : 20 degrees Calculated R Humphreys : 5 degrees Calculated T Humphreys : 29 degrees Sinus bradycardia with Premature atrial complexes Otherwise normal ECG When compared with ECG of 13-DEC-2020 06:58, Premature atrial complexes are now Present Confirmed by FAWN LEGGETT MD ([id number]) on 03/29/2022 11:34:58 PM NAME : JABIER ATWOOD PID : [id number] : 1945 Gender : Male Race : ORD : [id number] Procedure Date : Mar 20 2022 06:31:43 Edit Date : Mar 29 2022 23:34:59 Diagnosis: Sinus bradycardia with Premature atrial complexes Otherwise normal ECG When compared with ECG of 13-DEC-2020 06:58, Premature atrial complexes are now Present Confirmed by FAWN LEGGETT MD ([id number]) on 03/29/2022 11:34:58 PM Test Reason : STAT Location : 23 : SURG MROR~ Overread By : FAWN LEGGETT MD Edited By : FAWN LEGGETT MD Referred By : , Acquired by : DEBO MACIAS [facility] HISTORY PHYSICALon HISTORY PHYSICAL HNO ID: [id number] Author: Janay Bush MD Service: Vascular Surgery Author Type: Physician Type: HANDP Filed: 03/20/2022 7:39 AM Note Text: See HANDP, no change Plan left arm angiogram Janay Bush MD [facility] OPERATIVE NOon 03-20-2022 OPERATIVE NO HNO ID: [id number] Author: Janay Bush MD Service: Vascular Surgery Author Type: Physician Type: Operative Report Filed: 03/20/2022 8:54 AM Note Text: OPERATIVE/PROCEDURE REPORT LOG ID: [id number] SURGERY/PROCEDURE DATE: 03/20/2022 INCISION/PROCEDURE START TIME: 8:05 AM INCISION CLOSE/PROCEDURE END TIME: 8:34 AM SURGEON(S)/PROCEDURALIST(S ) AND FAIRING WORKER(S): Surgeon(s) and Role: * Janay Bush MD - Primary Maintenance Millwright: Yanet Flores SA SURGERY/PROCEDURE(S): 1. Ultrasound-guided access retrograde right common femoral artery. 2. Left upper extremity anterior with catheter placed into the third order brachial artery. 3. Balloon angioplasty the subclavian artery with a 6 mm Zachery. 4. Balloon angioplasty from the subclavian through the axillary with a 5 x 200 Norman drug-coated balloon. 4. Closure with Mynx ANESTHESIA: Procedural Sedation SURGERY/PROCEDURE DETAILS: Patient brought to the operating room. Underwent appropriate timeout consent. Underwent sedation. Was prepped and draped in a sterile fashion. We did ultrasound-guided access retrograde right common femoral artery. Put a Glidewire up and then a 5 British sheath. Gave 5000 units of heparin. Brought a glide catheter up and access into the left subclavian. An angiogram from there showing some stenosis throughout the subclavian and into the axillary artery. We put a longer stiff Glidewire in and then brought in a longer 5 British sheath. Switched to a 0.018 wire. We then balloon from the subclavian and axillary artery with a 5 x 200 Norman drug-coated balloon for over 2-1/2 minutes. We then ballooned the entire subclavian into the proximal axillary with a 6 x 100 Zachery for over 2-1/2 minutes. Completion was much improved the did appear to be better flow through here. We then removed out the sheath put a shorter sheath. We then deployed a minx with good hemostasis. Patient was then brought to recovery stable condition. PRE-OP/PRE-PROCEDURE DIAGNOSIS: Left upper extremity PAD POST-OP/POST-PROCEDURE DIAGNOSIS: Same ESTIMATED BLOOD LOSS: Less than 10 cc SPECIMENS: None IMPLANTABLE DEVICES: None DRAINS: None COMPLICATIONS: None SIGNATURE: Janay Bush MD PATIENT NAME: Jabier Atwood DATE: March 20, 2022 TIME: 8:50 AM Normal [facility] No Panel Informationon 03-03 Prostate Specific Antigen Total 4.92 ng/mL 0.0-4.0 [facility] Work Phone: Comment on above: This test was perfor med using the TPSA assay method for [employer] chemistry system. Values obtained with differentassay methods cannot be used interchangably.When changing PSA assays in the course of monitoring apatient, additional sequential testing should be carriedout to confirm baseline values. BMPon 12-13-2020 Anion gap [Moles/Vol] 6 mmol/L Normal -16 [facility] Comment on above: Order Comment: Campu s: M Performed By: #### L 500.50891, L500.30774 #### LABORATORY [facility] [place] [address] Calcium [Mass/Vol] 9.2 mg/dL Normal 8.5-10.5 [facility] Comment on above: Order Comment: Campu s: M Result Comment: NOTE NEW NORMAL RANGE DUE TO REAGENT CHANGE Performed By: #### L 500.35214, L500.13116 #### LABORATORY [facility] [place] [address] Chloride [Moles/Vol] 106 mmol/L Normal 98-107 [facility] Comment on above: Order Comment: Campu s: M Performed By: #### L 500.19639, L500.92342 #### LABORATORY [facility] [place] [address] CO2 [Moles/Vol] 28.0 mmol/L Normal 21-32 [facility] Comment on above: Order Comment: Campu s: M Performed By: #### L 500.22789, L500.21973 #### LABORATORY [facility] [place] [address] Creatinine [Mass/Vol] 0.85 mg/dL Normal 0.5-1.4 [facility] Comment on above: Order Comment: Campu s: M Result Comment: NOTE NEW NORMAL RANGE DUE TO REAGENT CHANGE Patients receiving either N-Acetylcysteine (NAC) or Metamizole prior to venipuncture, may have falsely depressed results. Performed By: #### L 500.42286, L500.53748 #### LABORATORY [address] [place] [address] Glucose [Mass/Vol] 96 mg/dL Normal 70-100 [facility] Comment on above: Order Comment: Campu s: M Result Comment: 70-1 00- Normal Fasting; 100-125 Impaired Fasting; greater than 126 on more than one result- Diabetes. ADA guidelines. Results may be falsely elevated after the administration of Sulfapyridine. Results may be falsely depressed after the administration of Sulfasalazine. Performed By: #### L 500.61318, L500.87694 #### LABORATORY [address] [place] [address] Potassium [Moles/Vol] 4.0 mmol/L Normal 3.5-5.1 [facility] Comment on above: Order Comment: Campu s: M Performed By: #### L 500.72028, L500.72066 #### LABORATORY [address] [place] [address] Sodium [Moles/Vol] 140 mmol/L Normal 136-145 [facility] Comment on above: Order Comment: Campu s: M Performed By: #### L 500.64299, L500.65477 #### LABORATORY [address] [place] [address] Urea nitrogen [Mass/Vol] 14 mg/dL Normal 7-26 [facility] Comment on above: Order Comment: Campu s: M Performed By: #### L 500.91003, L500.68218 #### LABORATORY [address] [place] [address] Urea nitrogen/Creatinine [Mass ratio] 16 mg/mg Normal 15-24 [facility] Comment on above: Order Comment: Campu s: M Performed By: #### L 500.69414, L500.22749 #### LABORATORY [address] [place] [address] CBC W/DIFFon 12-13-2020 BASO ABS 0.00 K/CU MM Normal 0-0.2 [facility] Comment on above: Order Comment: Campu s: M Performed By: #### L 200.82817 #### LABORATORY [address] [place] [address] Basophils/100 WBC (Bld) 0.3 % Normal 0-2 [facility] Comment on above: Order Comment: Campu s: M Performed By: #### L 200.36721 #### LABORATORY [address] [place] [address] EOS ABS 0.10 K/CU MM Normal 0-0.5 [facility] Comment on above: Order Comment: Campu s: M Performed By: #### L 200.77563 #### LABORATORY [address] [place] [address] Eosinophils/100 WBC (Bld) 1.6 % Normal 0-5 [facility] Comment on above: Order Comment: Campu s: M Performed By: #### L 200.78346 #### LABORATORY [address] [place] [address] Erythrocyte distribution width (RBC) [Ratio] 13.3 % Normal 11-14.5 [facility] Comment on above: Order Comment: Campu s: M Performed By: #### L 200.07340 #### LABORATORY [address] [place] [address] Hematocrit (Bld) [Volume fraction] 41.2 % Normal 41.0-53.0 [facility] Comment on above: Order Comment: Campu s: M Performed By: #### L 200.36600 #### LABORATORY [address] [place] [address] Hemoglobin (Bld) [Mass/Vol] 13.7 g/dL Normal 13.5-17.5 [facility] Comment on above: Order Comment: Campu s: M Performed By: #### L 200.35010 #### LABORATORY [address] [place] [address] IMMATR GRAN ABS 0.00 K/CU MM Normal Less than 2 [facility] Comment on above: Order Comment: Campu s: M Performed By: #### L 200.33234 #### LABORATORY [address] [place] [address] IMMATURE GRAN % 0.3 % Normal Less than 2 [facility] Comment on above: Order Comment: Campu s: M Performed By: #### L 200.28207 #### LABORATORY [address] [place] [address] LYMPH ABS 2.00 K/CU MM Normal 0.9-4.4 [facility] Comment on above: Order Comment: Campu s: M Performed By: #### L 200.44721 #### LABORATORY [address] [place] [address] Lymphocytes/100 WBC (Bld) 21.7 % Normal 20-40 [facility] Comment on above: Order Comment: Campu s: M Performed By: #### L 200.76459 #### LABORATORY [address] [place] [address] MCHC (RBC) [Mass/Vol] 33.3 g/dL Normal 32.0-36.0 [facility] Comment on above: Order Comment: Campu s: M Performed By: #### L 200.65113 #### LABORATORY [address] [place] [address] MCV (RBC) [Entitic vol] 88.0 fL Normal 80.0-99.0 [facility] Comment on above: Order Comment: Campu s: M Performed By: #### L 200.99502 #### LABORATORY [address] [place] [address] MONO ABS 0.90 K/CU MM Normal 0.1-1.1 [facility] Comment on above: Order Comment: Campu s: M Performed By: #### L 200.55864 #### LABORATORY [address] [place] [address] Monocytes/100 WBC (Bld) 9.5 % Normal 2-10 [facility] Comment on above: Order Comment: Campu s: M Performed By: #### L 200.67074 #### LABORATORY [address] [place] [address] NEUTROPHIL ABS 6.00 K/CU MM Normal 2.0-8.3 [facility] Comment on above: Order Comment: Campu s: M Performed By: #### L 200.28163 #### LABORATORY [address] [place] [address] Neutrophils/100 WBC (Bld) 66.6 % Normal 45-75 [facility] Comment on above: Order Comment: Campu s: M Performed By: #### L 200.56574 #### LABORATORY [address] [place] [address] Nucleated RBC/100 WBC (Bld) [Ratio] 0.0 % Normal Less than 1 [facility] Comment on above: Order Comment: Campu s: M Performed By: #### L 200.70674 #### LABORATORY [address] [place] [address] Platelet mean volume (Bld) [Entitic vol] 8.4 fL Low 9.4-12.4 [facility] Comment on above: Order Comment: Campu s: M Performed By: #### L 200.18182 #### LABORATORY [address] [place] [address] PLT 305 K/CU MM Normal 150-450 [facility] Comment on above: Order Comment: Campu s: M Performed By: #### L .33034 #### LABORATORY [address] [place] [address] RBC 4.68 M/CU MM Normal 4.50-6.00 [facility] Comment on above: Order Comment: Campu s: M Performed By: #### L .[id number] #### LABORATORY [address] [place] [address] WBC 9.0 K/CUMM Normal 4.5-11.0 [facility] Comment on above: Order Comment: Campu s: M Performed By: #### L [id number] #### LABORATORY [address] [place] [address] EKGon 12-13-2020 Electrocardiogram Procedure Date and T eleni: 12/13/20657 Test Reason : URGENT Blood Pressure : / mmHG Vent. Rate : 054 BPM Atrial Rate : 054 BPM P-R Int : 158 ms QRS Dur : 102 ms QT Int : 424 ms P-R-T Axes : 020 002 022 degrees QTc Int : 402 ms Sinus bradycardia with sinus arrhythmia Otherwise normal ECG No previous ECGs available Confirmed by Fawn Leggett ([id number]) on 12/22/2020 8:07:15 AM Referred By: Janay Bush Confirmed By:Fawn Leggett Matteo DDandT: 12/13/20 0658 TDandT: PATIENT NAME: RAIJABIER [address] Gael ALMONTE REC #: [id number] [place] [id number] ADMIT DATE: DISCHARGE DATE: ATTENDING PHY: Janay Bush MD ELECTROCARDIOGRAM REPORT CLB cc: PATIENT NAME: JABIER ATWOOD [facility] [address] [place] MEDICAL REC #: [id number] [place] [address] ADMIT DATE: DISCHARGE DATE: ATTENDING PHY: Janay Bush MD ELECTROCARDIOGRAM REPORT [facility] IF AMER Greater than 60 Normal [facility] Comment on above: Order Comment: Campu s: M Performed By: #### L [id number], [id number] #### LABORATORY [address] [place] [address] IF non-AFR AMER Greater than 60 Normal [facility] Comment on above: Order Comment: Campu s: M Performed By: #### L 500.69974, [id number] #### LABORATORY [address] [place] [address] OR.OPRPTon 12-13-2020 Operative Report Normal [facility] OR.OPRPT [facility] Patient Name: JABIER ATWOOD [address] [place] [address] Date of : [address] [address] Unit Number: [id number] Operative Report Patient Status: REG SDC Attending Doctor: Janay Bush MD Service Date: 12/13/20 1010 Operative Report Procedure Date: 12/13/20 Attending Physician: Janay Bush MD Procedure: Preoperative Diagnosis: Bilateral arm PAD and possible thoracic outlet Postoperative Diagnosis: The same Procedure Type: 1. Ultrasound-guided access retrograde right common femoral artery. 2. Bilateral selective upper extremity angiogram. Bilateral catheters placed into the brachial arteries. 3. Balloon angioplasty the right axillary artery with a 4 x 150 and then a 5 x 100 Norman drug-coated balloon. 4. Balloon angioplasty of the left subclavian through the axillary artery with a 4 x 200 and then a 5 x 220 lutonix drug-coated balloon. 5. Closure with Vascade Anesthesia: Sedation Complications: None Procedure Details: Patient brought to the operating room. Underwent appropriate timeout consent. Underwent sedation. Was prepped and draped in a sterile fashion. We did ultrasound-guided access retrograde right common femoral artery. We put a 5 British sheath and then 5000 units of heparin. We then put a wire up into the arch and brought in the 100 Kumpe. We then selected out the right innominate and did an angiogram from there showing the proximal subclavian carotid artery. Put a wire into the subclavian artery did an angiogram down the right arm. This showed the severe stenosis through the axillary artery. Were able to cross this with a Glidewire and catheter and brought in a long 6 British sheath. We then switched out to a V 18 wire. We ballooned first across this area with a 4 x 150 Norman drug-coated balloon for over 2 minutes. And then with a 5 x 100 Norman drug-coated balloon for over 2 minutes. Completion was much improved with much better flow through this area. We then remove the wire catheter back and selected out the left subclavian. Put the catheter in and did a angiogram from there. Showed severe stenosis in the subclavian just past the vertebral artery. The rest of the subclavian through the axillary was diminutive. Distal axillary to the brachial appeared to be more normal caliber. We got the Glidewire down through here and did an angio from the brachial showing good flow from that area. We then switch back to the V 18. We ballooned through this with a 4 x 200 Norman drug-coated balloon for over 2 minutes. We then switched to a 5 x 220 and balloon that for over 2 minutes as well. The proximal lesion was much improved with better flow. The rest of the subclavian axillary also had improved flow. We then removed the sheath and switched to a shorter sheath deployed a Vascade with good hemostasis. Brought to recovery recovery in stable condition. Plan: We will see him back in a month. If he is not improving we will continue to follow with intermittent balloon angioplasty. If the left side recurs he may need a supraclavicular approach and anterior scalenectomy and freeing up of the subclavian artery with further angioplasty. Sedation: This 75-year-old gentleman underwent moderate sedation given by Dr. Janay Bush. He was monitored EKG blood pressure and pulse ox for over the 30 minutes of the procedure. See the EMR for the complete record. Fluoroscopy: Fluoroscopy: 9.7 minutes Dose: 325 mGy Contrast dye: 50 cc Disclaimer This dictation was created using voice recognition software. Phonetic and/or minor grammatical errors may exist. eSign Date and Time Janay Bush MD Verified/Reviewed by 12/13/[address] [place] [address] Mike 09-09-2017 CNOV Office Visit (UROLWS) JABIER ATWOOD ([id number]) 1945 MDate Time Provider Department09/09/17 9:00 AM JB TAYLOR) UROLWS During your visit today, we recorded the following information about you: Pulse Respiration Blood pressure Weight 62/minute 19/minute 146/82 86.6 kgMALIHA Lee 09/09/2017 10:03 AM [facility] InstituteCC: ANDquot; BPHANDquot;HPIWilliam J Rai is a 72 year old male, who has a history of BPH with LUTS.Currently taking Flomax 0.4 mg and Proscar 5 mg dailyPSA today 1.36Patient states he is getting up every hour at night to urinate despite being ondual therapy for many yearsPatient states he is havingWEAK STREAMNOCTURIA 5-6 times/nightPVR = 0 ml ( order PVR)LAB:PSA:PSA (ng/mL)Date Value09/07/2017 1.3604/10/2016 0.9304/09/2015 0.8603/ 0.5910/12/2012 1.7710/01/2012 1.50 sCr:No results found for: CREATIMAGING:No imaging todayALLERGIES:Celebrex [Celecoxib]CURRENT MEDICATIONS:Current Outpatient Prescriptions:tamsulosin (FLOMAX) 0.4 mg cp24 Take 1 capsule by mouth daily at bedtime. Disp:90 capsule Rfl: 4finasteride (PROSCAR) 5 mg tablet Take 1 tablet by mouth once daily. Disp: 90tablet Rfl: 4SELENIUM 200 MCG TAB once daily Disp: Rfl: 0amlodipine besylate/benazepril(LOTREL 5 MG-10 MG CAP) Take one(1) tablet daily.Disp: Rfl: 0PRAVACHOL 40 MG TAB Take one(1) tablet daily. Disp: Rfl: 0NIASPAN 500 MG TAB Take one(1) tablet daily at bedtime. Disp: Rfl: 0No current facility-administered medications for this visit.REVIEW OF SYSTEMSGENERAL:SEE HPI, No weight loss, malaise or fevers.GENITOURINARY: See HPIThe remainder of the ROS was negative.PHYSICAL EXAMINATIONBlood pressure 146/82, pulse 62, resp. rate 19, weight 86.6 kg (191 lb).General appearance: Well appearing, alert, in no acute distress, well-hydrated,well nourishedAbdomen: Abdomen soft, non-tender. Bowel sounds normal. No masses, organomegalyMALE EXAM:No scrotal lesions, cysts, rashes.Epididymes ANDamp; testes: normal size, position, without massesUrethra ANDamp; meatus: normal size ANDamp; position w/o lesion or dischargePenis: circumcised, w/o plaques, lesions, masses, or deformities.Rectal Exam: Prostate: size ( 40 grams ), symmetrical, non- tender, w/onodules.IMPRESSION/PLAN :ANDgt; History of BPH with LUTS ANDgt; PVR -0 ml ANDgt; Continue Flomax and Proscar getting these from Dr. Cifuentes ANDgt; Disscussed trial of ditropan trial to see if NTF every hour continuesANDgt; 3 mo follow up for new medication discussionANDgt; 1 year Appt w/ RICKEY Galan MT, ELIZABET with labs and/or imaging prior tovisit ANDgt; Future labs ordered RICKEY Mora MT, PA-CElectronically signedReferring Provider: SELF [200]Allergies As of Date: 09/09/2017 Noted Allergy ReactionCELEBREX (CELECOXIB) 09/25/2010 14 - Other: See Comments Comments: hypertensionDate Reviewed: 09/09/2017Reviewed by: Dimple Duarte Ma - Fully AssessedReason for Visit: Follow Up [171] BPH [1368]Primary Visit Diagnosis:BPH with obstruction/lower urinary tract symptoms [N40.1, N13.8] Other Visit Diagnoses:Nocturia [R35.1] Bladder neck obstruction [N32.0]Order(s):UA DIP, URINE (POC) [2154651] Order #: [id number] UA DIP, URINE (POC) [1171491] Order #: [id number]. #:[id number] MSR POST-VOID RESID URINE [78309PHH] Order #: [id number] oxybutynin (DITROPAN) 5 mg tabletTake 1 tablet by mouth daily at bedtime.Disp: 30 tabletRfl: 3 PSA/PROSTSPECAG DIAG [SQPSA] Order #: [id number] FUTUREPrescriptions as of 09/09/2017 Sig: TAMSULOSIN 0.4 MG CAPSULE Take 1 capsule by mouth daily* FINASTERIDE 5 MG TABLET Take 1 tablet by mouth once d* * SELENIUM 200 MCG TABLET once daily * LOTREL 5 MG-10 MG CAPSULE Take one(1) tablet daily. * PRAVACHOL 40 MG TABLET Take one(1) tablet daily. * NIASPAN 500 MG TABLET,EXTENDE* Take one(1) tablet daily at b* OXYBUTYNIN CHLORIDE 5 MG TABL* Take 1 tablet by mouth daily *Problem List As Of Date 09/09/2017 Noted Resolved BLADDER NECK OBSTRUCTION [N32.0] INVALID FOR* BPH (benign prostatic hypertrophy) with urinary*INVALID FOR* Nocturia [R35.1] INVALID FOR* Urinary frequency [R35.0] INVALID FOR* Medication intolerance [Z78.9] INVALID FOR*Prescriptions ordered this encounter Disp Refills Start End OXYBUTYNIN CHLORIDE 5 MG TABLET 30 t* 3 09/09/2017 Route: ORAL Sig: Take 1 tablet by mouth daily at bedtime.Disposition: Return in about 3 months (around 12/09/2017).Follow-up and Disposition History RecordedEncounter Number: [id number] Status:Closed by JB TAYLOR PA-C on 09/09/17 [facility] PRO[facility]on 09-09-2017 PROGRESS HNO ID: [id number] thor: Jb (Maliha) Latia: (none)Author Type: Physician AssistantType: Progress NotesFiled: 09/09/2017 10:03 AMNote Text:[facility] InstituteCC: BPHHPIWillizena Atwood is a 72 year old male, who has a history of BPH withLUTS.Currently taking Flomax 0.4 mg and Proscar 5 mg dailyPSA today 1.36Patient states he is getting up every hour at night to urinate despitebeing on dual therapy for many yearsPatient states he is havingWEAK STREAMNOCTURIA 5-6 times/nightPVR = 0 ml ( order PVR)LAB:PSA:PSA (ng/mL)Date Value09/07/2017 1.3604/10/2016 0.9304/09/2015 0.8603/ 0.5910/12/2012 1.7710/01/2012 1.50 sCr:No results found for: CREATIMAGING:No imaging todayALLERGIES:Celebrex [Celecoxib]CURRENT MEDICATIONS:Current Outpatient Prescriptions:tamsulosin (FLOMAX) 0.4 mg cp24 Take 1 capsule by mouth daily at bedtime.Disp: 90 capsule Rfl: 4finasteride (PROSCAR) 5 mg tablet Take 1 tablet by mouth once daily. Disp:90 tablet Rfl: 4SELENIUM 200 MCG TAB once daily Disp: Rfl: 0amlodipine besylate/benazepril(LOTREL 5 MG-10 MG CAP) Take one(1) tabletdaily. Disp: Rfl: 0PRAVACHOL 40 MG TAB Take one(1) tablet daily. Disp: Rfl: 0NIASPAN 500 MG TAB Take one(1) tablet daily at bedtime. Disp: Rfl: 0No current facility-administered medications for this visit.REVIEW OF SYSTEMSGENERAL:SEE HPI, No weight loss, malaise or fevers.GENITOURINARY: See HPIThe remainder of the ROS was negative.PHYSICAL EXAMINATIONBlood pressure 146/82, pulse 62, resp. rate 19, weight 86.6 kg (191 lb).General appearance: Well appearing, alert, in no acute distress,well-hydrated, well nourishedAbdomen: Abdomen soft, non-tender. Bowel sounds normal. No masses,organomegalyMALE EXAM:No scrotal lesions, cysts, rashes.Epididymes AND testes: normal size, position, without massesUrethra AND meatus: normal size AND position w/o lesion or dischargePenis: circumcised, w/o plaques, lesions, masses, or deformities.Rectal Exam: Prostate: size ( 40 grams ), symmetrical, non- tender, w/onodules.IMPRESSION/PLAN :> History of BPH with LUTS > PVR -0 ml > Continue Flomax and Proscar getting these from Dr. Cifuentes > Disscussed trial of ditropan trial to see if NTF every hour continues> 3 mo follow up for new medication discussion> 1 year Appt RICKEY Guzman MT, PA-C with labs and/or imaging priorto visit > Future labs ordered PSARICKEY Herrera MT, PA-CElectronically signed Normal [facility] PSA, Diagnosticon 09-07-2017 PSA, Diagnostic 1.36 ng/mL Normal 0.00-2.59 [facility] [place] [facility] Comment on above: Result Comment: Rachele sood PSA test methodology used is the Electrochemiluminescence Immunoassay. Performed By: #### P SA ####[facility] [id number] [place], [place] [id number] Vital Signs Date Time Vital Sign Value Performing Clinician Facility 02-14-2025 13:07-0400 Body height 177.[address] Godfrey Cifuentes DO Work Phone: [facility] 02-14-2025 13:07040 Body mass index (BMI) [Ratio] 24.7 kg/m2 Dr. Godfrey Cifuentes DO Work Phone: [facility] 02-14-2025 13:07-040 Body temperature 97.7 [degF] Dr. Godfrey Cifuentes DO Work Phone: [facility] 02-14-2025 13:07-0400 Body weight 78.[address] Godfrey Cifuentes DO Work Phone: [facility] 02-14-2025 13:07-0400 Diastolic blood pressure 78 mm[Hg] Dr. Godfrey Cifuentes DO Work Phone: [facility] 02-14-2025 13:07-0400 Heart rate 81 /min Dr. Godfrey Cifuentes DO Work Phone: [facility] 02-14-2025 13:07-0400 Respiratory rate 16 /min Dr. Godfrey Cifuentes DO Work Phone: [facility] 02-14-2025 13:07-0400 SaO2% (BldA) [Mass fraction] 95 % Dr. Godfrey Cifuentes DO Work Phone: [facility] 02-14-2025 13:07-0400 Systolic blood pressure 132 mm[Hg] Dr. Godfrey Cifuentes DO Work Phone: [facility] 05-18-2023 18:19-0500 Diastolic blood pressure 67 mm[Hg] Dr. Godfrey Cifuentes Work Phone: [facility] 05-18-2023 18:19-0500 Heart rate 97 /min Dr. Godfrey Cifuentes Work Phone: [facility] 05-18-2023 18:19-0500 Respiratory rate 16 /min Dr. Godfrey Cifuentes Work Phone: [facility] 05-18-2023 18:19-0500 SaO2% (BldA) [Mass fraction] 97 % Dr. Godfrey Cifuentes Work Phone: [facility] 05-18-2023 18:19-0500 Systolic blood pressure 135 mm[Hg] Dr. Godfrey Cifuentes Work Phone: [facility] 05-18-2023 17:54-0500 Body temperature 97.4 [degF] Dr. Godfrey Cifuentes Work Phone: [facility] 05-18-2023 15:15-0500 Inhaled oxygen flow rate 4 L/min Dr. Godfrey Cifuentes Work Phone: [facility] 05-18-2023 09:19-0500 Body height 177.[address] Godfrey Cifuentes Work Phone: [facility] 05-18-2023 09:19-0500 Body mass index (BMI) [Ratio] 24.3 kg/m2 Dr. Godfrey Cifuentes Work Phone: [facility] 05-18-2023 09:19-0500 Body weight [address] Godfrey Cifuentes Work Phone: [facility] 05-05-2023 08:46-0500 Body height 177.[address] Godfrey Cifuentes Work Phone: [facility] 05-05-2023 08:46-0500 Body mass index (BMI) [Ratio] 24.4 kg/m2 Dr. Godfrey Cifuentes Work Phone: [facility] 05-05-2023 08:46-0500 Body temperature 97.6 [degF] Dr. Godfrey Cifuentes Work Phone: [facility] 05-05-2023 08:46-0500 Body weight 77.[address] Godfrey Cifuentes Work Phone: [facility] 05-05-2023 08:46-0500 Diastolic blood pressure 72 mm[Hg] Dr. Godfrey Cifuentes Work Phone: [facility] 05-05-2023 08:46-0500 Heart rate 84 /min Dr. Godfrey Cifuentes Work Phone: [facility] 05-05-2023 08:46-0500 Respiratory rate 16 /min Dr. Godfrey Cifuentes Work Phone: [facility] 05-05-2023 08:46-0500 SaO2% (BldA) [Mass fraction] 97 % Dr. Godfrey Cifuentes Work Phone: [facility] 05-05-2023 08:46-0500 Systolic blood pressure 138 mm[Hg] Dr. Godfrey Cifuentes Work Phone: [facility] 02-03-2023 09:50-0400 Body height 177.[address] Godfrey Cifuentes Work Phone: [facility] 02-03-2023 09:50-0400 Body mass index (BMI) [Ratio] 23.9 kg/m2 Dr. Godfrey Cifuentes Work Phone: [facility] 02-03-2023 09:50-0400 Body temperature 95.4 [degF] Dr. Godfrey Cifuentes Work Phone: [facility] 02-03-2023 09:50-0400 Body weight 75.[address] Godfrey Cifuentes Work Phone: [facility] 02-03-2023 09:50-0400 Diastolic blood pressure 78 mm[Hg] Dr. Godfrey Cifuentes Work Phone: [facility] 02-03-2023 09:50-0400 Heart rate 84 /min Dr. Godfrey Cifuentes Work Phone: [facility] 02-03-2023 09:50-0400 Respiratory rate 18 /min Dr. Godfrey Cifuentes Work Phone: [facility] 02-03-2023 09:50-0400 SaO2% (BldA) [Mass fraction] 97 % Dr. Godfrey Cifuentes Work Phone: [facility] 02-03-2023 09:50-0400 Systolic blood pressure 154 mm[Hg] Dr. Godfrey Cifuentes Work Phone: [facility] 01-18-2023 09:08-0400 Diastolic Blood Pressure Non-Invasive 60 1 ALBERTO MOTLEY MD [facility] 01-18-2023 09:08-0400 Heart rate 72 /min ALBERTO MOTLEY MD [facility] 01-18-2023 09:08-0400 Respiratory rate 16 /min ALBERTO MOTLEY MD [facility] 01-18-2023 09:08-0400 Systolic Blood Pressure Non-Invasive 132 1 ALBERTO MOTLEY MD [facility] 01-18-2023 08:52-0400 Diastolic Blood Pressure Non-Invasive 58 1 ALBERTO MOTLEY MD [facility] 01-18-2023 08:52-0400 Heart rate 55 /min ALBERTO MOTLEY MD [facility] 01-18-2023 08:52-0400 Respiratory rate 16 /min ALBERTO MOTLEY MD [facility] 01-18-2023 08:52-0400 Systolic Blood Pressure Non-Invasive 123 1 ALBERTO MOTLEY MD [facility] 01-18-2023 07:27-0400 Diastolic Blood Pressure Non-Invasive 54 1 ALBERTO MOTLEY MD [facility] 01-18-2023 07:27-0400 Heart rate 61 /min ALBERTO MOTLEY MD [facility] 01-18-2023 07:27-0400 Respiratory rate 16 /min ALBERTO MOTLEY MD [facility] 01-18-2023 07:27-0400 Systolic Blood Pressure Non-Invasive 103 1 ALBERTO MOTLEY MD [facility] 01-18-2023 06:46-0400 Blood Pressure Cuff Size ALBERTO MOTLEY MD [facility] 01-18-2023 06:46-0400 Blood Pressure Location ALBERTO MOTLEY MD [facility] 01-18-2023 06:46-0400 Blood Pressure Method ALBERTO MOTLEY MD [facility] 01-18-2023 06:46-0400 Body height 175.3 cm ALBERTO MOTLEY MD [facility] 01-18-2023 06:46-0400 Body temperature 96.98 [degF] ALBERTO MOTLEY MD [facility] 01-18-2023 06:46-0400 Body weight 75 kg ALBERTO MOTLEY MD [facility] 01-18-2023 06:46-0400 Heart rate 64 /min ALBERTO MOTLEY MD [facility] 10-02-2022 13:55-0400 Body height 177.[address] Godfrey Cifuentes Work Phone: [facility] 01-30-2022 10:16-0400 Body height 177.[address] Godfrey Cifuentes Work Phone: [facility] Work Phone: Encounters Encounter Date Encounter Type Care Provider Facility Start: 02-14-2025 End: 02-14-2025 Patient encounter procedure Mak JETT [facility] Work Phone: Start: 02-14-2025 End: 02-14-[address] Godfrey Cifuentes DO Work Phone: [facility] Start: 11-06-2024 End: 11-06-[address] Godfrey Cifuentes DO Work Phone: [facility] Work Phone: Start: 11-06-2024 End: 11-06-[address] Casa Nolasco MD -Laboratory Work Phone: Start: 11-06-2024 End: 11-06-2024 ambulatory Godfrey Hyde [facility] Facility:[facility] Start: 06-09-2024 Encounter for genera l adult medical examination without abnormal findings Godfrey Cifuentes [facility] Start: 05-15-2024 End: 05-15-2024 ambulatory Godfrey Cifuentes Facility:[facility] Start: 05-09-2024 End: 05-09-2024 ambulatory Godfrey Cifuentes Facility:[facility] Start: 05-09-2024 End: 05-09-2024 ambulatory Godfrey Cifuentes Facility:[facility] Start: 08-31-2023 End: 08-31-[address] Godfrey Cifuentes Work Phone: [facility] Work Phone: Start: 08-31-2023 End: 08-31-[address] Godfrey Cifuentes Work Phone: [facility] Work Phone: Start: 06-28-2023 End: 06-28-[address] Godfrey Cifuentes Work Phone: [facility] Work Phone: Start: 06-02-2023 End: 06-02-[address] Godfrey Cifuentes Work Phone: [facility] Work Phone: Start: 05-21-2023 ambulatory JOSE PEREZSARA DO [place] [facility] Start: 05-21-2023 End: 07-02-2023 Physical therapy management JOSE RODRIGUEZ [facility] Start: 05-18-2023 Non-patient / Non-visit Dr. Dill Work Phone: [facility] Start: 05-18-2023 End: 05-18-2023 Admission to same day surgery center Dr. Godfrey Cifuentes Work Phone: [facility] Start: 05-14-2023 End: 05-14-[address] Godfrey Cifuentes Work Phone: [facility] Work Phone: Start: 05-14-2023 End: 05-14-[address] Godfrey Cifuentes Work Phone: [facility]Cat [facility], [facility] Work Phone: Start: 05-10-2023 End: 05-10-2023 Non-patient / Non-visit Dr. Godfrey Cifuentes Work Phone: [facility] Work Phone: Start: 05-07-2023 End: 05-07-[address] Godfrey Cifuentes Work Phone: [facility] Work Phone: Start: 05-05-[address] Marlen Cifuentes Work Phone: [facility] Start: 05-05-[address] Godfrey Cifuentes DO Work Phone: [facility] Start: 05-05-2023 End: 05-05-2023 Encounter for other preprocedural examination Dr. Godfrey Cifuentes Work Phone: [facility] Start: 05-05-2023 End: 05-05-[address] Godfrey Cifuentes Work Phone: [facility] Work Phone: Start: 05-04-2023 End: 05-04-[address] Godfrey Cifuentes Work Phone: [facility] Work Phone: Start: 05-04-2023 End: 05-04-[address] Godfrey Cifuentes Work Phone: [facility] Work Phone: Start: 03-31-2023 End: 03-31-[address] Godfrey Cifuentes Work Phone: [facility] Work Phone: Start: 03-23-2023 Non-patient / Non-visit Dr. Dill Work Phone: [facility] Start: 03-23-2023 End: 03-23-[address] Godfrey Cifuentes Work Phone: [facility] Work Phone: Start: 03-23-2023 End: 03-23-[address] Godfrey Cifuentes Work Phone: [facility] Work Phone: Start: 02-22-2023 End: 02-22-[address] Godfrey Cifuentes Work Phone: [facility]/Neurology Work Phone: Start: 02-12-2023 End: 02-12-[address] Godfrey Cifuentes Work Phone: [facility] Work Phone: Start: 02-09-2023 End: 02-09-[address] Godfrey Cifuentes Work Phone: [facility] Work Phone: Start: 02-09-2023 End: 02-09-[address] [facility] Start: 02-03-2023 End: 02-03-[address] Godfrey Cifuentes Work Phone: [facility] Work Phone: Start: 01-21-2023 End: 01-21-[address] Godfrey Cifuentes Work Phone: [facility] Work Phone: Start: 01-18-2023 End: 01-18-2023 Emergency department patient visit ALBERTO MOTLEY MD Facility:[facility] Start: 01-18-2023 End: 01-18-2023 Emergency department patient visit ALBERTO MOTLEY MD [facility] Start: 11-13-2022 End: 11-13-[address] Godfrey Cifuentes Work Phone: [facility] Start: 11-11-2022 End: 11-11-[address] Godfrey Cifuentes Work Phone: [facility] Work Phone: Start: 11-11-2022 End: 11-11-[address] Godfrey Cifuentes Work Phone: [facility] Start: 11-04-2022 End: 11-04-[address] Godfrey Cifuentes Work Phone: [facility] Start: 10-21-2022 End: 10-21-[address] Godfrey Cifuentes Work Phone: [facility] Start: 10-14-2022 End: 10-14-[address] Godfrey Cifuentes Work Phone: [facility] Start: 10-07-2022 End: 10-07-[address] Godfrey Cifuentes Work Phone: [facility] Start: 09-01-2022 End: 09-01-2022 ambulatory [facility] Work Phone: Start: 09-01-2022 End: 09-01-2022 Patient encounter procedure [facility] Start: 04-29-2022 Patient encounter procedure [facility] Start: 03-20-2022 End: 03-20-[address] [facility]:[id number] Start: 03-03-2022 End: 03-03-[address] Godfrey Cifuentes Work Phone: [facility] Work Phone: Start: 03-03-2022 End: 03-03-[address] Godfrey Cifuentes Work Phone: [facility] Start: 02-19-2022 End: 02-19-[address] Godfrey Cifuentes Work Phone: [facility] Work Phone: Start: 02-19-2022 End: 02-19-[address] Godfrey Cifuentes Work Phone: [facility] Start: 02-18-2022 End: 02-18-[address] Godfrey Cifuentes Work Phone: [facility] Start: 02-11-2022 End: 02-11-[address] Godfrey Cifuentes Work Phone: [facility] Start: 02-03-2022 End: 02-03-[address] Godfrey Cifuentes Work Phone: [facility] Start: 01-22-2022 End: 01-22-[address] Godfrey Cifuentes Work Phone: [facility] Start: 04-22-[address] Marlen Cifuentes Work Phone: [facility] Start: 09-09-2017 End: 09-10-2017 Ambulatory JB T[facility] ([place]) [facility] Start: 09-07-2017 End: 09-07-2017 Ambulatory MUHAMMAD ([place]) T[facility] Procedures Date Procedure Procedure Detail Performing Clinician Start: 11-06-2024 Free prostate specif ic antigen level Dr. Godfrey Cifuentes DO Work Phone: Comment on above: [facility] [facility]. Start: 11-06-2024 Prostate specific an tigen measurement Dr. Godfrey Cifuentes DO Work Phone: Comment on above: [facility] [employer] [facility].According to the [employer], Serum PSAshould decrease and remain at undetectable levels afterradical prostatectomy. The AUA defines biochemicalrecurrence as an initial PSA value 0.200 ng/mL or greaterfollowed by a subsequent confirmatory PSA value 0.200 ng/mLor greater. Values obtained with different assay methods orkits cannot be used interchangeably. Results cannot beinterpreted as absolute evidence of the presence or absenceof malignant disease. Start: 06-28-2023 Radiologic examination of knee Dr. Godfrey Cifuentes Work Phone: Start: 05-18-2023 Radiologic examination of knee Dr. Godfrey Cifuentes Work Phone: Start: 05-14-2023 MRI of lower extremity Dr. Godfrey Cifuentes Work Phone: Start: 05-10-2023 Nasal Screen MRSA/MSSA Dr. Godfrey Cifuentes Work Phone: Start: 11-11-2022 MRI of joint of lower extremity Dr. Godfrey Cifuentes Work Phone: Start: 11-04-2022 Radiologic examination of knee Dr. Godfrey Cifuentes Work Phone: Start: 12-13-2020 Ecg routine ecg w/le ast 12 lds i&r only Plan of Treatment Date Care Activity Detail Author Start: 05-18-2023 Anesth open/surg arthrs total knee arthroplasty ANESTH KNEE ARTHROPLASTY [facility] Start: 05-18-2023 Application of ice collar, cap or bag [facility] Start: 05-18-2023 Arthrp kne condyle&platu medial&lat compartments TOTAL KNEE ARTHROPLASTY [facility] Start: 05-18-2023 Exercises [facility] Start: 05-18-2023 Incentive spirometry [facility] Start: 05-18-2023 Injection aa&/strd other peripheral nerve/branch NJX AA&/STRD OTHER PN/BRANCH [facility] Start: 05-18-2023 Neurovascular assessment [facility] Start: 05-18-2023 Patient discharge [facility] Start: 05-18-2023 Patient education [facility] Start: 05-18-2023 Provision of activity privileges [facility] Start: 05-18-2023 Referral to service [facility] Start: 05-18-2023 Vital signs measurements [facility] Start: 05-18-2023 Wound care [facility] Start: 05-18-2023 [facility] Start: 05-18-2023 Recommendation to continue with treatment [facility] Patient referral [facility] Work Phone: Immunizations Immunization Date Immunization Notes Care Provider Fa nai 03-29-2024 Covid (Spikevax) Dr. Godfrey Cifuentes DO Work Phone: [facility] 03-29-2024 Influenza High-Dose Quadrivalent Dr. Godfrey Cifuentes DO Work Phone: [facility] 01-18-2023 tetanus toxoid, redu charlie diphtheria toxoid, and acellular pertussis vaccine, adsorbed ALBERTO MOTLEY MD [facility] 02-24-2022 influenza virus vaccine, unspecified formulation ALBERTO MOTLEY MD [facility] 10-06-2021 SARS-CoV-2 mRNA (ylwnvmzxqzp-bbae-bfrrt se) vaccine ALBERTO MOTLEY MD [facility] 03-03-2021 SARS-CoV-2 mRNA (tozinameran) vaccine ALBERTO MOTLEY MD [facility] 02-21-2021 influenza virus vaccine, unspecified formulation ALBERTO MOTLEY MD [facility] 05-27-2020 zoster vaccine recombinant ALBERTO MOTLEY MD [facility] 03-27-2020 zoster vaccine recombinant ALBERTO MOTLEY MD [facility] 02-06-2020 influenza virus vaccine, unspecified formulation ALBERTO MOTLEY MD [facility] 02-06-2020 pneumococcal conjuga te vaccine, 13 valent ALBERTO MOTLEY MD [facility] 04-11-2019 pneumococcal conjuga te vaccine, [address] Godfrey Cifuentes Work Phone: [facility] 02-14-2019 influenza virus vaccine, unspecified formulation ALBERTO MOTLEY MD [facility] 02-14-2019 influenza, injectabl e, quadrivalent, preservative free Dr. Godfrey Cifuentes Work Phone: [facility] 02-14-2019 influenza, seasonal, injectable Dr. Godfrey Cifuentes Work Phone: [facility] 04-26-2018 pneumococcal conjuga te vaccine, [address] Godfrey Cifuentes Work Phone: [facility] 03-10-2018 influenza virus vaccine, unspecified formulation ALBERTO MOTLEY MD [facility] 04-20-2017 influenza virus vaccine, unspecified formulation ALBERTO MOTLEY MD [facility] 03-18-2016 influenza virus vaccine, unspecified formulation ALBERTO MOTLEY MD [facility] 04-22-2015 influenza virus vaccine, unspecified formulation ALBERTO MOTLEY MD [facility] 04-17-2014 tetanus toxoid, redu charlie diphtheria toxoid, and acellular pertussis vaccine, adsorbed ALBERTO MOTLEY MD [facility] 03-22-2013 influenza virus vaccine, unspecified formulation ALBERTO MOTLEY MD [facility] 03-08-2012 influenza virus vaccine, unspecified formulation ALBERTO MOTLEY MD [facility] Payers Date Payer Category Payer Self-pay [id number] 2009 Private Health Insurance 101 [id number] 1945 Unknown [id number] 1945 Unknown [id number] Medicare MEDICARE PART A B [id number] Unknown [id number] Unknown [id number] Unknown [id number] Unknown [id number] Unknown [id number] Unknown [id number] Social History Date Type Detail Facility Start: 02-18-2022 End: 06-28-2023 Tobacco smoking status OHIS Unknown if ever smoked [facility] Start: 1945 Sex Assigned At Male [facility] Start: 03-06-2019 End: 05-09-2024 Tobacco smoking status Ex-smoker (finding) [facility] Comment on above: No Tobacco/Smoke Exp osure Sex Male [facility] Medical Equipment Procedure Code Equipment Code Equipment Origin al Text Equipment Identifier Dates ([id number]) Metal-backed pat melida prosthesis [id number] FDA Start: 05-18-2023 ([id number]) Coated knee femu r prosthesis [id number] FDA Start: 05-18-2023 ([id number]) Coated knee tibi a prosthesis [id number] FDA Start: 05-18-2023 ([id number]) Tibial insert [id number] FDA Start: 05-18-2023 Goals Date Patient Goal Desired Activity /State Functional Status Date Assessment Result Facility 05-21-2023 Functional Status Objective: Cardiovascular screen: BP: 120/60 HR: 80 BPM O2 sat: 99% Gait: Ambulates with FWW with step through pattern appears steady. Weight bearing status: WBAT Observation in standing: Genu Valgum/Genu Varum/Genu Recervatum Effusion: min knee effusion. Functional Strength: ASLR: 10, sit to stand: LUCIO relies heavily on UE's Palpation: Denies tenderness to palpation bilat calf regions. Denies chest pain or shortness of breath. [facility] 05-18-2023 Functional status Ambulates [facility] Work Phone: 01-18-2023 Functional Status Independent [facility] 01-18-2023 Functional Status Identified as high risk, Room located near nursing station [facility] Mental Status Date Assessment Result Facility 05-18-2023 Cognitive function Voice/Name [facility] Work Phone: 01-18-2023 Mental Status Orientation Oriented x 4 [facility] 01-18-2023 Mental Status [facility] Clinical Notes 03-20-2022 to 02-14-2025 Note Date & Type Note Facility 02-14-2025 Evaluation note Diagnosis Onset Date Resolution Excessive cerumen in right ear canal acute February 14, 2025 12:43pm [facility] Work Phone: [phone]) 214-745808-21-2023 Hospital Discharge instructions Patient Education 01/18/2023 09:00:35 Hypotension, All Causes Low Blood Pressure (All Causes) A blood pressure reading is made up of 2 numbers There is a top number over a bottom number. The top number is the systolic pressure. The bottom number is the diastolic pressure. A normal blood pressure is a systolic pressure less than 120 over a diastolic pressure less than 80. Low blood pressure (hypotension) is a blood pressure that is less than what is normal for you. Low blood pressure can cause dizziness, lightheadedness, or fainting. Some medicines can cause low blood pressure. They include: High blood pressure pills Water pills (diuretics) Some heart medicines Some antidepressants Pain, anxiety, sedative, and sleeping medicines Other causes include: Dehydration, severe infection, or fever Blood loss, such as bleeding from the stomach or intestines. Heart failure Change in heart rate or rhythm (arrhythmia) A drop in blood pressure from a sudden change in body position, from lying down to standing (orthostatic hypotension) Alcohol or drug intoxication Neurological diseases that impair the autonomic nervous system Treatment will depend on what is causing your low blood pressure. Home care Follow these guidelines when caring for yourself at home: Rest until your symptoms get better. Keep a record of your symptoms and what you were doing when they occurred. Bring the record with you to your next appointment. Be aware of how quickly your blood pressure drops when you become dehydrated, spend a lot of time in the sun, or have low blood sugar. Take measures to prevent blood pressure drops at these times. Follow the treatment plan described by your healthcare provider. Follow-up care Follow up with your healthcare provider, or as advised. When to seek medical advice Call your healthcare provider right away if any of these occur: Dizziness, lightheadedness, or fainting Black or red color in your stools or vomit Shortness of breath or difficulty breathing Chest, shoulder, arm, neck, or upper back pain Abdominal pain Diarrhea or vomiting that doesn t go away You aren t able to eat or drink Fever of 100.4 F (38 C) or higher, or as directed by your healthcare provider Burning when you urinate Foul-smelling urine [id number] [employer]. [address] [place] [address]. All rights reserved. This information is not intended as a substitute for professional medical care. Always follow yourhealthcare professional's instructions. 01/18/2023 09:00:31 Hypotension, Orthostatic Orthostatic Low Blood Pressure (Hypotension) A blood pressure reading is made up of 2 numbers There is a top number over a bottom number. The top number is the systolic pressure. The bottom number is the diastolic pressure. A normal blood pressure is a systolic pressure less than 120 over a diastolic pressure less than 80. Low blood pressure (hypotension) is a blood pressure that is less than what is normal for you. Orthostatic hypotension is a type of low blood pressure that occurs only when you change position from lying to standing. It can cause dizziness, lightheadedness, or fainting. Some medicines can cause orthostatic hypotension. These include: High blood pressure medicines Water pills (diuretics) Some heart medicines Some antidepressants Pain, anxiety, sedative, and sleeping medicines Other causes include: Dehydration from vomiting, diarrhea, or not getting enough fluids Severe infection High fever Blood loss, such as bleeding from the stomach or intestines Neurological diseases that impair the autonomic nervous system Treatment will depend on what is causing your low blood pressure. Home care Follow these guidelines when caring for yourself at home: Rest until your symptoms get better. Change positions slowly from lying to standing. When getting out of bed, sit on the side of the bedwith your legs down for at least 30 seconds before standing. This gives your body time to adjust tothe position change. Follow the treatment plan described by your healthcare provider. Follow-up care Follow up with your healthcare provider, or as advised. When to seek medical advice Call your healthcare provider right away if any of these occur: Dizziness, lightheadedness, or fainting Black or red color in your stools or vomit Diarrhea or vomiting that doesn t go away You aren t able to eat or drink Fever of 100.4 F (38 C) or higher, or as directed by your healthcare provider Burning when you urinate Foul-smelling urine [phone] [employer]. [address] [place] [address]. All rights reserved. This information is not intended as a substitute for professional medical care. Always follow yourhealthcare professional's instructions. 01/18/2023 09:00:20 Syncope, Unk Cause Fainting: Uncertain Cause Fainting (syncope) is a temporary loss of consciousness, which is often associated with a loss of postural tone. There are other causes of fainting, too. It s also called passing out. It occurs when blood flow to the brain is less than normal. Near-fainting (near-syncope) is very similar to fainting, but you don t fully pass out. Common minor causes of fainting include: Sudden fear Pain Nausea Emotional stress Overexertion Suddenly standing up after sitting or lying for a long time can also cause fainting. More serious causes of fainting include: Very slow or very fast heartbeat (arrhythmia) Other types of heart disease, such as heart valve disease or coronary artery disease Dehydration Loss of blood Seizure Stroke Ruptured blood vessel in the brain Taking too much high blood pressure medicine can also cause low blood pressure and fainting. Your healthcare provider does not know the exact cause of your fainting. But the tests today did not show any of the serious causes of fainting. Sometimes you may need more tests to find out if you have a serious problem. That s why it s important to follow up with your provider as advised. Home care Follow these guidelines when caring for yourself at home: Rest today. You may go back to your normal activities when you are feeling back to normal. It is best to stay with someone who can check on you for the next 24 hours to watch for another episode of fainting. If you become lightheaded or dizzy, lie down right away and try to prop your feet above the level of your head. Or sit with your head between your knees. Because the provider doesn t know the exact cause of your fainting or near- fainting spell, it s possible for you to have another spell without warning. Because of this, don t drive a car or operate dangerous equipment. Don t take a bath alone. Use a shower instead. Don t swim alone until your healthcare provider says that you are no longer in danger of having another fainting spell. Follow-up care Follow up with your healthcare provider, or as advised. Call 911 Call 911 if any of these occur: Another fainting spell that s not explained by the common causes listed above Pain in your chest, arm, neck, jaw, back, or abdomen Shortness of breath Severe headache or seizure Blood in vomit or stools (black or red color) Unexpected vaginal bleeding Your heart beats very rapidly, very slowly, or irregularly (palpitations) Weakness in an arm or leg or on one side of the face Difficulty speaking or seeing Extreme drowsiness, confusion, dizziness, or fainting [id number] [employer]. [address] [place] [address], [place] [address]. All rights reserved. This information is not intended as a substitute for professional medical care. Always follow yourhealthcare professional's instructions. Follow Up Care 01/18/2023 06:39:54 With:JANAY BORJAS DO Address: [address] [facility] [place] [address] [phone] When:2-4 days With:Go to emergency room if symptoms worsen Address:Unknown When:2-4 days [facility] 08-21-2023 Note Discharge Instructions Thank you for allowing [facility] to assist you with your healthcare needs. The following is importantdischarge information regarding your hospital visit. Diagnosis from Today's Visit Dizziness Fall Syncope What to Do Next Instructions from Your Care Team For now we will discontinue tamsulosin and finasteride. Be careful upon standing. Check blood pressure once a day. Return to ED if worse. No qualifying data available. Post Acute Orders No qualifying data available. You Need to Schedule the Following Appointments Follow Up with JANAY BORJAS DO When Within 2-4 days Where: [address] [facility] [place] [address]- [phone] Follow Up with Go to emergency room if symptoms worsen When Within 2-4 days Allergies CeleBREX (High Blood Pressure) fluoroquinolone antibiotics (High Blood Pressure) Immunizations This Visit Given Vaccine Datetetanus/diphth/pertuss (Tdap) adult/adol 01/18/2023 Medications Please ask your primary doctor or pharmacist before taking any other medication not listed, including over the counter drugs, herbal medications, vitamins and or supplements as they may interact withyour home medications. What How Much When Instructions Last Dose Unchanged amlodipine-benazepril (Lotrel 5 mg-10 mg oral capsule) 1 cap by mouth Once a day Unchanged finasteride (finasteride 5 mg oral tablet) 1 tab(s) by mouth Once a day Unchanged multivitamin with minerals (Centrum Silver Ultra Men's oral tablet) 1 tab(s) by mouth Once a day Unchanged niacin (niacin 500 mg oral capsule) 1 cap by mouth Once a day Unchanged pravastatin (pravastatin 40 mg oral tablet) 1 tab(s) by mouth Once a day Unchanged selenium (selenium 200 mcg oral tablet) 1 tab(s) by mouth Every day Unchanged tamsulosin (tamsulosin 0.4 mg oral capsule) 1 cap by mouth Once a day Please take this list to your next doctor s visit. Bring all medications you take, including over the counter medications, herbals and other supplements with you to your doctor s visit. Patients and families are reminded to discard old lists and to update any records with all medication providers or retail pharmacies. Education Materials Low Blood Pressure (All Causes) A blood pressure reading is made up of 2 numbers There is a top number over a bottom number. The top number is the systolic pressure. The bottom number is the diastolic pressure. A normal blood pressure is a systolic pressure less than 120 over a diastolic pressure less than 80. Low blood pressure (hypotension) is a blood pressure that is less than what is normal for you. Low blood pressure can cause dizziness, lightheadedness, or fainting. Some medicines can cause low blood pressure. They include: High blood pressure pills Water pills (diuretics) Some heart medicines Some antidepressants Pain, anxiety, sedative, and sleeping medicines Other causes include: Dehydration, severe infection, or fever Blood loss, such as bleeding from the stomach or intestines. Heart failure Change in heart rate or rhythm (arrhythmia) A drop in blood pressure from a sudden change in body position, from lying down to standing (orthostatic hypotension) Alcohol or drug intoxication Neurological diseases that impair the autonomic nervous system Treatment will depend on what is causing your low blood pressure. Home care Follow these guidelines when caring for yourself at home: Rest until your symptoms get better. Keep a record of your symptoms and what you were doing when they occurred. Bring the record with you to your next appointment. Be aware of how quickly your blood pressure drops when you become dehydrated, spend a lot of time in the sun, or have low blood sugar. Take measures to prevent blood pressure drops at these times. Follow the treatment plan described by your healthcare provider. Follow-up care Follow up with your healthcare provider, or as advised. When to seek medical advice Call your healthcare provider right away if any of these occur: Dizziness, lightheadedness, or fainting Black or red color in your stools or vomit Shortness of breath or difficulty breathing Chest, shoulder, arm, neck, or upper back pain Abdominal pain Diarrhea or vomiting that doesn t go away You aren t able to eat or drink Fever of 100.4 F (38 C) or higher, or as directed by your healthcare provider Burning when you urinate Foul-smelling urine [phone] [employer]. [address] [place] [address]. All rights reserved. This information is not intended as a substitute for professional medical care. Always follow yourhealthcare professional's instructions. Orthostatic Low Blood Pressure (Hypotension) A blood pressure reading is made up of 2 numbers There is a top number over a bottom number. The top number is the systolic pressure. The bottom number is the diastolic pressure. A normal blood pressure is a systolic pressure less than 120 over a diastolic pressure less than 80. Low blood pressure (hypotension) is a blood pressure that is less than what is normal for you. Orthostatic hypotension is a type of low blood pressure that occurs only when you change position from lying to standing. It can cause dizziness, lightheadedness, or fainting. Some medicines can cause orthostatic hypotension. These include: High blood pressure medicines Water pills (diuretics) Some heart medicines Some antidepressants Pain, anxiety, sedative, and sleeping medicines Other causes include: Dehydration from vomiting, diarrhea, or not getting enough fluids Severe infection High fever Blood loss, such as bleeding from the stomach or intestines Neurological diseases that impair the autonomic nervous system Treatment will depend on what is causing your low blood pressure. Home care Follow these guidelines when caring for yourself at home: Rest until your symptoms get better. Change positions slowly from lying to standing. When getting out of bed, sit on the side of the bedwith your legs down for at least 30 seconds before standing. This gives your body time to adjust tothe position change. Follow the treatment plan described by your healthcare provider. Follow-up care Follow up with your healthcare provider, or as advised. When to seek medical advice Call your healthcare provider right away if any of these occur: Dizziness, lightheadedness, or fainting Black or red color in your stools or vomit Diarrhea or vomiting that doesn t go away You aren t able to eat or drink Fever of 100.4 F (38 C) or higher, or as directed by your healthcare provider Burning when you urinate Foul-smelling urine [id number] [employer]. [address] [place] [address], [place] [address]. All rights reserved. This information is not intended as a substitute for professional medical care. Always follow yourhealthcare professional's instructions. Fainting: Uncertain Cause Fainting (syncope) is a temporary loss of consciousness, which is often associated with a loss of postural tone. There are other causes of fainting, too. It s also called passing out. It occurs when blood flow to the brain is less than normal. Near-fainting (near-syncope) is very similar to fainting, but you don t fully pass out. Common minor causes of fainting include: Sudden fear Pain Nausea Emotional stress Overexertion Suddenly standing up after sitting or lying for a long time can also cause fainting. More serious causes of fainting include: Very slow or very fast heartbeat (arrhythmia) Other types of heart disease, such as heart valve disease or coronary artery disease Dehydration Loss of blood Seizure Stroke Ruptured blood vessel in the brain Taking too much high blood pressure medicine can also cause low blood pressure and fainting. Your healthcare provider does not know the exact cause of your fainting. But the tests today did not show any of the serious causes of fainting. Sometimes you may need more tests to find out if you have a serious problem. That s why it s important to follow up with your provider as advised. Home care Follow these guidelines when caring for yourself at home: Rest today. You may go back to your normal activities when you are feeling back to normal. It is best to stay with someone who can check on you for the next 24 hours to watch for another episode of fainting. If you become lightheaded or dizzy, lie down right away and try to prop your feet above the level of your head. Or sit with your head between your knees. Because the provider doesn t know the exact cause of your fainting or near- fainting spell, it s possible for you to have another spell without warning. Because of this, don t drive a car or operate dangerous equipment. Don t take a bath alone. Use a shower instead. Don t swim alone until your healthcare provider says that you are no longer in danger of having another fainting spell. Follow-up care Follow up with your healthcare provider, or as advised. Call 911 Call 911 if any of these occur: Another fainting spell that s not explained by the common causes listed above Pain in your chest, arm, neck, jaw, back, or abdomen Shortness of breath Severe headache or seizure Blood in vomit or stools (black or red color) Unexpected vaginal bleeding Your heart beats very rapidly, very slowly, or irregularly (palpitations) Weakness in an arm or leg or on one side of the face Difficulty speaking or seeing Extreme drowsiness, confusion, dizziness, or fainting [id number] [employer]. [address] [place] [address], [place] Dougherty [address]. All rights reserved. This information is not intended as a substitute for professional medical care. Always follow yourhealthcare professional's instructions. Additional Information VACCINATE! IT SAVES LIVES! Members of the community who have not yet received the COVID-19 vaccine and would like to receive it can visit one of [facility] vaccine clinics. There are many vaccine clinic locations within the [facility]. For locations and available times, please visit www.[email or web address].[email or web address]/. It is important to note that some COVID mobile vaccine clinics are held outdoors and may be canceled in rainy or stormy conditions. To learn more about pediatric vaccinations (ages 5-11), we invite you to visit the [facility] webpage. [email or web address] learn more about the COVID-19 vaccine, we invite you to visit the CDC website for a list of frequently asked questions. https://www.cdc.gov/coronavirus/2019-ncov/vaccines/faq.html [facility] Patient Portal Access Instructions: Stay connected with your healthcare team and access your personal medical information anytime with the [facility] Patient Portal. If you would like a full copy of your medical records please contact the [facility] Medical Records Department Wednesday through Wednesday between 8a.m. and 4:30p.m. Please follow the directions below to access the portal: 1.Access the email account you provided upon registration to the [facility].2.Look for an invitation email from [facility].3.Open the email and access the invitation link: Accept Invitation to [facility]4.Fill in the required rob to create your account. Sign into [email or web address] with your username and password that you created in the above steps to stay up to date. You can then view a summary of results, a summary of your visits, and the ability to download your summaries to your computer or send the information securely to a physician. Remember that your healthcare information is confidential, so carefully consider who you will allow to register on the [facility] Patient Portal for access to your information. You can also access the [facility] Patient Portal on the [employer]. Simply click on Health Records under [employer] and then click on the [employer] logo. HOW TO SAFELY DISPOSE OF PRESCRIPTION MEDICATIONS Please use one of the following methods to safely dispose of your unused medications. 1.Use a drug disposal kit: the drug disposal pouch allows you to safely discard your old and unuseddrugs. Ask your nurse to give you one when you are discharged.2.Visit a local take-back location: Many local pharmacies and police departments have programs that collect old and unwanted prescriptiondrugs. Call your local pharmacy or go to http://Refresh Body.NewsiT/9K7Zm6w to find one close to you.3.Make use of household items: Use cat litter or old coffee grounds to dispose medications if other options arenot available. Mix your drugs with these household products, seal them in an airtight container andthrow it into the garbage. Call [facility]: [phone] to be sure your drugs can be disposed of in this way. Some medicines may require a different approach.4.Never flush your medications down the toilet. IF YOU HAVE BEEN PRESCRIBED AN OPIOIDS FOR PAIN If you have been prescribed an opioid (such as hydrocodone, oxycodone or morphine), it is critical to understand the possible side effects and risks of opioid pain medications. Even when taken as directed, opioids can have several side effects including: Tolerance, meaning you might need to take more of a medication for the same pain relief. Nausea, vomiting and/or constipation. Sleepiness, dizziness, dry mouth, confusion, depression or itching. Physical dependence, meaning you have withdrawal symptoms when a medication is stopped ? this can develop within a few days. KNOW YOUR RESPONSIBILITIES It is important to know exactly how much and how often to take the opioid pain medications you are prescribed. Never take opioids in higher amounts or more often than prescribed. Do not combine opioids with alcohol or other drugs that cause drowsiness, such as benzodiazepines, also known as benzos,including diazepam and alprazolam, muscle relaxants or sleep aids. Never sell or share prescriptionopioids. This is illegal. Store opioids in a secure place and out of reach of others (including children, family, friends and visitors). The last page(s) of this document has been signed and retained as a CHART COPY Signatures Patient Education Materials Hypotension, All Causes Hypotension, Orthostatic Syncope, Unk Cause Medication Leaflets My discharge plan and instructions have been reviewed and explained to me and I,JABIER ATWOODd my current condition and have read and understand these discharge instructions. I have received a written copy of the plan/instructions. If I have questions, I am aware that I should contact my doctor. Patient/Logistics Operations Director Signature: Date/Time: Relationship to Patient: Witness Name/Signature: Date/Time: [facility]08-21-2023 Note ORIGINAL EXAMINATION: CT OF THE HEAD WITHOUT CONTRAST 01/18/2023 8:08 am TECHNIQUE: CT of the head was performed without the administration of intravenous contrast. Automated exposure control, iterative reconstruction, and/or weight based adjustment of the mA/kV was utilized to reduce the radiation dose to as low as reasonably achievable. COMPARISON: None. HISTORY: ORDERING SYSTEM PROVIDED HISTORY: Reason for Exam: syncopal episode, fell from a seated position, hit head this morning after exercise. Pt reports having a similar dizzy spell about 1 month ago. syncopal episode, fell, hit head FINDINGS: BRAIN/VENTRICLES: No evidence of acute intracranial hemorrhage, mass effect, midline shift, hydrocephalus, or acute large territorial infarction is identified. Scattered white matter hypodensities are nonspecific but statistically most consistent with mild chronic microvascular angiopathy. The ventricles are mildly enlarged with commensurate enlargement of the sulci most consistent with mild age-related volume loss. Carotid siphon calcifications are present. ORBITS: The visualized portion of the orbits demonstrate no acute abnormality. Bilateral ocular lens implants are present. SINUSES: The visualized paranasal sinuses and mastoid air cells are essentially clear. SOFT TISSUES/SKULL: No acute abnormality of the visualized skull or soft tissues. IMPRESSION: No acute intracranial hemorrhage. Mild chronic microvascular angiopathy and loss. Interpreted by: Charles Horton DO Preliminary Report By: Charles Horton DO Electronically signed By Charles Horton DO Dictated Date: 01/18/2023 8:17:31 AM Prelim Date: 01/18/2023 8:22:40 AM Sign Date: 01/18/2023 8:22:40 AM [facility]ing [facility] Note Sinus rhythm Nonspecific intraventricular conduction delay Electronic Signature: JOSE DIA MD 01/18/2023 07:04:[address] [place] [address] 10-21-2022 NoteHNO ID: [id number] Author: Emily Bryan RN Service: Vascular Surgery Author Type: Registered Nurse Type: Nursing Progress Note Filed: 03/20/2022 8:34 AM Note Text: Right lower extremity pulses strong on doppler. Found by Janice Suárez RN.[facility] No data available for this section [facility] Evaluation note* Diagnosis Onset Date Resolution Status Bilateral primary osteoarthritis of knee acute Bilateral primary osteoarthritis of knee acute Bilateral primary osteoarthritis of knee acute Bilateral primary osteoarthritis of knee acute [facility] Work Phone: Evaluation noteNo assessment information available [facility] Work Phone: Evaluymxfc note* Diagnosis Onset Date Resolution Status Bilateral primary osteoarthritis of knee acute Bilateral primary osteoarthritis of knee acute Bilateral primary osteoarthritis of knee acute Effusion, left knee acute Osteoarthritis of left knee acute Internal derangement of left knee acute Osteoarthritis of left knee acute [facility] Work Phone: Evaluation note* Diagnosis Onset Date Resolution Status Bilateral primary osteoarthritis of knee acute Effusion, left knee acute Osteoarthritis of left knee acute Internal derangement of left knee acute Osteoarthritis of left knee acute Effusion, left knee acute Left knee pain acute Syncope acute Lateral meniscus tear acute Left knee pain acute Medial meniscus tear acute Osteoarthritis of left knee acute [facility] Work Phone: Evaluation note* Diagnosis Onset Date Resolution Status Effusion, left knee acute Left knee pain acute Syncope acute Lateral meniscus tear acute Left knee pain acute Medial meniscus tear acute Osteoarthritis of left knee acute [facility] Work Phone: Evaluation note* Diagnosis Onset Date Resolution Status Effusion, left knee acute Left knee pain acute Syncope acute Lateral meniscus tear acute Left knee pain acute Medial meniscus tear acute Osteoarthritis of left knee acute Lateral meniscus tear acute Medial meniscus tear acute Osteoarthritis of left knee acute Pre-op evaluation acute Hyperlipemia chronic Hypertension chronic Chronic pain of left knee no neactive [facility] Work Phone: Evaluation note* Diagnosis Onset Date Resolution Status Orthopedic aftercare acute Orthopedic aftercare acute [facility] Work Phone: Hospital Discharge instructions No data available for this section [facility] Progress note No data available for this section [facility] Reason for referral (narrative)No reason for referral information [facility] Work Phone: Summary Purpose Family History No Family History Records Found Relationship Condition Age at Onset Recorded Date/T eleni father Cardiac disease Unknown Advance Directives No Advanced Directives Records Found Advance Directive Response Recorded Date/ Time Advance Directives No September 09, 021 10:14am Living Will Yes September 09, 2020 10:14am Power of Parasitology Teacher Yes September 09 10:14am Advance Directive Response Recorded Date/ Time Advance Directives No October 02, 2022 1:55pm Living Will Yes October 02, 2022 1: 55pm Power of Parasitology Teacher Yes October 02, 2022 1:55pm Advance Directive Response Recorded Date/ Time Advance Directives No October 02, 2022 12:55pm Living Will Yes May 05 2:42pm Power of Parasitology Teacher Yes May 05, 2023 2:42pm Advance Directive Response Recorded Date/ Time Name of Medical Power of Parasitology Teacher SPOUSE May 05, 2023 3:42pm Advance Directives No October 02, 2022 1:55pm Living Will Yes May 05 3:42pm Power of Parasitology Teacher Yes May 05, 2023 3:42pm Advance Directive Response Recorded Date/ Time Advance Directives No October 02, 2022 1:55pm Chief Complaint and Reason for Visit Chief Complaint Bilat knees bilat knees bilat knees bilat knees STRICTURE OF ARTERY/WBI & MARLIN, CAROTID STENOSIS Reason for Visit Bilateral primary os teoarthritis of knee Bilateral primary osteoarthritis of knee Bilateral primary osteoarthritis of knee Bilateral primary osteoarthritis of knee Chief Complaint Bilat knees bilat knees bilat knees bilat knees STRICTURE OF ARTERY/WBI & MARLIN, CAROTID STENOSIS LABWORK Reason for Visit Bilateral primary os teoarthritis of knee Bilateral primary osteoarthritis of knee Bilateral primary osteoarthritis of knee Bilateral primary osteoarthritis of knee Chief Complaint BL KNEE BL KNEE BL KNEE LEFT KNEE RM 3 LT KNEE PAIN/SWELLING LEFT KNEE Reason for Visit Bilateral primary os teoarthritis of knee Bilateral primary osteoarthritis of knee Bilateral primary osteoarthritis of knee Effusion, left knee Osteoarthritis of left knee Internal derangement of left knee Osteoarthritis of left knee Chief Complaint BL KNEE LEFT KNEE RM 3 LT KNEE PAIN/SWELLING LEFT KNEE LEFT KNEE ER FU-OK PER DR CIFUENTES SYNCOPE LEFT KNEE Reason for Visit Bilateral primary os teoarthritis of knee Effusion, left knee Osteoarthritis of left knee Internal derangement of left knee Osteoarthritis of left knee Effusion, left knee Left knee pain Syncope Lateral meniscus tear Left knee pain Medial meniscus tear Osteoarthritis of left knee Chief Complaint LEFT KNEE ER FU-OK PER DR CIFUENTES SYNCOPE LEFT KNEE SYNCOPE Syncope and collapse Reason for Visit Effusion, left knee Left knee pain Syncope Lateral meniscus tear Left knee pain Medial meniscus tear Osteoarthritis of left knee Chief Complaint LEFT KNEE ER FU-OK PER DR CIFUENTES SYNCOPE LEFT KNEE SYNCOPE Syncope and collapse LEFT KNEE 1 Y FU left knee Reason for Visit Effusion, left knee Left knee pain Syncope Lateral meniscus tear Left knee pain Medial meniscus tear Osteoarthritis of left knee Lateral meniscus tear Medial meniscus tear Osteoarthritis of left knee Pre-op evaluation Hyperlipemia Hypertension Chronic pain of left knee Chief Complaint LEFT KNEE ER FU-OK PER DR CIFUENTES SYNCOPE LEFT KNEE SYNCOPE Syncope and collapse LEFT KNEE 1 Y FU left knee PREOP BILATERAL OSTEOARTHRITIS OF KNEE Reason for Visit Effusion, left knee Left knee pain Syncope Lateral meniscus tear Left knee pain Medial meniscus tear Osteoarthritis of left knee Lateral meniscus tear Medial meniscus tear Osteoarthritis of left knee Pre-op evaluation Hyperlipemia Hypertension Chronic pain of left knee Chief Complaint PREOP BILATERAL OSTEOARTHRITIS OF KNEE ERAS 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 left knee room 6 Reason for Visit Orthopedic aftercare Orthopedic aftercare Chief Complaint Admit Date COPY RESULTS TO PCP ALSO HE HAS AN EORDE R IN November 06, 2024 9:19am Chief Complaint Admit Date COPY RESULTS TO PCP ALSO HE HAS AN EORDE R IN November 06, 2024 9:19am ACUTE EAR CLOGGED February 14, 2025 12:43pm Reason for Visit Admit Date Excessive cerumen in right ear canal Sep tember 2024 12:43pm Additional Source Comments (unrecognized sect ion and content) No Status Records FoundNo Status Records FoundNo Status Records FoundNo Status Records FoundNo Status Records Found INFORMATION SOURCE (unrecogn ized section and content) DATE CREATED AUTHOR 11/18/2017 [facility] DATE CREATED AUTHOR AUTHOR'S ORGANIZ ATION 12/22/2020 [facility] [place] DATE CREATED AUTHOR AUTHOR'S ORGANIZ ATION 03/29/2022 [facility] DATE CREATED AUTHOR AUTHOR'S ORGANIZ ATION 05/22/2023 [facility] ([place] DATE CREATED AUTHOR AUTHOR'S ORGANIZ ATION 02/15/2025 [facility] Goals (unrecognized section and content) Goals may be documented in a n alternate sectionGoals may be documented in an alternate sectionGoals may be documented in an alternate sectionGoals may be documented in an alternate section No data available for this sectionGoals may be documented in an alternate sectionGoals may be documented in an alternate sectionGoals may be documented in an alternate sectionGoals may be documented in an alternate section No data available for this sectionGoals may be documented in an alternate sectionGoals may be documented in an alternate section Care Teams (unrecognized sec tion and content) Team Status: Active Member Role Status Dates Dr. Godfrey Cifuentes , DO Family Provider Active Dr. Godfrey Cifuentes , DO Primary Care Provider Active Team Status: Inactive Member Role Status Dates Dr. Godfrey Cifuentes , DO Primary Care Provider Active Shauna Horton NP-C Attending Provider, Referrin g Provider Active Team Status: Inactive Member Role Status Dates Dr. Godfrey Cifuentes , DO Primary Care Provider, Referr ing Provider Active Mak JETT PA Attending Provider Active Team Status: Inactive Member Role Status Dates Dr. Godfrey Cifuentes , DO Primary Care Provider, Referr ing Provider Active Mireille JETT PA Attending Provider Active Team Status: Inactive Member Role Status Dates Dr. Godfrey Cifuentes , DO Primary Care Provider Active Dr. Marcos Davis MD Attending Provider Active Team Status: Inactive Member Role Status Dates Dr. Godfrey Cifuentes , DO Primary Care Provider Active MALIHA Malone Attending Provider, Referring Prov ider Active Team Status: Inactive Member Role Status Dates Dr. Godfrey Cifuentes , DO Primary Care Provider, Referr ing Provider Active Dr. Jose Rodriguez , Attending Provider Active Team Status: Inactive Member Role Status Dates Dr. Godfrey Cifuentes , DO Primary Care Pr ovider, Attending Provider, Referring Provider Active Team Status: Active Member Role Status Dates Dr. Godfrey Cifuentes , DO Primary Care Provider Active Dr. Daljit Rodriguez MD Attending Provider Active Team Status: Inactive Member Role Status Dates Dr. Godfrey Cifuentes , DO Primary Care Provider Active Dr. Casa Nolasco MD Attending Provider, Referr ing Provider Active Team Status: Active Member Role Status Dates Dr. Godfrey Cifuentes , DO Primary Care Provider Active Dr. Serena Tate MD Attending Provider Activ e Dr. Jose Rodriguez , Referring Provider Active Team Status: Inactive Member Role Status Dates Dr. Godfrey Cifuentes , DO Primary Care Provider Active Dr. Jose Rodriguez , Attending Provider, Referring Provider Active Team Status: Active Member Role Status Dates Dr. Godfrey Cifuentes , DO Primary Care Provider Active Dr. Jose Rodriguez , DO Admit Provider, Attending Provider, Referring Provider, Other Provider Active Team Status: Inactive Member Role Status Dates Dr. Godfrey Cifuentes DO Primary Care Provider Active Start: November 06, 2024 End: November 06, 2024 Dr. Casa Nolasco MD Attending Provider Active Start: November 06, 2024 End: November 06, 2024 Dr. Casa Nolasco MD Referring Provider Active Start: November 06, 2024 End: November 06, 2024 Team Status: Active Member Role/Relationship Status Dates Dr. Godfrey Cifuentes DO Primary care physician Active Team Status: Inactive Member Role/Relationship Status Dates Dr. Godfrey Cifuentes DO Primary care physician Active Start: November 06, 2024 End: November 06, 2024 Dr. Casa Nolasco MD Attending physician Active Start: November 06, 2024 End: November 06, 2024 Dr. Casa Nolasco MD Referring Provider Active Start: November 06, 2024 End: November 06, 2024 Team Status: Inactive Member Role/Relationship Status Dates Dr. Godfrey Cifuentes DO Primary care physician Active Start: February 14, 2025 End: February 14, 2025 Dr. Godfrey Cifuentes , DO Referring Provider Active Start: February 14, 2025 End: February 14, 2025 Mak JETT PA Attending physician Active S tart: February 14, 2025 End: February 14, 2025 FOR RECORDS PERTAINING TO PATIENTS WHO ARE OR HAVE BEEN ENROLLED IN A CHEMICAL DEPENDENCY/SUBSTANCEABUSE PROGRAM, SOME INFORMATION MAY BE OMITTED. This clinical summary was aggregated from multiple sources. Caution should be exercised in using it in the provision of clinical care. This summary normalizes information from multiple sources, and as a consequence, information in this document may materially change the coding, format and clinical context of patient data. In addition, data may be omitted in some cases. CLINICAL DECISIONS SHOULD BE BASED ON THE PRIMARY CLINICAL RECORDS. [facility] [employer] [facility]. provides no warranty or guarantee of the accuracy or completeness of information in this document.
[2025-05-18 07:48] LABS: Hematocrit 44.5 % (40-54); Hemoglobin 15.2 g/dL (13.0-16.5); Immature Granulocytes Count 0.020 X10^3/uL (0.0-0.0); Mean Corp Hgb Conc 34.2 g/dL (32-36); Mean Corpuscular Volume 87.9 fL (80-94); Mean Platelet Vol. 8.7 fl (6.2-12.0); NRBC Flagged by Analyzer 0 % (0-5); Platelet Count 276 K/mm3 (150-450); RBC Distribution Width CV 13.1 % (11.6-14.6); RBC Distribution Width SD 42.2 fl (35.1-43.9); Red Blood Count 5.06 M/mm3 (4.6-6.2); White Blood Count 7.3 K/mm3 (4.4-11.0)
[2025-05-18 08:33] LABS: AST(SGOT) 26 U/L (<=37); Alanine Aminotransfer ALT/SGPT 20 U/L (<=46); Albumin, Serum 4.1 g/dL (3.4-4.8); Alkaline Phosphatase 109 U/L (40-129); Anion Gap 10 (5-15); BUN 12 mg/dL (4-19); BUN/Creat Ratio 11.2 RATIO (10-20); Calcium,Total 9.3 mg/dL (7.6-11.0); Carbon Dioxide 26.0 mmol/L (21.0-32.0); Chloride 103 mmol/L (98-108); Cholesterol 192 mg/dL (<=200); Globulin 3.0 g/dL (2.2-4.2); Glucose 103 mg/dL (70-99); Low Density Lipoprotein Calc. 96 mg/dL; Potassium 4.6 mmol/L (3.3-5.1); Triglycerides 220 mg/dL; Very Low Density Lipoprotein 44 mg/dL (5-40); cholesterol:hdl ratio screen 3.27
== END | disposition home or self-care (01) ==
LOC: LAB 07:15
PROVIDERS: PCP Family Medicine; Referring Provider Family Medicine; Visit Provider Family Medicine
DX: I10 Essential (primary) hypertension (principal)
CPT/HCPCS: 36415; 80053; 80061; 85025